=== PATIENT | male | born 1965 | race Caucasian/White ===

== ENCOUNTER → 2018-05-07 11:55 | Outpatient (CLI) | payer OTHER, SELFPAY ==
--- NOTE | 2018-05-07 12:03 | RAD_ITS ---
STUDY: X-RAY CHEST REASON FOR EXAM: Male, 53 years old. Cough TECHNIQUE: Frontal and lateral views of the chest COMPARISON: None. FINDINGS: The lungs are clear. There are no pleural effusions. There is no pneumothorax. The heart is normal in size. The visualized osseous structures are within normal limits. RAD/Chest PA and Lateral IMPRESSION: No acute thoracic pathology. Electronically Signed: Tyler Roebrt, at 23:55 EDT Tel , Service support ,
[2018-05-14 12:18] LABS: B. pertussis IgG 1.79 index (0.00-0.94)
== END ==
LOC: MFPLAB 11:56 → MTRAD 12:02
PROVIDERS: Family Provider Family Medicine; PCP Family Medicine; Visit Provider Family Medicine
DX: R05 Cough (principal)
CPT/HCPCS: 36415; 71046

== ENCOUNTER → 2018-11-18 14:08 | Outpatient (CLI) | payer OTHER, SELFPAY ==
[2018-10-24 08:27] VITALS: BMI 33.7
[2018-11-18 15:57] LABS: Vitamin B12 425 pg/mL (211-911); Vitamin D,25 Hydroxy 13.9 ng/mL (29.95-100.01)
[2018-11-18 16:02] LABS: Anion Gap 8 (5-15); BUN 12 mg/dL (7-18); BUN/Creat Ratio 12.4 RATIO (10-20); Calcium,Total 8.5 mg/dL (8.5-10.1); Chloride 105 mmol/L (98-107); Cholesterol 229 mg/dL (200); Creatinine, Serum 0.97 mg/dL (0.70-1.30); EST Glomerular Filtration Rate 86 mL/min (>60); Est Glom Filt Rate - Afr Amer 104 mL/min (>60); Glucose 89 mg/dL (74-106); High Density Lipoprotein 31 mg/dL; PSA,Total - Annual Screen 1.29 ng/mL (0.00-4.00); Potassium 3.9 mmol/L (3.5-5.1); Sodium Level 141 mmol/L (136-145); Triglycerides 416 mg/dL; Uric Acid 8.6 mg/dL (3.5-7.2)
== END ==
PROVIDERS: Family Provider Family Medicine; PCP Family Medicine; Visit Provider Family Medicine
DX: E78.5 Hyperlipidemia, unspecified (principal); M10.9 Gout, unspecified; E53.8 Deficiency of other specified B group vitamins; E55.9 Vitamin D deficiency, unspecified; Z12.5 Encounter for screening for malignant neoplasm of prostate; Z13.1 Encounter for screening for diabetes mellitus
CPT/HCPCS: 36415; 80048; 80061; 82306; 82607; 84153; 84550; G0103

== ENCOUNTER → 2018-12-14 09:20 | Outpatient (CLI) | payer OTHER, SELFPAY ==
[2018-10-24 08:27] VITALS: BMI 33.7
[2018-12-14 12:55] LABS: Uric Acid 6.7 mg/dL (3.5-7.2)
== END ==
PROVIDERS: Family Provider Family Medicine; PCP Family Medicine; Visit Provider Family Medicine
DX: E79.0 Hyperuricemia without signs of inflammatory arthritis and tophaceous disease (principal)
CPT/HCPCS: 36415; 84550

== ENCOUNTER → 2019-01-11 07:33 | Outpatient (CLI) | payer OTHER, SELFPAY ==
[2018-10-24 08:27] VITALS: BMI 33.7
--- NOTE | 2019-01-11 07:38 | CT_ITS ---
STUDY: CT CHEST WITHOUT CONTRAST REASON FOR EXAM: Male, 53 years old. Chronic productive cough. RADIATION DOSAGE (If Supplied By Facility): CTDIvol = ( 19.31 ) mGy, DLP = ( 623.68 ) mGycm TECHNIQUE: Transaxial imaging was performed without the administration of intravenous contrast material. Thin slice 1.25 mm axial 2-D MPR, 1.2 mm coronal and sagittal 2-D MPR in lung windows. Prone positioning. Individualized dose optimization techniques were used for this CT. COMPARISON: Chest x-ray 05/07/2018 FINDINGS: Supraclavicular: The right thyroid may be surgically absent. Isthmus nodule measuring 2.2 x 1.1 cm. Left thyroid inferior pole nodule measuring approximately 1.5 x 1.2 cm. Follow-up ultrasound characterization of the thyroid is recommended. Clinically correlate thyroid history. Body wall soft tissues: No acute process. Upper abdomen: No acute process. Osseous structures: No acute process. Mild thoracic spondylosis. Prominent low cervical degenerative disc disease at C6-C7 incompletely characterized. Mediastinum: Normal esophagus. No mass or lymphadenopathy. Heart: Borderline cardiomegaly, mild prominence of the left ventricle compared to the other chambers. No pericardial effusion or coronary calcifications. The right and left coronary arteries each emerge from the appropriate coronary sinus with right coronary dominance to the PDA with conventional branching anatomy. Aorta: Mild aneurysmal ectasia of the ascending aorta and proximal arch up to 4 cm. No visible atherosclerosis. Pulmonary arteries: Nondilated. Lungs: There is minimal dependent atelectasis. The lungs are otherwise clear. Central airways normal. Very minimal bronchial wall thickening in the lower lobes, nearly normal. Possibly reflecting mild chronic bronchiolitis. No apparent endobronchial lesions. No apparent aspirated or inspissated material within the bronchi. CT/Chest without Contrast IMPRESSION: Minimal bronchial wall thickening, suspicious for the presence of mild chronic bronchiolitis. No other acute pulmonary process is evident and there are no other significant chronic changes of lungs. No suspicious lesions. Borderline/mild cardiomegaly with prominence of left ventricle compared to the other chambers. Mild aneurysmal ectasia of the ascending aorta and proximal arch up to 4 cm. Electronically Signed: Bertin Shanks MD at 12:00 EDT Tel , Service support ,
== END ==
PROVIDERS: Family Provider Family Medicine; PCP Family Medicine; Referring Provider Internal Medicine Pulmonary Disease; Visit Provider Internal Medicine Pulmonary Disease
DX: R05 Cough (principal)
CPT/HCPCS: 71250

== ENCOUNTER → 2019-02-04 | Outpatient (CLI) | payer OTHER, SELFPAY ==
[2018-10-24 08:27] VITALS: BMI 33.7
[2019-02-04 16:15] LABS: Absolute Lymphocyte Count 1.52 X10^3/ul (0.83-4.51); Absolute Neutrophil Count 2.7 X10^3/uL (2.0-7.7); Basophil# 0.01 X10^3/uL; Basophil% 0.2 % (0-1); Eosinophils% 2.1 % (0-5); Hematocrit 45.2 % (40-54); Hemoglobin 14.9 g/dl (13.0-16.5); Lymphocyte # 1.52 X10^3/ul (4.0); Lymphocyte % 31.6 % (19-41); Mean Corpuscular Hgb 29.5 pg (27.0-32.0); Mean Corpuscular Volume 89.5 fL (80-94); Mean Platelet Vol. 11.5 fl (6.2-12.0); Monocyte# 0.47 X10^3/uL; Monocyte% 9.8 % (0-10); Neutrophil % 56.1 % (47-70); Platelet Count 188 K/mm3 (150-450); RBC Distribution Width CV 12.7 % (11.6-14.6); RBC Distribution Width SD 41.1 fl (35.1-43.9); Red Blood Count 5.05 M/mm3 (4.6-6.2); White Blood Count 4.8 K/mm3 (4.4-11.0)
[2019-02-04 16:19] LABS: POSITIVE COUNT NO; POSITIVE DIFFERENTIAL NO; POSITIVE MORPHOLOGY NO
[2019-02-04 16:33] LABS: Erythrocyte Sedimentation Rate 5 mm/hr (0-20)
[2019-02-07 14:11] LABS: Angiotensin Convert Enzyme 34 U/L (14-82)
== END | disposition home or self-care (01) ==
LOC: MTLAB 14:41
PROVIDERS: Family Provider Family Medicine; PCP Family Medicine; Referring Provider Internal Medicine Pulmonary Disease; Visit Provider Internal Medicine Pulmonary Disease
DX: T78.40XA Allergy, unspecified, initial encounter (principal); R05 Cough
CPT/HCPCS: 36415; 82164; 85025; 85652

== ENCOUNTER → 2019-02-11 | Outpatient (CLI) | payer OTHER, SELFPAY ==
[2018-10-24 08:27] VITALS: BMI 33.7
--- NOTE | 2019-02-11 15:00 | US_ITS ---
STUDY: THYROID ULTRASOUND REASON FOR EXAM: Male, 54 years old. Multinodular goiter. TECHNIQUE: Ultrasound evaluation of the thyroid was performed with real-time and static dinh-scale imaging. COMPARISON: CT of the chest, January 11, 2019. FINDINGS: RIGHT LOBE: The right lobe of the thyroid gland measures 4.9 x 2.1 x 1.9 cm. There is a homogeneous echotexture. In the upper pole of the right thyroid there is a 3 x 3 x 2 mm low-attenuation nodule with central hypodensity suggesting cyst or small nodule. In the upper to mid thyroid there is a hypoechoic nodule measuring 4 x 3 x 3 cm. In the lower pole there is isoechoic nodule measuring 1 x 0.7 x 0.9 cm. LEFT LOBE: The left lobe of the thyroid gland measures 4.0 x 2.0 x 1.9 cm. There is a homogeneous echotexture. There are no demonstrated solid, cystic or complex lesions. ISTHMUS: The isthmus measures 0.5 cm. The regional lymph nodes are normal. US/Thyroid IMPRESSION: Nodular densities in the right thyroid. Follow-up in 1 year is recommended. Electronically Signed: Benjamin Kong DO at 14:07 EDT Tel [phone], Service support ,
== END | disposition home or self-care (01) ==
PROVIDERS: Family Provider Family Medicine; PCP Family Medicine; Referring Provider Family Medicine; Visit Provider Family Medicine
DX: E07.89 Other specified disorders of thyroid (principal)
CPT/HCPCS: 76536

== ENCOUNTER → 2019-10-11 16:11 | Outpatient (CLI) | payer OTHER, SELFPAY ==
[2018-10-24 08:27] VITALS: BMI 33.7
[2019-10-11 17:36] LABS: Absolute Lymphocyte Count 1.67 X10^3/uL (0.83-4.51); Basophil# 0.03 X10^3/uL; Basophil% 0.6 % (0-1); Eosinophils% 1.9 % (0-5); Hematocrit 46.4 % (40-54); Hemoglobin 15.4 g/dL (13.0-16.5); Lymphocyte # 1.67 X10^3/ul (4.0); Mean Corp Hgb Conc 33.2 g/dL (32-36); Mean Corpuscular Hgb 30.3 pg (27.0-32.0); Mean Corpuscular Volume 91.3 fL (80-94); Mean Platelet Vol. 11.6 fl (6.2-12.0); Monocyte# 0.58 X10^3/uL; Monocyte% 10.8 % (0-10); NRBC Flagged by Analyzer 0 % (0-5); Neutrophil # 2.99 X10^3/uL (2.7-7.7); Neutrophil % 55.3 % (47-70); Platelet Count 187 K/mm3 (150-450); RBC Distribution Width CV 12.1 % (11.6-14.6); RBC Distribution Width SD 40.5 fl (35.1-43.9); Red Blood Count 5.08 M/mm3 (4.6-6.2); White Blood Count 5.4 K/mm3 (4.4-11.0)
[2019-10-11 18:03] LABS: ALB/GLOB Ratio 1.2 RATIO (0.9-2.4); AST(SGOT) 21 U/L (15-37); Alanine Aminotransfer ALT/SGPT 46 U/L (16-61); Albumin, Serum 3.9 g/dL (3.2-5.0); Alkaline Phosphatase 107 U/L (45-117); Anion Gap 4 (5-15); BUN 13 mg/dL (7-18); BUN/Creat Ratio 13.1 RATIO (10-20); Calcium,Total 8.9 mg/dL (8.5-10.1); Chloride 109 mmol/L (98-107); Creatinine, Serum 0.99 mg/dL (0.70-1.30); EST Glomerular Filtration Rate 83 mL/min (>60); Est Glom Filt Rate - Afr Amer 101 mL/min (>60); Globulin 3.3 g/dL (2.2-4.2); Glucose 82 mg/dL (74-106); Iron 66 ug/dL (65-175); Potassium 3.9 mmol/L (3.5-5.1); Protein, Total 7.2 g/dL (6.4-8.2); Sodium Level 140 mmol/L (136-145); Thyroid Stim Hormone (TSH) 1.68 uIU/mL (0.358-3.74); Vitamin B12 746 pg/mL (211-911); Vitamin D,25 Hydroxy 14.6 ng/mL (29.95-100.01)
[2019-10-11 18:05] LABS: Erythrocyte Sedimentation Rate 7 mm/hr (0-20)
[2019-10-15 12:07] LABS: Testosterone, Free 8.01 ng/dL (5.00-21.00)
[2019-10-15 13:44] LABS: Testosterone, % Free 2.56 % (1.50-4.20); Testosterone, Total 313 ng/dL (264-916)
== END ==
PROVIDERS: Family Provider Family Medicine; PCP Family Medicine; Referring Provider Family Medicine; Visit Provider Family Medicine
DX: E07.89 Other specified disorders of thyroid (principal); R79.89 Other specified abnormal findings of blood chemistry; E53.8 Deficiency of other specified B group vitamins; R53.83 Other fatigue; N52.9 Male erectile dysfunction, unspecified; Z12.5 Encounter for screening for malignant neoplasm of prostate
CPT/HCPCS: 36415; 80053; 82306; 82607; 83540; 84402; 84403; 84443; 85025; 85652

== ENCOUNTER → 2020-02-14 | Outpatient (CLI) | payer OTHER, SELFPAY ==
[2018-10-24 08:27] VITALS: BMI 33.7
[2020-02-14 17:35] LABS: Absolute Lymphocyte Count 1.52 X10^3/uL (0.83-4.51); Absolute Neutrophil Count 3.7 X10^3/uL (2.0-7.7); Basophil# 0.03 X10^3/uL; Basophil% 0.5 % (0-1); Eosinophil# 0.08 X10^3/uL; Eosinophils% 1.3 % (0-5); Hematocrit 46.6 % (40-54); Hemoglobin 15.2 g/dL (13.0-16.5); Lymphocyte # 1.52 X10^3/ul (4.0); Mean Corp Hgb Conc 32.6 g/dL (32-36); Mean Corpuscular Hgb 29.2 pg (27.0-32.0); Mean Corpuscular Volume 89.6 fL (80-94); Mean Platelet Vol. 11.8 fl (6.2-12.0); Monocyte% 11.5 % (0-10); NRBC Flagged by Analyzer 0 % (0-5); Neutrophil # 3.73 X10^3/uL (2.7-7.7); Neutrophil % 61.4 % (47-70); Platelet Count 189 K/mm3 (150-450); RBC Distribution Width CV 12.5 % (11.6-14.6); RBC Distribution Width SD 41.4 fl (35.1-43.9); White Blood Count 6.1 K/mm3 (4.4-11.0)
[2020-02-14 17:49] LABS: Erythrocyte Sedimentation Rate 9 mm/hr (0-20)
[2020-02-14 18:03] LABS: Vitamin B12 492 pg/mL (211-911); Vitamin D,25 Hydroxy 33.3 ng/mL
[2020-02-14 18:15] LABS: ALB/GLOB Ratio 1.2 RATIO (0.9-2.4); AST(SGOT) 33 U/L (15-37); Alanine Aminotransfer ALT/SGPT 63 U/L (16-61); Albumin, Serum 3.9 g/dL (3.2-5.0); Alkaline Phosphatase 99 U/L (45-117); Anion Gap 7 (5-15); BUN 13 mg/dL (7-18); BUN/Creat Ratio 12.1 RATIO (10-20); CRP 3.63 mg/L (0.0-3.0); Calcium,Total 8.8 mg/dL (8.5-10.1); Chloride 105 mmol/L (98-107); Creatinine, Serum 1.07 mg/dL (0.70-1.30); EST Glomerular Filtration Rate 76 mL/min (>60); Est Glom Filt Rate - Afr Amer 92 mL/min (>60); Globulin 3.3 g/dL (2.2-4.2); Glucose 111 mg/dL (74-106); Potassium 3.9 mmol/L (3.5-5.1); Protein, Total 7.2 g/dL (6.4-8.2); Sodium Level 139 mmol/L (136-145)
== END | disposition home or self-care (01) ==
LOC: MTLAB 15:57
PROVIDERS: PCP Family Medicine; Referring Provider Family Medicine; Visit Provider Family Medicine
DX: E53.8 Deficiency of other specified B group vitamins (principal); R10.9 Unspecified abdominal pain; R79.89 Other specified abnormal findings of blood chemistry
CPT/HCPCS: 36415; 80053; 82306; 82607; 85025; 85652; 86140

== ENCOUNTER → 2020-07-11 | Outpatient (CLI) | payer OTHER, SELFPAY ==
[2018-10-24 08:27] VITALS: BMI 33.7
[2020-07-11 16:25] LABS: Uric Acid 5.1 mg/dL (3.5-7.2)
[2020-07-11 18:25] LABS: Hemoglobin A1c 5.4 % (3.8-5.6)
== END | disposition home or self-care (01) ==
LOC: MTLAB 13:21
PROVIDERS: PCP Family Medicine
DX: M10.9 Gout, unspecified (principal); B49 Unspecified mycosis
CPT/HCPCS: 36415; 83036; 84550

== ENCOUNTER → 2020-08-10 | Outpatient (CLI) | payer OTHER, SELFPAY ==
[2018-10-24 08:27] VITALS: BMI 33.7
[2020-08-10 15:01] LABS: Absolute Lymphocyte Count 0.82 X10^3/uL (0.83-4.51); Absolute Neutrophil Count 5.3 X10^3/uL (2.0-7.7); Basophil# 0.02 X10^3/uL; Basophil% 0.3 % (0-1); Hematocrit 46.6 % (40-54); Hemoglobin 15.3 g/dL (13.0-16.5); Lymphocyte # 0.82 X10^3/ul (4.0); Lymphocyte % 12.7 % (19-41); Mean Corp Hgb Conc 32.8 g/dL (32-36); Mean Corpuscular Hgb 30.3 pg (27.0-32.0); Mean Corpuscular Volume 92.3 fL (80-94); Monocyte# 0.26 X10^3/uL; NRBC Flagged by Analyzer 0 % (0-5); Neutrophil # 5.29 X10^3/uL (2.7-7.7); Neutrophil % 81.8 % (47-70); POSITIVE MORPHOLOGY YES; Platelet Count 234 K/mm3 (150-450); RBC Distribution Width CV 13.2 % (11.6-14.6); RBC Distribution Width SD 44.7 fl (35.1-43.9); Red Blood Count 5.05 M/mm3 (4.6-6.2); White Blood Count 6.5 K/mm3 (4.4-11.0)
[2020-08-10 15:02] LABS: Differential Indicated SCAN CRITERIA MET
[2020-08-10 15:29] LABS: Vitamin B12 400 pg/mL (211-911)
[2020-08-10 16:41] LABS: Anisocytosis RARE; Macrocytosis RARE; Platelet Estimate ADEQUATE (ADEQ); Red Cell Morphology N CHROM NORMAL (NORM C&C)
== END | disposition home or self-care (01) ==
PROVIDERS: PCP Family Medicine
DX: D61.818 Other pancytopenia (principal)
CPT/HCPCS: 36415; 82607; 82746; 85025

== ENCOUNTER → 2020-09-21 09:10 | Outpatient (CLI) | payer OTHER, SELFPAY ==
[2018-10-24 08:27] VITALS: BMI 33.7
[2020-09-21 11:17] LABS: Anion Gap 5 (5-15); BUN 14 mg/dL (7-18); BUN/Creat Ratio 14.7 RATIO (10-20); Calcium,Total 8.7 mg/dL (8.5-10.1); Chloride 107 mmol/L (98-107); Cholesterol 206 mg/dL (200); Creatinine, Serum 0.95 mg/dL (0.70-1.30); EST Glomerular Filtration Rate 87 mL/min (>60); Est Glom Filt Rate - Afr Amer 106 mL/min (>60); Glucose 109 mg/dL (74-106); High Density Lipoprotein 32 mg/dL; PSA,Total - Annual Screen 1.37 ng/mL (0.00-4.00); Potassium 3.6 mmol/L (3.5-5.1); Sodium Level 140 mmol/L (136-145); Triglycerides 289 mg/dL; Very Low Density Lipoprotein 58 mg/dL (5-40)
[2020-09-21 14:38] LABS: Vitamin D,25 Hydroxy 20.5 ng/mL
== END ==
PROVIDERS: PCP Family Medicine; Referring Provider Family Medicine; Visit Provider Family Medicine
DX: E55.9 Vitamin D deficiency, unspecified (principal); Z13.1 Encounter for screening for diabetes mellitus; Z13.220 Encounter for screening for lipoid disorders; Z12.5 Encounter for screening for malignant neoplasm of prostate
CPT/HCPCS: 36415; 80048; 80061; 82306; 84153; G0103

== ENCOUNTER 2021-11-21 11:16 | Outpatient (CLI) | payer OTHER, SELFPAY ==
[2021-11-21 13:03] LABS: Vitamin B12 422 pg/mL (211-911); Vitamin D,25 Hydroxy 27.9 ng/mL
[2021-11-21 13:48] LABS: Anion Gap 5 (5-15); BUN 11 mg/dL (7-18); BUN/Creat Ratio 12.4 RATIO (10-20); Calcium,Total 8.6 mg/dL (8.5-10.1); Chloride 107 mmol/L (98-107); Cholesterol 210 mg/dL (200); Creatinine, Serum 0.89 mg/dL (0.70-1.30); EST Glomerular Filtration Rate 94 mL/min (>60); Est Glom Filt Rate - Afr Amer 114 mL/min (>60); Glucose 94 mg/dL (74-106); High Density Lipoprotein 36 mg/dL; PSA,Total - Annual Screen 2.01 ng/mL (0.00-4.00); Sodium Level 140 mmol/L (136-145); Triglycerides 240 mg/dL; Uric Acid 5.6 mg/dL (3.5-7.2); Very Low Density Lipoprotein 48 mg/dL (5-40)
== END 2021-11-21 23:59 | disposition short-term general hospital (02) ==
LOC: MTLAB 11:17
PROVIDERS: PCP Family Medicine; Referring Provider Family Medicine; Visit Provider Family Medicine
DX: Z13.1 Encounter for screening for diabetes mellitus (principal); Z12.5 Encounter for screening for malignant neoplasm of prostate; E78.5 Hyperlipidemia, unspecified; M10.9 Gout, unspecified; E53.8 Deficiency of other specified B group vitamins; E55.9 Vitamin D deficiency, unspecified
CPT/HCPCS: 36415; 80048; 80061; 82306; 82607; 84153; 84550; G0103

== ENCOUNTER → 2022-08-26 | Outpatient (CLI) | payer OTHER, SELFPAY ==
--- NOTE | 2022-08-26 13:35 | RAD_ITS ---
INDICATION: Neck pain. EXAMINATION/TECHNIQUE: X-RAY - XR Spine Cervical 4 or 5 Views COMPARISON: None. FINDINGS: VERTEBRAE: Preserved vertebral body height. No fracture. No spondylolisthesis. Straightening of the cervical lordosis. No significant facet arthropathy. DISCS: Multilevel disc space narrowing and endplate spondylosis. Bilateral neural foraminal narrowing. NECK SOFT TISSUES: No prevertebral soft tissue widening. LUNG APICES: Clear. RAD/Cerv Spine 4 or 5 Views IMPRESSION: Degenerative changes cervical spine without acute fracture or subluxation.. Electronically Signed: Benjamin Kong DO at 17:53 EDT ,
[2022-08-26 15:30] LABS: Absolute Lymphocyte Count 1.31 X10^3/uL (0.83-4.51); Absolute Neutrophil Count 2.9 X10^3/uL (2.0-7.7); Basophil# 0.03 X10^3/uL; Basophil% 0.6 % (0-1); Eosinophil# 0.09 X10^3/uL; Eosinophils% 1.8 % (0-5); Hematocrit 44.4 % (40-54); Hemoglobin 15.1 g/dL (13.0-16.5); Lymphocyte # 1.31 X10^3/ul (0.83-4.51); Lymphocyte % 26.8 % (19-41); Mean Corpuscular Hgb 31.9 pg (27.0-32.0); Mean Corpuscular Volume 93.7 fL (80-94); Mean Platelet Vol. 11.2 fl (6.2-12.0); Monocyte% 10.2 % (0-10); NRBC Flagged by Analyzer 0 % (0-5); Neutrophil # 2.94 X10^3/uL (2.7-7.7); Neutrophil % 60.4 % (47-70); Platelet Count 184 K/mm3 (150-450); RBC Distribution Width CV 12.8 % (11.6-14.6); RBC Distribution Width SD 43.8 fl (35.1-43.9); Red Blood Count 4.74 M/mm3 (4.6-6.2); White Blood Count 4.9 K/mm3 (4.4-11.0)
[2022-08-26 16:00] LABS: Erythrocyte Sedimentation Rate 8 mm/hr (0-20)
[2022-08-26 16:17] LABS: ALB/GLOB Ratio 1.1 RATIO (0.9-2.4); AST(SGOT) 27 U/L (15-37); Alanine Aminotransfer ALT/SGPT 47 U/L (16-61); Albumin, Serum 3.5 g/dL (3.2-5.0); Alkaline Phosphatase 88 U/L (45-117); Anion Gap 7 (5-15); BUN 8 mg/dL (7-18); BUN/Creat Ratio 8.4 RATIO (10-20); CRP < 2.90 mg/L (0.0-3.0); Calcium,Total 8.5 mg/dL (8.5-10.1); Chloride 107 mmol/L (98-107); Creatinine, Serum 0.95 mg/dL (0.70-1.30); EST Glomerular Filtration Rate 87 mL/min (>60); Est Glom Filt Rate - Afr Amer 105 mL/min (>60); Globulin 3.1 g/dL (2.2-4.2); Glucose 148 mg/dL (74-106); Potassium 3.6 mmol/L (3.5-5.1); Protein, Total 6.6 g/dL (6.4-8.2); Rheumatoid Factor < 10.0 IU/mL (<15); Sodium Level 140 mmol/L (136-145); Thyroid Stim Hormone (TSH) 1.08 uIU/mL (0.358-3.74); Uric Acid 4.9 mg/dL (3.5-7.2)
[2022-08-28 16:10] LABS: ANTINUCLEAR ANTIBODIES DIRECT Negative (Negative)
[2022-09-05 14:37] LABS: HLA B27 Negative (.)
== END | disposition home or self-care (01) ==
PROVIDERS: PCP Family Medicine; Referring Provider Family Medicine; Visit Provider Family Medicine
DX: M54.2 Cervicalgia (principal)
CPT/HCPCS: 36415; 72050; 80053; 81374; 84443; 84550; 85025; 85652; 86038; 86140; 86431

== ENCOUNTER → 2023-06-04 | Outpatient (CLI) | payer OTHER, SELFPAY ==
[2023-06-04 10:43] LABS: Anion Gap 6 (5-15); BUN 10 mg/dL (7-18); Calcium,Total 8.8 mg/dL (8.5-10.1); Chloride 105 mmol/L (98-107); Cholesterol 162 mg/dL (200); Creatinine, Serum 1.11 mg/dL (0.70-1.30); EST Glomerular Filtration Rate 72 mL/min (>60); Est Glom Filt Rate - Afr Amer 87 mL/min (>60); Glucose 115 mg/dL (74-106); High Density Lipoprotein 37 mg/dL; PSA,Total - Annual Screen 1.38 ng/mL (0.00-4.00); Potassium 3.8 mmol/L (3.5-5.1); Sodium Level 138 mmol/L (136-145); Triglycerides 173 mg/dL; Uric Acid 5.2 mg/dL (3.5-7.2); Very Low Density Lipoprotein 35 mg/dL (5-40)
== END | disposition home or self-care (01) ==
LOC: MTLAB 08:54
PROVIDERS: PCP Family Medicine; Visit Provider Family Medicine
DX: M10.9 Gout, unspecified (principal); Z13.1 Encounter for screening for diabetes mellitus; Z13.220 Encounter for screening for lipoid disorders; Z12.5 Encounter for screening for malignant neoplasm of prostate
CPT/HCPCS: 36415; 80048; 80061; 84153; 84550; G0103

== ENCOUNTER 2023-06-23 17:00 | Outpatient (RCR) | payer OTHER, SELFPAY ==
--- NOTE | 2023-04-14 09:23 | HP.OTEVAL_ITS ---
Patient's Visit Information KASSIE BURRIS is a 58 year old M, referred to Occupational Therapy by GBAY KLEIN, with a diagnosis of pain in right elbow, sprain in right elbow, right distal biceps repair. Date of Evaluation: 04/14/23 Occupational Therapist: Fiorella Polanco - Subjective Patient arrived for OT evaluation. Patient tore his distal biceps loading logs on a trailer. DOI was Mar 25 2023. Date of surgery 04/03/23. Patient is right hand dominant. Patient is 11 days post op. Patient has a follow up with surgeon ~05/15/23. Patient lives with his who can assist with ADLs/IADL's as needed. Patient has a R adjustable hinged elbow brace on all the time except for showering. Patient's brace stops him at -30 deg extension. Patient wants to return to work after April 28, on light duty. 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 Patient is in the office 50% of the time and out of the office 50% of the time. - ADLs Comments: indep prior to injury. pt needs assistance cutting food up or other two handed tasks - Pain R wrist pain 3 Pain Intensity Range: 8 - ROM Shoulder: R WNL Forearm: R able to achieve neutral supination and full pronation Wrist: R flexion 75, extension 45 ROM Comments: Patient's brace stops him at -30 deg extension and he is able to achieve ~95 deg flexion with brace on. most pain with supination and pronation and wrist movement at this time - Strength Certified Lactation Educator: L 74, 86, 87 Lateral Pinch: 20 Tripod Pinch: 18 Tip-to-Tip Pinch: 16 - Edema Other: no significant swelling noted - Sensation Sensation Comments: numbness in the right thumb - Quick DASH-Disab of Arm,Shoulder& Hand Quick DASH Score: 84.0900 - Goals Goal:: Patient will demonstrate improved solicitor patent strength in R hand within 5 degrees of L hand by discharge. Goal:: Patient will demonstrate WNL AROM in R UE by discharge. Goal:: Patient will report decreased pain to <3/10 on at least 4 occasions. Goal:: Patient will be indep with incision massage to assist with scar mgmt and healing. Goal:: Patient will report indep with all two handed tasks at home by d/c. - Rehabilitation General Assessment: Patient arrived 11 days post op R distal biceps repair (04/03/23) in a hinged elbow brace stopped at -30 deg extension. He is wearing the elbow brace all day except for bathing and is actively moving the elbow within the available flexion/extension range (-30 - 95 degrees). He is currently non weight bearing and not able to complete lifting with the R arm. Patient is having most pain/difficulty using R wrist and completing supination/pronation, possibly a result of the lateral antebrachial cutaneous nerve compression from surgery. Patient was provided with HEP including AROM to R shoulder, elbow, forearm, wrist, and hand with encouragement to complete 25 reps x 4 per day. Educated on edema mgmt as well. Scheduled patient 2x/week for 12 weeks to progress per protocol (volume 1 page 66 Diagnosis and Treatment Manual for Phyisicans and Therapists). Rehabilitation Potential: Good - Anticipated Interventions A/AAROM/PROM, Strengthening, Edema Control, Scar Care, Triggerpoint Release, Desensitization, Modalities, Home Program - Visit Plan Frequency: 2x /Week Duration: 3 Months General Plan: 2x/week for 12 weeks following distal biceps repair protocol. Plans to use moist heat, ultrasound, BTE, manual therapy and incison/scar mgmt, ROM, and strengthening when appropriate. TEXT: Thank you for the opportunity to evaluate your patient. For Medicare and Medicare HMO plans, please review the plan of care and approve it. It will need to be FAXED BACK to us at [phone] for Medicare purposes. Please let me know if there are questions or concerns regarding this plan of care. Physician Signature: Date:
--- NOTE | 2023-05-12 17:40 | OTREVAL_ITS ---
Re-Evaluation Intro: GABY KLEIN, It has been my pleasure to treat KASSIE BURRIS over the last 9 visits for pain in right elbow, sprain in right elbow, right distal biceps repair. Please see the progress note below for an update on the occupational therapy plan of care! Subjective Subjective: Patient is about 5.5 weeks post surgery. Follow-up on with doctor. 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 Goal:: Patient will demonstrate WNL AROM in R UE by discharge. Goal:: Patient will report decreased pain to <3/10 on at least 4 occasions. Goal:: Patient will be indep with incision massage to assist with scar mgmt and healing. Goal:: Patient will report indep with all two handed tasks at home by d/c. Anticipated Interventions Anticipated Interventions Anticipated Interventions: A/AAROM/PROM, Strengthening, Edema Control, Scar Care, Triggerpoint Release, Desensitization, Modalities and Home Program Re-Evaluation Ending Re-evaluation ending: Please do not hesitate to contact me at [phone] by phone or if you have questions or concerns regarding this new plan of care! Sincerely, Fiorella Polanco
--- NOTE | 2023-06-19 10:11 | HP.OTREVAL ---
Re-Evaluation Intro: GABY KLEIN, It has been my pleasure to treat KASSIE BURRIS over the last 18 visits for pain in right elbow, sprain in right elbow, right distal biceps repair. Please see the progress note below for an update on the occupational therapy plan of care! Subjective Subjective: Patient is 11 weeks 6 days post surgery distal biceps tendon repair. Pt stated that he has his follow up appt w/ surgeon next . 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, L 90 pinch R tripod: 23, L tripod 20 R lateral: 25, L 24 R pincer 18, L 18 R wrist flexion: 70 R wrist extension 60 R supination: 80 R pronation: 75 R elbow flexion: 120, extension - 5 pt has done well with ROM and strength of solidworks mechanical designer/pinch still has limitations with lifting due to sx Plan Plan Frequency: 2x /Week Duration: 3 Months Visits in this POC: 40 Plan: cont POC Goals Goals Patient Goals: Regain Strength, Decrease Pain, Return to Work, Use Hand/Wrist/Arm Normally Again, Decrease Tingling/Numbness, Increase ROM and Be More Independent in ADLS Goal:: Patient will demonstrate improved solidworks mechanical designer strength in R hand within 5 degrees of L hand by discharge. Goal:: Patient will demonstrate WNL AROM in R UE by discharge. Goal:: Patient will report decreased pain to <3/10 on at least 4 occasions. Goal:: Patient will be indep with incision massage to assist with scar mgmt and healing. Goal:: Patient will report indep with all two handed tasks at home by d/c. Anticipated Interventions Anticipated Interventions Anticipated Interventions: A/AAROM/PROM, Strengthening, Edema Control, Scar Care, Triggerpoint Release, Desensitization, Modalities and Home Program Re-Evaluation Ending Re-evaluation ending: Please do not hesitate to contact me at [phone] by phone or if you have questions or concerns regarding this new plan of care! Sincerely, Argelia Mccurdy, OTR/L, CHT
--- NOTE | 2023-10-01 12:43 | HP.OT.NRP ---
Patient Information Patient Information: KASSIE BURRIS was seen in my office for initial evaluation on 04/14/23. The following Plan of Care was established for this patient: POC Established Initial Frequency: 2x /Week Initial Duration: 3 Months Plan: cont POC Anticipated Interventions Anticipated Interventions: A/AAROM/PROM, Strengthening, Edema Control, Scar Care, Triggerpoint Release, Desensitization, Modalities and Home Program Last Seen Last Seen: This patient was last seen in our office 06/23/23. Pertinent comments regarding their Occupational therapy will appear below: pt progressed well toward his OT goals. 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 scheduled and due to time lapse in services pt d.c At this point I will be discontinuing this patient from occupational therapy. I would be happy to see this patient again in the future if found appropriate by the physician. Thank you! Argelia Mccurdy, OTR/L, CHT
== END 2023-06-23 19:00 | disposition home or self-care (01) ==
LOC: OT 17:00
PROVIDERS: PCP Family Medicine
DX: S53.491D Other sprain of right elbow, subsequent encounter (principal); M25.521 Pain in right elbow
CPT/HCPCS: 97110; 97140; 97166; 97530

== ENCOUNTER → 2024-06-23 | Outpatient (CLI) | payer OTHER, SELFPAY ==
[2024-06-23 10:14] LABS: Vitamin D,25 Hydroxy 25.1 ng/mL
[2024-06-23 10:26] LABS: Cholesterol 226 mg/dL (200); High Density Lipoprotein 53 mg/dL; Triglycerides 249 mg/dL; Uric Acid 5.4 mg/dL (3.5-7.2); Very Low Density Lipoprotein 50 mg/dL (5-40)
== END | disposition home or self-care (01) ==
LOC: MFPLAB 08:45
PROVIDERS: PCP Family Medicine; Visit Provider Family Medicine
DX: Z12.5 Encounter for screening for malignant neoplasm of prostate (principal); E55.9 Vitamin D deficiency, unspecified; Z13.220 Encounter for screening for lipoid disorders; M10.9 Gout, unspecified
CPT/HCPCS: 36415; 80061; 82306; 84153; 84550; G0103

== ENCOUNTER → 2024-12-20 | Outpatient (CLI) | payer OTHER, SELFPAY ==
[2024-12-20 11:09] LABS: Erythrocyte Sedimentation Rate 14 mm/hr (0-20)
[2024-12-20 11:11] LABS: Absolute Lymphocyte Count 1.14 X10^3/uL (0.83-4.51); Absolute Neutrophil Count 2.8 X10^3/uL (2.0-7.7); Basophil# 0.04 X10^3/uL; Basophil% 0.9 % (0-1); Eosinophil# 0.19 X10^3/uL; Eosinophils% 4.1 % (0-5); Hematocrit 47.5 % (40-54); Hemoglobin 15.8 g/dL (13.0-16.5); Lymphocyte # 1.14 X10^3/ul (0.83-4.51); Lymphocyte % 24.6 % (19-41); Mean Corp Hgb Conc 33.3 g/dL (32-36); Mean Corpuscular Hgb 31.2 pg (27.0-32.0); Mean Corpuscular Volume 93.7 fL (80-94); Mean Platelet Vol. 10.5 fl (6.2-12.0); Monocyte# 0.47 X10^3/uL; Monocyte% 10.1 % (0-10); NRBC Flagged by Analyzer 0 % (0-5); Neutrophil # 2.79 X10^3/uL (2.7-7.7); Neutrophil % 60.1 % (47-70); Platelet Count 205 K/mm3 (150-450); RBC Distribution Width CV 13.5 % (11.6-14.6); RBC Distribution Width SD 46.5 fl (35.1-43.9); Red Blood Count 5.07 M/mm3 (4.6-6.2); White Blood Count 4.6 K/mm3 (4.4-11.0)
[2024-12-25 02:06] LABS: Alternaria alternata <0.10 kU/L (Class 0); Aspergillus fumigatus <0.10 kU/L (Class 0); Bahia Grass <0.10 kU/L (Class 0); Beef <0.10 kU/L (Class 0); Bermuda Grass <0.10 kU/L (Class 0); Bluegrass, Kentucky <0.10 kU/L (Class 0); Cat Hair/Dander, Standard <0.10 kU/L (Class 0); Cedar, Mountain <0.10 kU/L (Class 0); Chocolate <0.10 kU/L (Class 0); Cladosporium herbarum <0.10 kU/L (Class 0); Cockroach, American <0.10 kU/L (Class 0); Codfish <0.10 kU/L (Class 0); Corn <0.10 kU/L (Class 0); D farinae Mite <0.10 kU/L (Class 0); D pteronyssinus <0.10 kU/L (Class 0); Dog Epithelia <0.10 kU/L (Class 0); Egg, Whole <0.10 kU/L (Class 0); Elm, American White <0.10 kU/L (Class 0); Hazelnut Tree <0.10 kU/L (Class 0); Hickory, White <0.10 kU/L (Class 0); Johnson Grass <0.10 kU/L (Class 0); Maple/Box Elder <0.10 kU/L (Class 0); Milk (Cow) <0.10 kU/L (Class 0); Mucor racemosus <0.10 kU/L (Class 0); Mugwort <0.10 kU/L (Class 0); Mulberry, White <0.10 kU/L (Class 0); Mussels <0.10 kU/L (Class 0); Nettle <0.10 kU/L (Class 0); Oak, White <0.10 kU/L (Class 0); Peanut <0.10 kU/L (Class 0); Penicillium chrysogen <0.10 kU/L (Class 0); Pigweed, Rough <0.10 kU/L (Class 0); Plantain, English <0.10 kU/L (Class 0); Pork <0.10 kU/L (Class 0); Ragweed, Short/Common <0.10 kU/L (Class 0); Salmon <0.10 kU/L (Class 0); Sheep Sorrel(Dock) <0.10 kU/L (Class 0); Shrimp <0.10 kU/L (Class 0); Soybean <0.10 kU/L (Class 0); Stemphylium herbarum <0.10 kU/L (Class 0); Sweet Gum <0.10 kU/L (Class 0); Sycamore, American <0.10 kU/L (Class 0); Tuna <0.10 kU/L (Class 0); Wheat <0.10 kU/L (Class 0)
== END | disposition home or self-care (01) ==
LOC: MFPLAB 08:14
PROVIDERS: PCP Family Medicine; Referring Provider Family Medicine; Visit Provider Family Medicine
DX: L20.9 Atopic dermatitis, unspecified (principal)
CPT/HCPCS: 36415; 84443; 85025; 85652; 86003; 86005

== ENCOUNTER → 2025-04-10 | Outpatient (CLI) | payer OTHER, SELFPAY ==
[2025-04-10 18:21] LABS: Calcium 9.2 mg/dL (7.6-11.0); Magnesium 2.3 mg/dL (1.5-2.2); Potassium 4.3 mmol/L (3.3-5.1)
[2025-04-10 18:25] LABS: Vitamin B12 416 pg/mL (180-914)
== END | disposition home or self-care (01) ==
LOC: MFPLAB 16:30
PROVIDERS: PCP Family Medicine; Referring Provider Family Medicine; Visit Provider Family Medicine
DX: R25.2 Cramp and spasm (principal)
CPT/HCPCS: 36415; 82310; 82607; 83735; 84132

== ENCOUNTER → 2025-06-02 | Outpatient (CLI) | payer OTHER, SELFPAY ==
--- NOTE | 2025-06-02 07:33 | ART_ITS ---
Reason For Study Reason For Study: Bilateral leg pain and cramps Procedure A bilateral lower extremity continuous wave Doppler with analog waveform analysis and ankle brachial indexes. Left Segmental Pressures Left brachial= 150mmHg. Left posterior tibial artery = 173mmHg. Left dorsalis pedis artery = 161mmHg. Left digit = 111 mmHg. The left dorsalis pedis waveforms are triphasic. The left posterior tibial artery waveforms are triphasic. Right Segmental Pressures Right brachial= 145mmHg. Right posterior tibial artery = 178mmHg. Right dorsalis pedis artery = 171mmHg. Right digit = 109 mmHg. The right dorsalis pedis waveforms are triphasic. The right posterior tibial artery waveforms are triphasic. Indices The right ankle brachial index by the dorsalis pedis is 1.14. The right ankle brachial index by the posterior tibial artery is 1.19. The right digital-brachial index is 0.73. The left ankle brachial index by the dorsalis pedis is 1.07. The left ankle brachial index by the posterior tibial artery is 1.15. The left digital-brachial index is 0.74. VL/Ankle Brachial Index Interpretation Summary Triphasic Doppler waveforms are noted at ankle level bilaterally. Pulse-volume recordings appear satisfactory at ankle and digital levels bilaterally. Resting ankle-brachial indices are normal bilat erally. Digital-brachial indices are normal bilaterally. There is no evidence of significant arterial occlusive disease in the lower ext remities bilaterally. Ordering Physician: Augustine Reyes Referring Physician: Cliff Mirza MD Performed By: Mary Zurita RVT
--- OUTSIDE RECORDS SUMMARY | 2025-06-02 07:40 | XMS RPT_ITS | CCD ---
Author Organization [facility] Care Team Providers Care Repacker Name Role Phone Hermes SHAW, Naren Luo Unavailable BENIGNO NORRIS MD Attending Unavailable BENIGNO NORRIS MD Primary Care Unavailable BENIGNO NORRIS MD Admitting Unavailable Marina Mandujano MD Unavailable [phone] Unavailable Primary Care Provider UnavailAyo Lawrence MD Primary Care Provider AYO MIRZA Primary Care UnavailNEEMA Oliva Referring Unavailable GRISEL FLORENCE Attending Unavailable AYO MIRZA Primary Care UnavailNEEMA Oliva Attending Unavailable GRISEL FLORENCE Referring Unavailable AYO MIRZA Referring UnavailAYO Lawrence Primary Care UnavailGRISEL Alexander Attending Unavailable Marina Mandujano MD Unavailable Dr. Ayo Mirza MD Primary Care Provider Dr. Ayo Mirza MD Attending Provider Dr. Ayo Mirza MD Referring Provider John Baird Attending Provider [phone] Ayo Mirza Primary Care Unavailable Ayo Mirza Attending Unavailable Ayo Mirza Referring Unavailable Ayo Mirza Primary Care Unavailable Ayo Mirza Attending Unavailable Ayo Mirza Primary Care Unavailable McMorrow CHRONOMETER ASSEMBLER AND ADJUSTER, Augustine Attending Unavailable McMorrow CHRONOMETER ASSEMBLER AND ADJUSTER, Augustine Referring Unavailable Ayo Mirza Referring Unavailable Ayo Mirza Primary Care Unavailable John Baird Attending Unavailable Ayo Mirza Referring Unavailable Ayo Mirza Primary Care Unavailable Ayo Mirza Attending Unavailable Allergies Allergy Classification Reported Allergen(s) Allergy Type Date of Onset Reaction(s) Facility (4 sources) Budesonide / formoterol; Translations: [BUDESONIDE-FORM OTEROL] Drug Allergy 06-23-2023 Rash [facility] [place] (4 sources) Escitalopram; Translations: [ESCITALOPRAM] Drug Allergy 06-23-2023 Other: See Comments [facility] [place] (4 sources) varenicline; Translations: [VARENICLINE] Drug Allergy 06-23-2023 Diarrhea [facility] Medications Current Medications Medication Drug Class(es) Dates Sig (Normalized) Sig (Original) allopurinol 100 mg oral tablet (14 sources) Xanthine Oxidase Inhibitor Start: 02-28-2024 take 2 tablets by mouth once daily Allopurinol 100 mg tablet Active 200 mg PO daily February 28, 2024 12:00am Start: 09-10-2021 End: 08-14-2023 take 1 tablet by mouth once daily allopurinol (ZYLOPRIM) 300 MG tablet Take 1 Tablet by mouth daily. 90 Tablet 3 09/10/2021 Active take 2 tablets by mo [facility] once daily allopurinol (ZYLOPRIM) 100 mg tablet Take 200 mg by mouth once daily. 0 Active Comment on above: Take 300 mg by mouth once daily. Take 1 tablet by miguel once daily. Take 200 mg by mouth once daily. azithromycin 250 mg oral tablet (1 source) Macrolide Antimicrobial Start: 03-16-20 25 take 2-5 tablets by mouth once daily Azithromycin 250 mg tablet Active 0 PO .COMPLEX 6 March 16, 2025 12:00am take 500 mg today (day 1), then 250 mg for 4 days (days 2-5) PO colchicine 0.6 mg oral tablet (10 sources) Start: 05-23-20 End: 08-14-20 23 take 1 tablet by mouth once daily Colcrys 0.6 MG tablet Take 1 Tablet by mouth daily. 30 Tablet 5 05/23/2021 Active Start: 11-21-2017 End: 02-28-2024 Colchicine 0.6 mg capsule Di scontinued 0 .ROUTE .COMPLEX 3 November 21, 2017 1:00am May 5th, 2024 9:10am 1.2mg PO x1, then 0.6mg PO 1 hour later Start: 11-21-2017 Colchicine Act stacey 0 .ROUTE .COMPLEX November 21, 2017 12:00am 1.2mg PO x1, then 0.6mg PO 1 hour later Comment on above: Take 1 tablet by miguel th once daily. dicyclomine hydrochloride 10 mg oral capsule (4 sources) Anticholinergic Start: 02-15-20 take 1 capsule by mouth three times daily dicyclomine (BENTYL) 10 MG capsule Take 10 mg by mouth 3 times daily. 02/15/2020 Active escitalopram 5 mg oral tablet (4 sources) Serotonin Reuptake Inhibitor Start: 02-21-20 take 1 tablet by mouth once daily escitalopram (LEXAPRO) 5 MG tablet Take 5 mg by mouth daily. 02/21/2020 Active polyethylene glycol 3350 904209 mg / potassium chloride 2970 mg / sodium bicarbonate 6740 mg / sodium chloride 5860 mg / sodium sulfate 15345 mg powder for oral solution (1 source) Osmotic Laxative Start: 06-23-20 End: 06-23-20 peg 3350-Electrolytes (GOLYTELY) 236-22.74-6.74 -5.86 gram suspension Take 4,000 mL by mouth one time only for 1 dose. 1 Each 0 06/23/2023 06/23/2023 Active Comment on above: Take 4,000 mL by miguel one time only for 1 dose. Completed/Discontinued Medications Medication Drug Class(es) Dates Sig (Normalized) Sig (Original) acyclovir 0.05 mg/mg topical ointment (2 sources) Herpesvirus Nucleoside Analog DNA Polymerase Inhibitor, Herpes Simplex Virus Nucleoside Analog DNA Polymerase Inhibitor, Herpes Zoster Virus Nucleoside Analog DNA Polymerase Inhibitor Start: 04-26-2024 End: 05-03-2024 Acyclovir 5 % ointment Discontinued 1 NMA TOPICAL 6 times per day 15 7 April 26, 2024 12:00am May 02, 2024 12:00am May 03, 2024 12:04am cephalexin 500 mg oral capsule (3 sources) Cephalosporin Antibacterial Start: 04-23-2022 End: 06-13-2022 take 1 capsule by mouth three times daily Cephalexin 500 mg capsule Discontinued 500 mg PO THREE TIMES A DAY April 23, 2022 12:00am June 13, 2022 1:30pm cyclobenzaprine hydrochloride 10 mg oral tablet (3 sources) Muscle Relaxant End: 08-14-2023 take 1 tablet by mouth every eight hours as needed cyclobenzaprine (FLEXERIL) 10 mg tablet Take 10 mg by mouth three times daily as needed. 0 08/14/2023 Discontinued Comment on above: Take 10 mg by mouth three times daily as needed. LORazepam 1 mg oral tablet (3 sources) Benzodiazepine take 1 tablet by mouth three times daily LORazepam (ATIVAN) 1 mg tablet Take 1 mg by mouth three times daily. 0 Active Comment on above: Take 1 mg by mouth t hree times daily. meloxicam 15 mg oral tablet (4 sources) Nonsteroidal Anti-inflammatory Drug Start: 04-26-2024 End: 03-16-2025 take 1 tablet by mouth once daily Meloxicam 15 mg tablet Discontinued 15 mg PO daily April 26, 2024 12:00am March 16, 2025 3:44pm Start: 04-26-2024 End: 04-26-2024 take 1 tablet by mouth once daily Meloxicam 7.5 mg tablet Discontinued 7.5 mg PO DAILY April 26, 2024 12:00am April 26, 2024 2:29pm methylPREDNISolone 4 mg oral tablet (3 sources) Corticosteroid Start: 05-17-2018 End: 05-22-2018 take 1 tablet by mouth once Methylprednisolone (Medrol (Jose Antonio)) 4 mg tablets,dose pack Discontinued 4 mg PO per package directions 21 5 May 17, 2018 12:00am May 21, 2018 12:00am May 22, 2018 12:07am predniSONE 10 mg oral tablet (16 sources) Start: 02-28-2024 End: 03-14-2024 Prednisone 10 mg tablet Discontinued 10 mg PO .COMPLEX as needed for itching 35 15 February 28, 2024 12:00am March 13, 2024 12:00am March 14, 2024 12:04am 10 mg orally ; 40mg x5 days, 20mg x5 days, 10mg x5 days PRN; Start: 07-30-2021 predniSONE (DE LTASONE) 20 MG tablet For gout attack: take 3 tabs once daily x 3 days, then 2 tabs/day x 3 days then 1 tab daily x 2 days. 17 Tablet 1 07/30/2021 Active Start: 05-02-2020 End: 08-14-2023 predniSONE (DELTASONE) 5 MG tablet take 4 tablets by mouth daily for 3 days then 2 for 3 days then 1 for 4 days 05/02/2020 Active Start: 10-24-2018 End: 06-13-2022 take 2 tablets by mouth once daily, then take 1 tablet by mouth once daily, then take 0.5 tablet by mouth once daily Prednisone 20 mg tablet Discontinued 20 mg PO DAILY October 24, 2018 1:00am June 13, 2022 1:30pm 2 pills daily x 3 days, then 1 pill daily x 4 days, then 1/2 pill daily x 4 days. Comment on above: take 4 tablets by mo uth daily for 3 days then 2 for 3 days then 1 for 4 days sildenafil 100 mg oral tablet (3 sources) Phosphodiesterase 5 Inhibitor Start: End: sildenafil (VIAGRA) 100 mg tablet Take 30 min to 1 hour before sexual activity. 10 tablet 11 07/26/2020 08/14/2023 Discontinued Comment on above: Take 30 min to 1 anne r before sexual activity. tadalafil 20 mg oral tablet (3 sources) Phosphodiesterase 5 Inhibitor End: 023 take 1 tablet by mouth once daily Tadalafil (CIALIS) 20 mg tab(s) Take 20 mg by mouth once daily. 0 08/14/2023 Discontinued Comment on above: Take 20 mg by mouth once daily. triamcinolone acetonide 1 mg/ml topical cream (3 sources) Corticosteroid End: 023 triamcinolone acetonide (KENALOG) 0.1 % cream Apply to affected area twice daily. 0 08/14/2023 Discontinued Comment on above: Apply to affected ar ea twice daily. valACYclovir 1000 mg oral tablet (5 sources) Herpesvirus Nucleoside Analog DNA Polymerase Inhibitor, Herpes Simplex Virus Nucleoside Analog DNA Polymerase Inhibitor, Herpes Zoster Virus Nucleoside Analog DNA Polymerase Inhibitor Start: 022 End: Valacyclovir (Valtrex) 1 gram tablet Discontinued 2000 mg PO Q12H as needed February 28, 2024 9:10am March 16, 2025 3:44pm Problems Active Problems Problem Classification Problem Date Documented Da te Episodic/Chronic Acute bronchitis (2 sources) Acute bronchitis; Translations: [Acute bronchitis, unspecified] 03-16-2025 Episodic Allergic reactions (1 source) Atopic dermatitis, unspecified; Translations: [Atopic dermatitis, unspecified] Onset: 01-04-2025 Chronic Disorders of lipid metabolism (7 sources) Hyperlipidemia; Translations: [Hyperlipidemia, unspecified] Onset: 09-26-2005 05-09-2020 Chronic Gout and other crystal arthropathies (7 sources) 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; Translations: [Chronic gout due to renal impairment, multiple sites, without tophus (tophi)] Onset: 05-09-2020 05-09-2020 Chronic Headache; including migraine (2 sources) Headache; Translations: [Headache] 03-16-2025 Episodic Headache; including migraine (1 source) Headache; including migraine; Translations: [Headache, unspecified] Onset: 03-16-2025 Open wounds of extremities (3 sources) Puncture wound of left lower leg; Translations: [Puncture wound without foreign body, left lower leg, initial encounter] 04-23-2022 Episodic Other and unspecified benign neoplasm (5 sources) History of polyp of colon; Translations: [Personal history of colonic polyps] Onset: 08-07-2023 06-23-2023 Episodic Other and unspecified benign neoplasm (1 source) Tubular adenoma ; Translations: [Benign neoplasm, unspecified site] 08-14-2023 Episodic Other and unspecified benign neoplasm (1 source) Personal history of colonic polyps; Translations: [History of colonic polyps] Onset: 08-07-2023 Episodic Other connective tissue disease (1 source) Trochanteric bursitis; Translations: [Trochanteric bursitis, left hip] Onset: 03-12-2018 03-12-2018 Episodic Other connective tissue disease (2 sources) Cramp and spasm; Translations: [Cramp and spasm] Onset: 04-13-2025 Episodic Other nervous system disorders (2 sources) Compression injury of nerve; 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, unspecified] 04-26-2024 Chronic Other nutritional; endocrine; and metabolic disorders (7 sources) Metabolic syndrome X; Translations: [Metabolic syndrome] Onset: 09-26-2005 05-09-2020 Chronic Other skin disorders (3 sources) Skin lesion; Translations: [Disorder of the skin and subcutaneous tissue, unspecified] 01-02-2022 Episodic Other skin disorders (2 sources) Eruption; Translations: [Rash and other nonspecific skin eruption] 02-28-2024 Episodic Skin and subcutaneous tissue infections (3 sources) Cellulitis of lower leg; Translations: [Cellulitis of left lower limb] 04-23-2022 Episodic Superficial injury; contusion (6 sources) Wood splinter under fingernail; Translations: [Superficial foreign body of unspecified finger, initial encounter] 06-13-2022 Episodic Viral infection (5 sources) Herpes simplex type 1 infection; Translations: [Herpesviral infection, unspecified] 01-02-2022 Episodic Past or Other Problems Problem Classification Problem Date Documented Da te Episodic/Chronic Other circulatory disease (7 sources) H/O: hypertension; Translations: [Personal history of other diseases of the circulatory system] Onset: 09-26-2005 05-09-2020 Episodic Other connective tissue disease (3 sources) Pain in finger; Translations: [Pain in unspecified finger(s)] Onset: 05-24-2012 05-24-2012 Episodic Other screening for suspected conditions (not mental disorders or infectious disease) (3 sources) Encounter for screening for malignant neoplasm of colon; Translations: [Patient encounter status] Onset: 08-07-2023 08-07-2023 Episodic Unclassified (1 source) Problem Results Test Name Value Interpretation Reference Range Facility L501.0895on 04-10-2025 Calcium [Mass/Vol] 9.2 mg/dL Normal 7.6-11.0 [facility] Comment on above: Order Comment: Order Date: 04/10/25 Order Info: [id number] - CA Order Info: [id number] - MG Order Info: [id number] - K Performed By: #### L 501.0895 #### [facility] [address] [place] [address], [address] Magnesiumon 04-10-2025 Magnesium [Mass/Vol] 2.3 mg/dL High 1.5-2.2 [facility] Comment on above: Order Comment: Order Date: 06/23/24 Order Info: [id number] - VITD25 Performed By: #### L 506.1000, L501.1400, L500.4100, L501.9910 #### [facility] [address] [place], [place], [address] Magnesium measurement (mass/ volume)Ordered By: Augustine Reyes on 04-10-2025 Magnesium (Unsp spec) [Mass/Vol] 2.3 mg/dL High 1.5-2.2 [facility] Potassiumon 04-10-2025 Potassium [Moles/Vol] 4.3 mmol/L Normal 3.3-5.1 [facility] Comment on above: Order Comment: Order Date: 04/10/25 Order Info: [id number] - CA Order Info: [id number] - MG Order Info: [id number] - K Performed By: #### L 501.5600 #### [facility] [address] [place], [place], [address] Potassium measurement (mass/ volume)Ordered By: Augustine Reyes on 04-10-2025 Potassium (Unsp spec) [Mass/Vol] 4.3 mmol/L 3.3-5.1 [facility] Serum or plasma calcium jadiel urement (mass/volume)Ordered By: Augustine Reyes on 04-10-2025 Calcium [Mass/Vol] 9.2 mg/dL 7.6-11.0 [facility] Vitamin B12on 04-10-2025 Cobalamin (Vitamin B12) [Mass/Vol] 416 pg/mL Normal 180-914 [facility] Comment on above: Order Comment: Order Date: 04/10/25 Order Info: [id number] - CA Order Info: [id number] - MG Order Info: [id number] - K Performed By: #### L 503.0106 #### [facility] [address] [place], [place], [address] Vitamin B12 ser/plasOrdered By: Augustine Reyes on 04-10-2025 Cobalamin (Vitamin B12) [Mass/Vol] 416 pg/mL 180-914 [facility] Urgent Care Visit Reporton 0 03-16-2025 Urgent Care Visit Report [facility] [address] , [address] [place], [place] [address] [phone] OFFICE VISIT Date of Service: 03/16/25 MR#: [id number] Acct: [id number] Name: HUBERT BURRIS Rep #: [id number] : 1965 Provider: JAVON Jeffries Age/Sex: 60/M Location: [facility] Status: Signed Intake Vital Signs 04/26/24 14:26 03/16/25 15:40 Height 5 ft 10 in 5 ft 10 in Weight: 235 lb 250 lb 8 oz BMI 33.7 35.9 BP 142/96 H 124/88 H Blood Pressure Location Lt brachial Position Sitting Sitting Respiration 16 Pulse 71 73 Pulse Source Monitor Temp 98 F 97.9 F Temp Source Temporal Oral Pulse Oximetry (%) 97 98 Oxygen Delivery Method room air room air Intake Visit Reasons: CONGESTION IN CHEST / COUGH Accompanied by: Self Allergies No Known Allergies Allergy (Verified 03/16/25 15:44) Medications ???Medication ???Instructions ???Recorded ???Confirmed ???Type allopurinol 100 mg tablet 200 mg PO QDAY 02/28/24 03/16/25 H istory azithromycin 250 mg tablet See Rx Instructions PO .COMPLEX #6 03/16/25 03/16/25 Rx tabs Nurse's Note: Patient has chest congestion and cough and headache and sinus pressure going on. Patient cough just started today but the other stuff has been going on for 4 days. PFSH Medical History (Updated 03/16/25 @ 16:14 by JAVON Christianson) Herpetic yovanny Pinched nerve in neck Cellulitis of left lower leg Puncture wound of left lower leg Contusion of left lower leg Herpes simplex type 1 infection Skin lesion Gout Surgical History History of hernia repair History of elbow surgery H/O shoulder surgery Fusion of toes Family History Father Cancer Mother Dementia Social History Smokeless tobacco user: chewing tobacco alcohol intake: current alcohol intake frequency: holidays/special occasions only HPI HPI Details: HUBERT BURRIS, is a 60 M who presents to the office today for complaint of cough, congestion and sinus pressure/pain along with headache for the past week. Patient denies hemoptysis, shortness of breath or difficult breathing. No fever, chills, sweats. No nausea, vomiting or diarrhea. No loss of taste or smell. No other associated symptoms or alleviating/aggravati ng factors. ROS Const Constitutional: No other (As above) Exam Const General: cooperative and well developed HENMT Head: normal to inspection and atraumatic Ears: hearing grossly normal bilaterally Nose: nasal discharge clear Face and sinus: normal facial exam Mouth: oral mucosae normal Throat: abnormal tonsil bilaterally hypertrophy 1+ Resp Effort Inspection: normal respiratory effort and no audible wheezes Auscultation: Bilateral: Clear to Auscultation Cardio Palpation: normal PMI Rate: regular rate Rhythm: regular rhythm Neuro General: patient alert and CN's II-XI intact bilaterally Psych Appearance: grossly normal Mental Status: mental status grossly normal Office Meds ketorolac 30 mg/mL injection syringe Performing Provider: JAVON Christianson Performing Location[facility] Administered by: Antoinette Alvarado MA on 03/16/25 16:01 Dose Route Admin Location Dispensed Lot Number Expiration Date [facility] Man ufacturer 30 mg IM Right deltoid 1 mL [id number] 07/26/25 57255-455-12 [employer] Coding Level of Care Code Off vis,new,level 3 Diagnoses Acute bronchitis J20.9 Headache R51.9 Assessment and Plan Assessment and Plan (1) Acute bronchitis: Status: Acute (2) Headache: Status: Acute Orders: Orders Ketorolac Injection 03/16/25 R51.9 - Headache, unspecified Medications: New azithromycin take 500 mg today (day 1), then 250 mg for 4 days (days 2-5) PO 6 tabs 0RF Plan Azithromycin as prescribed today. Toradol injection given in the office today. Encouraged to get plenty of rest, drink lots of clear liquids, and use Tylenol or Ibuprofen (unless contraindicated) for fever and comfort. Patient also educated on other symptomatic management techniques. To be seen in 7-10 days if no improvement; sooner if worsening of symptoms. Patient advised of potential red flags and when appropriate to report to the ED. Patient verbalized understanding and agreement with all the above. 03/17/25 0803 Date John Montesinos Signature: Date (if applicable) CC: Normal [facility] Allergens, Zone 8on 12-26-19 25 A. ALTERNATA <0.10 Normal Class 0 [facility] Comment on above: Order Comment: Order Date: 06/23/24 Order Info: [id number] - VITD25 Performed By: #### L 506.1000, L501.1400, L500.4100, L501.9910 #### [facility] [address] [place], [address] ASPERGILLUS FUM <0.10 Normal Class 0 [facility] Comment on above: Order Comment: Order Date: 06/23/24 Order Info: [id number] - VITD25 Performed By: #### L 506.1000, L501.1400, L500.4100, L501.9910 #### [facility] [address] [place], [address] BAHIA GRASS <0.10 Normal Class 0 [facility] Comment on above: Order Comment: Order Date: 06/23/24 Order Info: [id number] - VITD25 Performed By: #### L 506.1000, L501.1400, L500.4100, L501.9910 #### [facility] [address] [place], [address] BERMUDA GRASS <0.10 Normal Class 0 [facility] Comment on above: Order Comment: Order Date: 06/23/24 Order Info: [id number] - VITD25 Performed By: #### L 506.1000, L501.1400, L500.4100, L501.9910 #### [facility] [address] [place], [address] [place], [place] <0.10 Normal Class 0 [facility] Comment on above: Order Comment: Order Date: 06/23/24 Order Info: [id number] - VITD25 Performed By: #### L 506.1000, L501.1400, L500.4100, L501.9910 #### [facility] [address] [place], [address] CAT HAIR/DANDER <0.10 Normal Class 0 [facility] Comment on above: Order Comment: Order Date: 06/23/24 Order Info: [id number] - VITD25 Performed By: #### L 506.1000, L501.1400, L500.4100, L501.9910 #### [facility] [address] [place], [address] CLADOSPOR HERB <0.10 Normal Class 0 [facility] Comment on above: Order Comment: Order Date: 06/23/24 Order Info: [id number] - VITD25 Performed By: #### L 506.1000, L501.1400, L500.4100, L501.9910 #### [facility] [address] [place], [address] COCKROACH,AMER <0.10 Normal Class 0 [facility] Comment on above: Order Comment: Order Date: 06/23/24 Order Info: [id number] - VITD25 Performed By: #### L 506.1000, L501.1400, L500.4100, L501.9910 #### [facility] [address] [place], [address] D FARINAE MITE <0.10 Normal Class 0 [facility] Comment on above: Order Comment: Order Date: 06/23/24 Order Info: [id number] - VITD25 Performed By: #### L 506.1000, L501.1400, L500.4100, L501.9910 #### [facility] [address] [place], [address] D PTERONYSSINUS <0.10 Normal Class 0 [facility] Comment on above: Order Comment: Order Date: 06/23/24 Order Info: [id number] - VITD25 Performed By: #### L 506.1000, L501.1400, L500.4100, L501.9910 #### [facility] [address] [place], [address] DOG EPITHELIA <0.10 Normal Class 0 [facility] Comment on above: Order Comment: Order Date: 06/23/24 Order Info: [id number] - VITD25 Performed By: #### L 506.1000, L501.1400, L500.4100, L501.9910 #### [facility] [address] [place], [address] ELM,AMER WHITE <0.10 Normal Class 0 [facility] Comment on above: Order Comment: Order Date: 06/23/24 Order Info: [id number] - VITD25 Performed By: #### L 506.1000, L501.1400, L500.4100, L501.9910 #### [facility] [address] [place], [address] HAZELNUT TREE <0.10 Normal Class 0 [facility] Comment on above: Order Comment: Order Date: 06/23/24 Order Info: [id number] - VITD25 Performed By: #### L 506.1000, L501.1400, L500.4100, L501.9910 #### [facility] [address] [place], [address] HICKORY, WHITE <0.10 Normal Class 0 [facility] Comment on above: Order Comment: Order Date: 06/23/24 Order Info: [id number] - VITD25 Performed By: #### L 506.1000, L501.1400, L500.4100, L501.9910 #### [facility] [address] [place], [address] MARY GRASS <0.10 Normal Class 0 [facility] Comment on above: Order Comment: Order Date: 06/23/24 Order Info: [id number] - VITD25 Performed By: #### L 506.1000, L501.1400, L500.4100, L501.9910 #### [facility] [address] [place], [address] MAPLE/BOX ELDER <0.10 Normal Class 0 [facility] Comment on above: Order Comment: Order Date: 06/23/24 Order Info: [id number] - VITD25 Performed By: #### L 506.1000, L501.1400, L500.4100, L501.9910 #### [facility] [address] [place], [address] MOUNTAIN CEDAR <0.10 Normal Class 0 [facility] Comment on above: Order Comment: Order Date: 06/23/24 Order Info: [id number] - VITD25 Performed By: #### L 506.1000, L501.1400, L500.4100, L501.9910 #### [facility] [address] [place], [address] MUCOR RACEMOSUS <0.10 Normal Class 0 [facility] Comment on above: Order Comment: Order Date: 06/23/24 Order Info: [id number] - VITD25 Performed By: #### L 506.1000, L501.1400, L500.4100, L501.9910 #### [facility] [address] [place], [address] MUGWORT <0.10 Normal Class 0 [facility] Comment on above: Order Comment: Order Date: 06/23/24 Order Info: [id number] - VITD25 Performed By: #### L 506.1000, L501.1400, L500.4100, L501.9910 #### [facility] [address] [place], [address] MULBERRY, WHITE <0.10 Normal Class 0 [facility] Comment on above: Order Comment: Order Date: 06/23/24 Order Info: [id number] - VITD25 Performed By: #### L 506.1000, L501.1400, L500.4100, L501.9910 #### [facility] [address] [place], [address] NETTLE <0.10 Normal Class 0 [facility] Comment on above: Order Comment: Order Date: 06/23/24 Order Info: [id number] - VITD25 Performed By: #### L 506.1000, L501.1400, L500.4100, L501.9910 #### [facility] [address] [place], [address] OAK, WHITE <0.10 Normal Class 0 [facility] Comment on above: Order Comment: Order Date: 06/23/24 Order Info: [id number] - VITD25 Performed By: #### L 506.1000, L501.1400, L500.4100, L501.9910 #### [facility] [address] [place], [address] PEN CHRYSOGEN <0.10 Normal Class 0 [facility] Comment on above: Order Comment: Order Date: 06/23/24 Order Info: [id number] - VITD25 Performed By: #### L 506.1000, L501.1400, L500.4100, L501.9910 #### [facility] [address] [place], [address] PIGWEED, ROUGH <0.10 Normal Class 0 [facility] Comment on above: Order Comment: Order Date: 06/23/24 Order Info: [id number] - VITD25 Performed By: #### L 506.1000, L501.1400, L500.4100, L501.9910 #### [facility] [address] [place], [address] PLANTAIN,ENGLSH <0.10 Normal Class 0 [facility] Comment on above: Order Comment: Order Date: 06/23/24 Order Info: [id number] - VITD25 Performed By: #### L 506.1000, L501.1400, L500.4100, L501.9910 #### [facility] [address] [place], [address] RAGWEED SH/COM <0.10 Normal Class 0 [facility] Comment on above: Order Comment: Order Date: 06/23/24 Order Info: [id number] - VITD25 Performed By: #### L 506.1000, L501.1400, L500.4100, L501.9910 #### [facility] [address] [place], [address] SHEEP SORREL <0.10 Normal Class 0 [facility] Comment on above: Order Comment: Order Date: 06/23/24 Order Info: [id number] - VITD25 Performed By: #### L 506.1000, L501.1400, L500.4100, L501.9910 #### [facility] [address] [place], [address] STEMPHYLIUM HER <0.10 Normal Class 0 [facility] Comment on above: Order Comment: Order Date: 06/23/24 Order Info: [id number] - VITD25 Performed By: #### L 506.1000, L501.1400, L500.4100, L501.9910 #### [facility] [address] [place], [address] SWEET GUM <0.10 Normal Class 0 [facility] Comment on above: Order Comment: Order Date: 06/23/24 Order Info: [id number] - VITD25 Performed By: #### L 506.1000, L501.1400, L500.4100, L501.9910 #### [facility] [address] [place], [address] SYCAMORE, AMER <0.10 Normal Class 0 [facility] Comment on above: Order Comment: Order Date: 06/23/24 Order Info: [id number] - VITD25 Performed By: #### L 506.1000, L501.1400, L500.4100, L501.9910 #### [facility] [address] [place], [address] L5500.0550on 12-25-2024 BEEF <0.10 Normal Class 0 [facility] Comment on above: Order Comment: Test( s) 589733-P434-PaY Cockroach, [place]er; 397643- W373-UqX Greenwood, White; 074938-R491-AoB Sweet Gum were developed and had performance characteristics determined by [facility]. These tests have not been cleared or approved by the U.S. Food and Drug Administration. The FDA has determined that such clearance or approval is not necessary. These tests are used for clinical purposes. These should not be regarded as investigational or for research. Performed By: #### L 5500.0550 #### [facility] [address] [place], [address] CHOCOLATE <0.10 Normal Class 0 [facility] Comment on above: Order Comment: Test( s) 910690-D160-QhT Cockroach, [place]er; 388312- P045-DoX [place], White; 555930-Q609-UiQ Sweet Gum were developed and had performance characteristics determined by [facility]. These tests have not been cleared or approved by the U.S. Food and Drug Administration. The FDA has determined that such clearance or approval is not necessary. These tests are used for clinical purposes. These should not be regarded as investigational or for research. Performed By: #### L 5500.0550 #### [facility] [address] [place], [address] CODFISH <0.10 Normal Class 0 [facility] Comment on above: Order Comment: Test( s) 859892-H642-UzN Cockroach, [place]; 790106- L449-KnO Greenwood, White; 855799-Y668-JsH Sweet Gum were developed and had performance characteristics determined by [facility]. These tests have not been cleared or approved by the U.S. Food and Drug Administration. The FDA has determined that such clearance or approval is not necessary. These tests are used for clinical purposes. These should not be regarded as investigational or for research. Performed By: #### L 5500.0550 #### [facility] [address] [place], [address] COMMENT Comment Normal . [facility] Comment on above: Order Comment: Test( s) 008867-E139-SnS Cockroach, [place]; 262232- G289-UlS Greenwood, White; 332133-X798-TqJ Sweet Gum were developed and had performance characteristics determined by [facility]. These tests have not been cleared or approved by the U.S. Food and Drug Administration. The FDA has determined that such clearance or approval is not necessary. These tests are used for clinical purposes. These should not be regarded as investigational or for research. Result Comment: Bianca sparks of Specific IgE Class Description of Class ----- < 0.10 0 Negative 0.10 - 0.31 0/I Equivocal/Low 0.32 - 0.55 I Low 0.56 - 1.40 II Moderate 1.41 - 3.90 III High 3.91 - 19.00 IV Very High 19.01 - 100.00 V Very High >100.00 Very High Performed By: #### L 5500.0550 #### [facility] [address] [place], [address] CORN <0.10 Normal Class 0 [facility] Comment on above: Order Comment: Test( s) 176461-V565-MbE Cockroach, [place]er; 382053- B408-PfZ Greenwood, White; 889482-F020-CaF Sweet Gum were developed and had performance characteristics determined by [facility]. These tests have not been cleared or approved by the U.S. Food and Drug Administration. The FDA has determined that such clearance or approval is not necessary. These tests are used for clinical purposes. These should not be regarded as investigational or for research. Performed By: #### L 5500.0550 #### [facility] [address] [place], [place], [id number] (405) EGG, WHOLE <0.10 Normal Class 0 [facility] Comment on above: Order Comment: Test( s) 440876-P780-YrO Cockroach, [place]; 049505- J920-EdW [place], White; 237271-F207-RnN Sweet Gum were developed and had performance characteristics determined by [facility]. These tests have not been cleared or approved by the U.S. Food and Drug Administration. The FDA has determined that such clearance or approval is not necessary. These tests are used for clinical purposes. These should not be regarded as investigational or for research. Result Comment: Perf ormed at: - [facility] [address] [id number] Sanforizer: Cat Jean MD, Phone: [phone] Performed By: #### L 5500.0550 #### [facility] [address] [place], [place], [id number] [phone] MILK (COW) <0.10 Normal Class 0 [facility] Comment on above: Order Comment: Test( s) 108380-C889-FeL Cockroach, [place]er; 194422- W026-FyB [place]wood, White; 407730-S831-WaE Sweet Gum were developed and had performance characteristics determined by [facility]. These tests have not been cleared or approved by the U.S. Food and Drug Administration. The FDA has determined that such clearance or approval is not necessary. These tests are used for clinical purposes. These should not be regarded as investigational or for research. Performed By: #### L 5500.0550 #### [facility] [address] [place], [address] (455) MUSSELS <0.10 Normal Class 0 [facility] Comment on above: Order Comment: Test( s) 712676-Q928-BpN Cockroach, [place]er; 036787- C821-ZoR Greenwood, White; 736865-J945-OkB Sweet Gum were developed and had performance characteristics determined by [facility]. These tests have not been cleared or approved by the U.S. Food and Drug Administration. The FDA has determined that such clearance or approval is not necessary. These tests are used for clinical purposes. These should not be regarded as investigational or for research. Performed By: #### L 5500.0550 #### [facility] [address] [place], [address] PEANUT <0.10 Normal Class 0 [facility] Comment on above: Order Comment: Test( s) 495280-T950-YxM Cockroach, [place]; 129187- G712-TqE Greenwood, White; 215387-U900-MsQ Sweet Gum were developed and had performance characteristics determined by [facility]. These tests have not been cleared or approved by the U.S. Food and Drug Administration. The FDA has determined that such clearance or approval is not necessary. These tests are used for clinical purposes. These should not be regarded as investigational or for research. Performed By: #### L 5500.0550 #### [facility] [address] [place], [address] PORK <0.10 Normal Class 0 [facility] Comment on above: Order Comment: Test( s) 268070-R287-NyX Cockroach, [place]; 296193- H377-ZlW Greenwood, White; 905760-A227-McW Sweet Gum were developed and had performance characteristics determined by [facility]. These tests have not been cleared or approved by the U.S. Food and Drug Administration. The FDA has determined that such clearance or approval is not necessary. These tests are used for clinical purposes. These should not be regarded as investigational or for research. Performed By: #### L 5500.0550 #### [facility] [address] [place], [address] SALMON <0.10 Normal Class 0 [facility] Comment on above: Order Comment: Test( s) 251819-G816-RrV Cockroach, [place]; 422512- G725-GoM Greenwood, White; 609975-V244-FaR Sweet Gum were developed and had performance characteristics determined by [facility]. These tests have not been cleared or approved by the U.S. Food and Drug Administration. The FDA has determined that such clearance or approval is not necessary. These tests are used for clinical purposes. These should not be regarded as investigational or for research. Performed By: #### L 5500.0550 #### [facility] [address] [place], [place], [id number] SHRIMP <0.10 Normal Class 0 [facility] Comment on above: Order Comment: Test( s) 365020-Y709-BhM Cockroach, [place]er; 193270- N802-PjL Greenwood, White; 293896-P773-WyQ Sweet Gum were developed and had performance characteristics determined by [facility]. These tests have not been cleared or approved by the U.S. Food and Drug Administration. The FDA has determined that such clearance or approval is not necessary. These tests are used for clinical purposes. These should not be regarded as investigational or for research. Performed By: #### L 5500.0550 #### [facility] [address] [place], [place], [id number] SOYBEAN <0.10 Normal Class 0 [facility] Comment on above: Order Comment: Test( s) 845364-B150-CfZ Cockroach, [place]; 750025- U393-YjJ Greenwood, White; 878766-D045-DnO Sweet Gum were developed and had performance characteristics determined by [facility]. These tests have not been cleared or approved by the U.S. Food and Drug Administration. The FDA has determined that such clearance or approval is not necessary. These tests are used for clinical purposes. These should not be regarded as investigational or for research. Performed By: #### L 5500.0550 #### [facility] [address] [place], [address] TUNA <0.10 Normal Class 0 [facility] Comment on above: Order Comment: Test( s) 279129-Z396-TnV Cockroach, [place]; 118442- Y949-IcP Greenwood, White; 885430-B273-EwZ Sweet Gum were developed and had performance characteristics determined by [facility]. These tests have not been cleared or approved by the U.S. Food and Drug Administration. The FDA has determined that such clearance or approval is not necessary. These tests are used for clinical purposes. These should not be regarded as investigational or for research. Performed By: #### L 5500.0550 #### [facility] [address] [place], [address] WHEAT <0.10 Normal Class 0 [facility] Comment on above: Order Comment: Test( s) 978707-L376-DdL Cockroach, [place]er; 234530- V585-ApP Greenwood, White; 058381-I522-KgQ Sweet Gum were developed and had performance characteristics determined by [facility]. These tests have not been cleared or approved by the U.S. Food and Drug Administration. The FDA has determined that such clearance or approval is not necessary. These tests are used for clinical purposes. These should not be regarded as investigational or for research. Performed By: #### L 5500.0550 #### [facility] [address] [place], [id number] Thyroid Stim Hormone (TSH)on 12-21-2024 TSH 1.060 uIU/mL Normal 0.300-4.200 [facility] Comment on above: Order Comment: Order Date: 06/23/24 Order Info: [id number] - VITD25 Performed By: #### L 506.1000, L501.1400, L500.4100, L501.9910 #### [facility] [address] [place], [place], [id number] A. alternata IgE Qn (S)Order ed By: Ayo Mirza on 12-20-2024 Alternaria alternata IgE Allergen <0.10 kU/L Class 0 [facility] Absolute lymphocyte countOrd ered By: Ayo Mirza on 12-20-2024 Lymphocytes Auto (Unsp spec) [#/Vol] 1.14 10*3/uL 0.83-4.51 [facility] Absolute neutrophil countOrd ered By: Ayo Mirza on 12-20-2024 Neutrophils (Bld) [#/Vol] 2.8 10*3/uL 2.0-7.7 [facility] Hong Konger Cockroach IgE Qn (S )Ordered By: Ayo Mirza on 12-20-2024 [place]er Cockroach Allergen <0.10 kU/L Class 0 [facility] Hong [place]er house dust mite IgE Qn (S)Ordered By: Ayo Mirza on 12-20-2024 Dermatophagoides farinae Allergen <0.10 kU/L Class 0 [facility] Hong [place]er sycamore IgE serumO rdered By: Ayo Mirza on 12-20-2024 Harrells Tree Allergen <0.10 kU/L Class 0 [facility] Aspergillus fumigatus IgE se rumOrdered By: Ayo Mirza on 12-20-2024 Aspergillus fumigatus Allergen <0.10 kU/L Class 0 [facility] Automated lymphocyte count a s percentage of total leukocytesOrdered By: Ayo Mirza on 12-20-2024 Lymphocytes/100 WBC Auto (Unsp spec) 24.6 % 19-41 [facility] Bahia grass IgE Qn (S)Ordere d By: Ayo Mirza on 12-20-2024 Bahia Grass Allergen <0.10 kU/L Class 0 [facility] Basophil percentageOrdered B y: Ayo Mirza on 12-20-2024 Basophils/100 WBC (Bld) 0.9 % 0-1 [facility] Beef IgE Qn (S)Ordered By: Chinedu Mirza on 12-20-2024 Beef Allergen (RAST) <0.10 kU/L Class 0 [facility] Bermuda grass IgE Qn (S)Orde red By: Ayo Mirza on 12-20-2024 Bermuda Grass Allergen <0.10 kU/L Class 0 [facility] C. herbarum IgE Qn (S)Ordere d By: Ayo Mirza on 12-20-2024 Cladosporium herbarum Allergen <0.10 kU/L Class 0 [facility] CBC W/Diff, Automatedon 11-27 Absolute Lymph 1.14 X10 3/uL Normal 0.83-4.51 [facility] Comment on above: Order Comment: Order Date: 06/23/24 Order Info: [id number] - VITD25 Performed By: #### L 506.1000, L501.1400, L500.4100, L501.9910 #### [facility] [address] [place], [address] Absolute Neut 2.8 X10 3/uL Normal 2.0-7.7 [facility] Comment on above: Order Comment: Order Date: 06/23/24 Order Info: [id number] - VITD25 Performed By: #### L 506.1000, L501.1400, L500.4100, L501.9910 #### [facility] [address] [place], [address] Basophils/100 WBC (Bld) 0.9 % Normal 0-1 [facility] Comment on above: Order Comment: Order Date: 06/23/24 Order Info: [id number] - VITD25 Performed By: #### L 506.1000, L501.1400, L500.4100, L501.9910 #### [facility] [address] [place], [address] Eosinophils/100 WBC (Bld) 4.1 % Normal 0-5 [facility] Comment on above: Order Comment: Order Date: 06/23/24 Order Info: [id number] - VITD25 Performed By: #### L 506.1000, L501.1400, L500.4100, L501.9910 #### [facility] [address] [place], [address] Erythrocyte distribution width (RBC) [Ratio] 13.5 % Normal 11.6-14.6 [facility] Comment on above: Order Comment: Order Date: 06/23/24 Order Info: [id number] - VITD25 Performed By: #### L 506.1000, L501.1400, L500.4100, L501.9910 #### [facility] [address] [place], [address] Hematocrit (Bld) [Volume fraction] 47.5 % Normal 40-54 [facility] Comment on above: Order Comment: Order Date: 06/23/24 Order Info: [id number] - VITD25 Performed By: #### L 506.1000, L501.1400, L500.4100, L501.9910 #### [facility] [address] [place], [address] Hemoglobin (Bld) [Mass/Vol] 15.8 g/dL Normal 13.0-16.5 [facility] Comment on above: Order Comment: Order Date: 06/23/24 Order Info: [id number] - VITD25 Performed By: #### L 506.1000, L501.1400, L500.4100, L501.9910 #### [facility] [address] [place], [address] IG% 0.200 Normal 0.0-0.9 [facility] Comment on above: Order Comment: Order Date: 06/23/24 Order Info: [id number] - VITD25 Result Comment: IG% - Immature Granulocytes (promyelocytes, myelocytes and metamyelocytes) > 1% indicates that a LEFT SHIFT is Present. Performed By: #### L 506.1000, L501.1400, L500.4100, L501.9910 #### [facility] [address] [place], [address] Lymphocytes/100 WBC (Bld) 24.6 % Normal 19-41 [facility] Comment on above: Order Comment: Order Date: 06/23/24 Order Info: [id number] - VITD25 Performed By: #### L 506.1000, L501.1400, L500.4100, L501.9910 #### [facility] [address] [place], [address] MCH (RBC) [Entitic mass] 31.2 pg Normal 27.0-32.0 [facility] Comment on above: Order Comment: Order Date: 06/23/24 Order Info: [id number] - VITD25 Performed By: #### L 506.1000, L501.1400, L500.4100, L501.9910 #### [facility] [address] [place], [address] MCHC (RBC) [Mass/Vol] 33.3 g/dL Normal 32-36 [facility] Comment on above: Order Comment: Order Date: 06/23/24 Order Info: [id number] - VITD25 Performed By: #### L 506.1000, L501.1400, L500.4100, L501.9910 #### [facility] [address] [place], [address] MCV (RBC) [Entitic vol] 93.7 fL Normal 80-94 [facility] Comment on above: Order Comment: Order Date: 06/23/24 Order Info: [id number] - VITD25 Performed By: #### L 506.1000, L501.1400, L500.4100, L501.9910 #### [facility] [address] [place], [address] Monocytes/100 WBC (Bld) 10.1 % High 0-10 [facility] Comment on above: Order Comment: Order Date: 06/23/24 Order Info: [id number] - VITD25 Performed By: #### L 506.1000, L501.1400, L500.4100, L501.9910 #### [facility] [address] [place], [address] Neutrophils/100 WBC (Bld) 60.1 % Normal 47-70 [facility] Comment on above: Order Comment: Order Date: 06/23/24 Order Info: [id number] - VITD25 Performed By: #### L 506.1000, L501.1400, L500.4100, L501.9910 #### [facility] [address] [place], [address] Nucleated RBC (Bld) [#/Vol] 0 10*3/uL Normal 0-5 [facility] Comment on above: Order Comment: Order Date: 06/23/24 Order Info: [id number] - VITD25 Performed By: #### L 506.1000, L501.1400, L500.4100, L501.9910 #### [facility] [address] [place], [address] Platelet mean volume (Bld) [Entitic vol] 10.5 fL Normal 6.2-12.0 [facility] Comment on above: Order Comment: Order Date: 06/23/24 Order Info: [id number] - VITD25 Performed By: #### L 506.1000, L501.1400, L500.4100, L501.9910 #### [facility] [address] [place], [address] Platelets (Bld) [#/Vol] 205 10*3/uL Normal 150-450 [facility] Comment on above: Order Comment: Order Date: 06/23/24 Order Info: [id number] - VITD25 Performed By: #### L 506.1000, L501.1400, L500.4100, L501.9910 #### [facility] [address] [place], [address] RBC (Bld) [#/Vol] 5.07 10*6/uL Normal 4.6-6.2 [facility] Comment on above: Order Comment: Order Date: 06/23/24 Order Info: [id number] - VITD25 Performed By: #### L 506.1000, L501.1400, L500.4100, L501.9910 #### [facility] [address] [place], [address] RDW SD 46.5 fl High 35.1-43.9 [facility] Comment on above: Order Comment: Order Date: 06/23/24 Order Info: [id number] - VITD25 Performed By: #### L 506.1000, L501.1400, L500.4100, L501.9910 #### [facility] [address] [place], [address] WBC (Bld) [#/Vol] 4.6 10*3/uL Normal 4.4-11.0 [facility] Comment on above: Order Comment: Order Date: 06/23/24 Order Info: [id number] - VITD25 Performed By: #### L 506.1000, L501.1400, L500.4100, L501.9910 #### [facility] [address] [place], [address] Cat dander IgE Qn (S)Ordered By: Ayo Mirza on 12-20-2024 Cat Dander IgE Allergen <0.10 kU/L Class 0 [facility] Chocolate IgE Qn (S)Ordered By: Ayo Mirza on 12-20-2024 Chocolate Allergen (RAST) <0.10 kU/L Class 0 [facility] Codfish IgE Qn (S)Ordered By : Ayo Mirza on 12-20-2024 Codfish Allergen (RAST) <0.10 kU/L Class 0 [facility] [place] IgE Qn (S)Ordered By: C alisia Mirza on 12-20-2024 [place] Allergen (RAST) <0.10 kU/L Class 0 [facility] Cow milk IgE Qn (S)Ordered B y: Ayo Mirza on 12-20-2024 Cow's Milk Allergen <0.10 kU/L Class 0 [facility] Dog epithelium IgE Qn (S)Ord ered By: Ayo Mirza on 02-25-2025 Dog Epithelia Allergen <0.10 kU/L Class 0 [facility] Eosinophil percentageOrdered By: Ayo Mirza on 12-20-2024 Eosinophils/100 WBC (Bld) 4.1 % 0-5 [facility] Erythrocyte Sed Rateon 12-20 SED RATE 14 mm/hr Normal 0-20 [facility] Comment on above: Order Comment: Order Date: 12/20/24 Order Info: [id number] - CBCD Order Info: [id number] - SED Performed By: #### L 5500.0600, L101.9900, L501.9520, L100.0100 #### [facility] [address] [place], [place], [id number] Erythrocyte distribution wid th ratioOrdered By: Ayo Mirza on 12-20-2024 Erythrocyte distribution width (RBC) [Ratio] 13.5 % 11.6-14.6 [facility] Erythrocyte distribution wid th standard deviationOrdered By: Ayo Mirza on 12-20-2024 Erythrocyte distribution width (RBC) [Entitic vol] 46.5 fL High 35.1-43.9 [facility] Erythrocyte distribution width (RBC) [Ratio] 46.5 fl High 35.1-43.9 [facility] Erythrocyte sedimentation ra teOrdered By: Ayo Mirza on 12-20-2024 ESR (Bld) [Velocity] 14 mm/h 0-20 [facility] house dust mite IgE Qn (S)Ordered By: Ayo Mirza on 12-20-2024 Dermatophagoides pteronyss Allergen <0.10 kU/L Class 0 [facility] Hazelnut Pollen IgE Qn (S)Or dered By: Ayo Mirza on 12-20-2024 Hazelnut Tree Allergen <0.10 kU/L Class 0 [facility] Hematocrit Auto (Bld) [Volum e fraction]Ordered By: Ayo Mirza on 12-20-2024 Hematocrit (Bld) [Volume fraction] 47.5 % 40-54 [facility] Hemoglobin measurementOrdere d By: Ayo Mirza on 12-20-2024 Hemoglobin (Bld) [Mass/Vol] 15.8 g/dL 13.0-16.5 [facility] Immature granulocytes/100 WB C Auto (Bld)Ordered By: Ayo iMrza on 12-20-2024 Immature granulocytes/100 WBC (Bld) 0.200 % 0.0-0.9 [facility] Comment on above: IG% - Immature Granu locytes (promyelocytes, myelocytes and metamyelocytes) > 1% indicates that a LEFT SHIFT is Present. Mary grass IgE Qn (S)Orde red By: Ayo Mirza on 12-20-2024 Mary Grass Allergen (RAST) <0.10 kU/L Class 0 [facility] blue grass IgE Qn ( S)Ordered By: Ayo Mirza on 12-20-2024 [facility] ([facility]) Grass IgE Ab <0.10 kU/L Class 0 [facility] Laboratory - Miscellaneous t estsOrdered By: Ayo Mirza on 12-20-2024 Service comment (Unsp spec) [Interp] Comment . [facility] Comment on above: Levels of Specific I gE Class Description of Class ----- < 0.10 0 Negative 0.10 - 0.31 0/I Equivocal/Low 0.32 - 0.55 I Low 0.56 - 1.40 II Moderate 1.41 - 3.90 III High 3.91 - 19.00 IV Very High 19.01 - 100.00 V Very High >100.00 Very High Lymphocytes Auto (Unsp spec) [#/Vol]Ordered By: Ayo Mirza on 12-20-2024 Lymphocytes (Bld) [#/Vol] 1.14 10*3/uL 0.83-4.51 [facility] Lymphocytes/100 WBC Auto (Un sp spec)Ordered By: Ayo Mirza on 12-20-2024 Lymphocytes/100 WBC (Bld) 24.6 % 19-41 [facility] MCV (mean corpuscular volume ) determinationOrdered By: Ayo Mirza on 12-20-2024 MCV (RBC) [Entitic vol] 93.7 fL 80-94 [facility] Mean corpuscular hemoglobin (MCH) determinationOrdered By: Ayo Mirza on 12-20-2024 MCH (RBC) [Entitic mass] 31.2 pg 27.0-32.0 [facility] Mean corpuscular hemoglobin concentration (MCHC) determinationOrdered By: Ayo Mirza on 12-20-2024 MCHC (RBC) [Mass/Vol] 33.3 g/dL 32-36 [facility] Mean platelet volume determi nationOrdered By: Ayo Mirza on 12-20-2024 Platelet mean volume (Bld) [Entitic vol] 10.5 fL 6.2-12.0 [facility] Monocyte percentageOrdered B y: Ayo Mirza on 12-20-2024 Monocytes/100 WBC (Bld) 10.1 % High 0-10 [facility] Mountain Juniper IgE Qn (S)O rdered By: Ayo Mirza on 12-20-2024 Mountain [place] Tree Allergen <0.10 kU/L Class 0 [facility] Mucor racemosus IgE Qn (S)Or dered By: Ayo Mirza on 12-20-2024 Mucor racemosus Allergen <0.10 kU/L Class 0 [facility] Mugwort IgE Qn (S)Ordered By : Ayo Mirza on 12-20-2024 Mugwort Allergen <0.10 kU/L Class 0 [facility] Nettle IgE Qn (S)Ordered By: Ayo Mirza on 12-20-2024 Nettle Allergen <0.10 kU/L Class 0 [facility] Neutrophil percentageOrdered By: Ayo Mirza on 12-20-2024 Neutrophils/100 WBC (Bld) 60.1 % 47-70 [facility] Nucleated red blood cell per centageOrdered By: Ayo Mirza on 12-20-2024 Nucleated RBC/100 WBC (Bld) [Ratio] 0 % 0-5 [facility] P. notatum IgE Qn (S)Ordered By: Ayo Mirza on 12-20-2024 Penicillium chrysogen/notatum IgE <0.10 kU/L Class 0 [facility] Peanut IgE Qn (S)Ordered By: Ayo Mirza on 12-20-2024 Peanut Allergen (RAST) <0.10 kU/L Class 0 [facility] Platelet countOrdered By: Dean Mirza on 12-20-2024 Platelets (Bld) [#/Vol] 205 10*3/uL 150-450 [facility] Pork IgE Qn (S)Ordered By: Chinedu Mirza on 12-20-2024 Pork Allergen (RAST) <0.10 kU/L Class 0 [facility] RBC Auto (Bld) [#/Vol]Ordere d By: Ayo Mirza on 12-20-2024 RBC (Bld) [#/Vol] 5.07 10*6/uL 4.6-6.2 [facility] Rough Pigweed IgE Qn (S)Orde red By: Ayo Mirza on 12-20-2024 Rough Pigweed Allergen <0.10 kU/L Class 0 [facility] [place] IgE Qn (S)Ordered By: Ayo Mirza on 12-20-2024 [place] Allergen IgE Antibody <0.10 kU/L Class 0 [facility] Serum Acer negundo specific IgE antibody assayOrdered By: Ayo Mirza on 12-20-2024 Maple (May) Allergen IgE Ab <0.10 kU/L Class 0 [facility] Serum Bermuda grass IgE anti body assay (units/volume)Ordered By: Ayo Mirza on 12-20-2024 Bermuda grass IgE Qn (S) <0.10 kU/L Class 0 [facility] Serum Cladosporium herbarum IgE antibody assay (units/volume)Ordered By: Ayo Mirza on 12-20-2024 C. herbarum IgE Qn (S) <0.10 kU/L Class 0 [facility] Serum Turkish plantain speci fic IgE antibody assayOrdered By: Ayo Mirza on 12-20-2024 Turkish Plantain Allergen (RAST) <0.10 kU/L Class 0 [facility] Serum house dust mi te IgE antibody assay (units/volume)Ordered By: Ayo Mirza on 12-20-2024 house dust mite IgE Qn (S) <0.10 kU/L Class 0 [facility] Serum Mary grass IgE anti body assay (units/volume)Ordered By: Ayo Mirza on 12-20-2024 Mary grass IgE Qn (S) <0.10 kU/L Class 0 [facility] Serum [place] blue grass Ig E antibody assay (units/volume)Ordered By: Ayo Mirza on 12-20-2024 [place] blue grass IgE Qn (S) <0.10 kU/L Class 0 [facility] Serum Morus alba IgE antibod y assay (units/volume)Ordered By: Ayo Mirza on 12-20-2024 White mulberry IgE Qn (S) <0.10 kU/L Class 0 [facility] Serum Urtica dioica IgE anti body assay (units/volume)Ordered By: Ayo Mirza on 12-20-2024 Nettle IgE Qn (S) <0.10 kU/L Class 0 [facility] Serum bahia grass IgE antibo dy assay (units/volume)Ordered By: Ayo Mirza on 12-20-2024 Bahia grass IgE Qn (S) <0.10 kU/L Class 0 [facility] Serum beef IgE antibody assa y (units/volume)Ordered By: Ayo Mirza on 12-20-2024 Beef IgE Qn (S) <0.10 kU/L Class 0 [facility] Serum cat dander IgE antibod y assay (units/volume)Ordered By: Ayo Mirza on 12-20-2024 Cat dander IgE Qn (S) <0.10 kU/L Class 0 [facility] Serum codfish IgE antibody a ssay (units/volume)Ordered By: Ayo Mirza on 12-20-2024 Codfish IgE Qn (S) <0.10 kU/L Class 0 [facility] Serum common/short ragweed s pecific IgE antibody assayOrdered By: Ayo Mirza on 12-20-2024 Common Ragweed (Short) Allergen <0.10 kU/L Class 0 [facility] Serum corn IgE antibody assa y (units/volume)Ordered By: Ayo Mirza on 12-20-2024 [place] IgE Qn (S) <0.10 kU/L Class 0 [facility] Serum cow milk IgE antibody assay (units/volume)Ordered By: Ayo Mirza on 12-20-2024 Cow milk IgE Qn (S) <0.10 kU/L Class [address] [facility] er [facility] Serum dog epithelium IgE ant ibody assay (units/volume)Ordered By: Ayo Mirza on 12-20-2024 Dog epithelium IgE Qn (S) <0.10 kU/L Class 0 [facility] Serum hazelnut pollen IgE an tibody assay (units/volume)Ordered By: Ayo Mirza on 12-20-2024 Hazelnut Pollen IgE Qn (S) <0.10 kU/L Class 0 [facility] Serum mountain cedar specifi c IgE antibody assayOrdered By: Ayo Mirza on 12-20-2024 Mountain Juniper IgE Qn (S) <0.10 kU/L Class 0 [facility] Serum mugwort IgE antibody a ssay (units/volume)Ordered By: Ayo Mirza on 12-20-2024 Mugwort IgE Qn (S) <0.10 kU/L Class 0 [facility] Serum mussel specific IgE an tibody assayOrdered By: Ayo Mirza on 12-20-2024 Mussel Allergen IgE Antibody <0.10 kU/L Class 0 [facility] Serum peanut IgE antibody as say (units/volume)Ordered By: Ayo Mirza on 12-20-2024 Peanut IgE Qn (S) <0.10 kU/L Class 0 [facility] Serum pork IgE antibody assa y (units/volume)Ordered By: Ayo Mirza on 12-20-2024 Pork IgE Qn (S) <0.10 kU/L Class 0 [facility] Serum salmon IgE antibody as say (units/volume)Ordered By: Ayo Mirza on 12-20-2024 [place] IgE Qn (S) <0.10 kU/L Class 0 [facility] Serum sheep sorrel IgE antib kenia assay (units/volume)Ordered By: Ayo Mirza on 12-20-2024 Sheep [place] IgE Qn (S) <0.10 kU/L Class 0 [facility] Serum shrimp specific IgE an tibody assayOrdered By: Ayo Mirza on 12-20-2024 Shrimp Allergen <0.10 kU/L Class 0 [facility] Serum soybean IgE antibody a ssay (units/volume)Ordered By: Ayo Mirza on 12-20-2024 Soybean IgE Qn (S) <0.10 kU/L Class 0 [facility] Serum sweet gum IgE radioall ergosorbent test (RAST) class determinationOrdered By: Ayo Mirza on 12-20-2024 Sweet Gum Tree Allergen <0.10 kU/L Class 0 [facility] Serum tuna IgE antibody assa y (units/volume)Ordered By: Ayo Mirza on 12-20-2024 Tuna IgE Qn (S) <0.10 kU/L Class 0 [facility] Serum wheat IgE antibody ass ay (units/volume)Ordered By: Ayo Mirza on 12-20-2024 Wheat IgE Qn (S) <0.10 kU/L Class 0 [facility] Serum white elm IgE antibody assay (units/volume)Ordered By: Ayo Mirza on 12-20-2024 White Elm IgE Qn (S) <0.10 kU/L Class 0 [facility] Serum white oak IgE antibody assay (units/volume)Ordered By: Ayo Mirza on 12-20-2024 [place] IgE Qn (S) <0.10 kU/L Class 0 [facility] Serum whole egg IgE antibody assay (units/volume)Ordered By: Ayo Mirza on 12-20-2024 Whole Egg IgE Qn (S) <0.10 kU/L Class 0 [facility] Comment on above: Performed at: [address] [id number] Director: Cat Jean MD, Phone: [phone] Service comment (Unsp spec) [Interp]Ordered By: Ayo Mirza on 12-20-2024 RAST Comment Comment . [facility] Comment on above: Levels of Specific I gE Class Description of Class ----- < 0.10 0 Negative 0.10 - 0.31 0/I Equivocal/Low 0.32 - 0.55 I Low 0.56 - 1.40 II Moderate 1.41 - 3.90 III High 3.91 - 19.00 IV Very High 19.01 - 100.00 V Very High >100.00 Very High Sheep [place] IgE Qn (S)Order ed By: Ayo Mirza on 12-20-2024 Sheep [place] Allergen <0.10 kU/L Class 0 [facility] Soybean IgE Qn (S)Ordered By : Ayo Mirza on 12-20-2024 Soybean Allergen (RAST) <0.10 kU/L Class 0 [facility] Stemphylium botryosum IgE Qn (S)Ordered By: Ayo Mirza on 12-20-2024 Stemphylium herbarum Allergen IgE <0.10 kU/L Class 0 [facility] Stemphylium herbarum IgE ser umOrdered By: Ayo Mirza on 12-20-2024 Stemphylium botryosum IgE Qn (S) <0.10 kU/L Class 0 [facility] TSH DL <= 0.005 mIU/L QnOrde red By: Ayo Mirza on 12-20-2024 Thyroid Stimulating Hormone (TSH) 1.060 uIU/mL 0.300-4.200 [facility] TSH Qn 1.060 uIU/mL 0.300-4.200 [facility] Tuna IgE Qn (S)Ordered By: Chinedu Mirza on 12-20-2024 Tuna Allergen (RAST) <0.10 kU/L Class 0 [facility] Wheat IgE Qn (S)Ordered By: Ayo Mirza on 12-20-2024 Wheat Allergen (RAST) <0.10 kU/L Class 0 [facility] White Elm IgE Qn (S)Ordered By: Ayo Mirza on 12-20-2024 White Elm Allergen <0.10 kU/L Class 0 [facility] White [place] IgE Qn (S)Orde red By: Ayo Mirza on 12-20-2024 [place] Tree Allergen <0.10 kU/L Class 0 [facility] [place] IgE Qn (S)Ordered By: Ayo Mirza on 12-20-2024 [place] Tree Allergen <0.10 kU/L Class 0 [facility] White blood cell (WBC) count Ordered By: Ayo Mirza on 12-20-2024 WBC (Bld) [#/Vol] 4.6 10*3/uL 4.4-11.0 [facility] White hickory IgE serumOrder ed By: Ayo Mirza on 12-20-2024 White [place] IgE Qn (S) <0.10 kU/L Class 0 [facility] White mulberry IgE Qn (S)Ord ered By: Ayo Mirza on 12-20-2024 [place] Tree Allergen <0.10 kU/L Class 0 [facility] Whole Egg IgE Qn (S)Ordered By: Ayo Mirza on 12-20-2024 Egg Whole Allergen <0.10 kU/L Class 0 [facility] Comment on above: Performed at: [address] [id number] Director: Cat Jean MD, Phone: [phone] Lipid Profileon 06-23-2024 Cholesterol [Mass/Vol] 226 mg/dL High 200 [facility] Comment on above: Order Comment: Order Date: 06/23/24 Order Info: [id number] - LIPID Order Info: [id number] - URIC Order Info: [id number] - PSA Result Comment: <200 mg/dL Desirable 200-240 mg/dL Borderline >240 mg/dL High Risk Performed By: #### L 506.1000, L501.1400, L500.4100, L501.9910 #### [facility] [address] [place], [place], [id number] Cholesterol in HDL [Mass/Vol] 53 mg/dL Normal [facility] Comment on above: Order Comment: Order Date: 06/23/24 Order Info: - LIPID Order Info: [id number] - URIC Order Info: [id number] - PSA Result Comment: The drugs N-Acetylcysteine and Metamizole may falsely depress this assay. Reference Range HDL <40 mg/dL Low HDL Cholesterol HDL >or= 60 mg/dL High HDL Cholesterol Performed By: #### L 506.1000, L501.1400, L500.4100, L501.9910 #### [facility] [address] [place], [address] Cholesterol in LDL [Mass/Vol] 123 mg/dL Normal 0-130 [facility] Comment on above: Order Comment: Order Date: 06/23/24 Order Info: - LIPID Order Info: [id number] - URIC Order Info: [id number] - PSA Performed By: #### L 506.1000, L501.1400, L500.4100, L501.9910 #### [facility] [address] [facility] [place], [address] Cholesterol in VLDL [Mass/Vol] 50 mg/dL High 5-40 [facility] Comment on above: Order Comment: Order Date: 06/23/24 Order Info: - LIPID Order Info: [id number] - URIC Order Info: [id number] - PSA Performed By: #### L 506.1000, L501.1400, L500.4100, L501.9910 #### [facility] [address] [place], [address] Triglyceride [Mass/Vol] 249 mg/dL High [facility] Comment on above: Order Comment: Order Date: 06/23/24 Order Info: - LIPID Order Info: [id number] - URIC Order Info: [id number] - PSA Result Comment: The drugs N-Acetylcysteine and Metamizole may falsely depress this assay. Serum Triglycerides Reference Interval Normal <150 mg/dL Borderline high 150 - 199 mg/dL High 200 - 499 mg/dL Very High > or = 500 mg/dL Performed By: #### L 506.1000, L501.1400, L500.4100, L501.9910 #### [facility] [address] [place], [address] PSA,Total - Annual Screenon 06-23-2024 PSA,TOT SCREEN 1.50 ng/mL Normal 0.00-4.00 [facility] Comment on above: Order Comment: Order Date: 06/23/24 Order Info: [id number] - LIPID Order Info: [id number] - URIC Order Info: [id number] - PSA Result Comment: This test was performed using the TPSA assay method for the [employer] chemistry system. Values obtained with different assay methods cannot be used interchangably. When changing PSA assays in the course of monitoring a patient, additional sequential testing should be carried out to confirm baseline values. Performed By: #### L 506.1000, L501.1400, L500.4100, L501.9910 #### [facility] [address] [place], [address] Uric Acidon 06-23-2024 URIC 5.4 mg/dL Normal 3.5-7.2 [facility] Comment on above: Order Comment: Order Date: 06/23/24 Order Info: [id number] - LIPID Order Info: [id number] - URIC Order Info: [id number] - PSA Result Comment: The drugs N-Acetylcysteine and Metamizole may falsely depress this assay. Performed By: #### L 506.1000, L501.1400, L500.4100, L501.9910 #### [facility] [address] [place], [address] Vitamin D,25 Hydroxyon 06-23 Vitamin D 25-OH 25.1 ng/mL Normal [facility] Comment on above: Order Comment: Order Date: 06/23/24 Order Info: [id number] - VITD25 Result Comment: Rosi min D 25(OH) Status Range Deficiency <20 ng/mL (50nmol/L) Insufficiency 20 - 30 ng/mL (50 - 75 nmol/L) Sufficiency 30 - 100 ng/mL (75 - 250 nmol/L) Toxicity >100 ng/mL (>250 nmol/L) Performed By: #### L 506.1000, L501.1400, L500.4100, L501.9910 #### [facility] [place], [address] CNOVon 08-14-2023 CNOV Office Visit (GENSWS ) HUBERT BURRIS ([id number]) 1965 M Date Time Provider Department 08/14/23 9:00 AM GRISEL FLORENCE During your visit today, we recorded the following information about you: Temperature Pulse Blood pressure Weight 97.5 degrees 80/minute 140/82 113.8 kg Grisel Florence PA-C 08/19/2023 11:52 AM Signed FOLLOW UP VISIT - ENDOSCOPY NAME: Hubert Olmdeo Fatuma CLINIC NO.: [id number] DATE OF SERVICE: 08/14/2023 : 1965 REFERRING PHYSICIAN: Ayo Mirza MD Hubert is a patient I am following for history of colon polyps and need for surveillance colonoscopy. Dr. Gallo performed lower endoscopy on 08/07/23. The patient was found to have hemorrhoids, as well as a small sigmoid colon which was removed. Pathology demonstrated: FINAL DIAGNOSIS Sigmoid, polypectomy: -Tubular adenoma The patient notes no complaints since the procedure. VITALS: Blood pressure 140/82, pulse 80, temperature 36.4 ?C (97.5 ?F), weight 113.8 kg (250 lb 12.8 oz), SpO2 97 %. General: patient is alert, cooperative, pleasant and in no acute distress On examination, the abdomen is benign. Assessment IMPRESSION: s/p colonoscopy with polypectomy PLAN: The operative findings and pathology report were reviewed with the patient, and the patient has had the opportunity to ask questions and have questions answered. If the patient notes any problems or changes in bowel function, the patient should contact me immediately. Otherwise I recommend follow up endoscopy in 5 years Patient verbalized understanding of all above and agreed with the plan Diagnoses: (Z86.010) History of colonic polyps (primary encounter diagnosis) (D36.9) Tubular adenoma I spent a total of 23 minutes on the date of the service which included preparing to see the patient, [id number] patient care, completing clinical documentation, obtaining and/or reviewing separately obtained history, counseling and educating the patient/family/caregi martín, independently interpreting results (not separately reported), and communicating results to the patient/family/caregi martín. BRITNEY Yepez Amanda, PA-C 08/14/2023 9:24 AM Signed The following instructions are important for you related to your office visit today with the [facility] General Surgeons. INSTRUCTIONS FOLLOWING A POLYP FOUND AT COLONOSCOPY You were found to have an adenomatous colon polyp. I recommend you undergo repeat endoscopy in 5 years. If you note bleeding, change in bowel habits, or other suspicious colon related symptoms before that time, those symptoms should be evaluated as necessary. If you have any difficulties or concerns, you should contact our office immediately. If you note any additional difficulties, questions, or concerns, you should contact our office immediately @ [phone] and ask to be transferred to the General Surgery department. Referring Provider: NEEMA GALLO [[id number]] Allergies As of Date: 08/14/2023 Noted Allergy Reaction CHANTIX (VARENICLINE) 06/23/2023 6 - Diarrhea Comments: Headache, fatigue LEXAPRO (ESCITALOPRAM) 06/23/2023 14 - Other: See Comments Comments: Dizziness and hot flashes SYMBICORT (BUDESONIDE-FORMOTERO L) 06/23/2023 2 - Rash Date Reviewed: 08/14/2023 Reviewed by: Grisel Florence PA-C - Fully Assessed Reason for Visit: Follow Up [171] Cmt: Review colonoscopy results. Primary Visit Diagnosis:History of colonic polyps [Z86.010] Other Visit Diagnosis:Tubular adenoma [D36.9] Prescriptions as of 08/19/2023 - allopurinol (ZYLOPRIM) 100 mg tablet Take 200 mg by mouth once daily. - LORazepam (ATIVAN) 1 mg tablet Take 1 mg by mouth three times daily. Meds Comments as of 05/31/2018: No Rx routine otc or supplemment Problem List As Of Date 08/14/2023 Noted Resolved History of hypertension [Z86.79] 09/26/2005 Hyperlipidemia [E78.5] 09/26/2005 Dysmetabolic syndrome X [E88.810] 09/26/2005 Finger pain [M79.646] 05/24/2012 History of colonic polyps [Z86.010] 08/07/2023 Other instructions from your clinician: The following instructions are important for you related to your office visit today with the [facility] Surgeons. INSTRUCTIONS FOLLOWING A POLYP FOUND AT COLONOSCOPY You were found to have an adenomatous colon polyp. I recommend you undergo repeat endoscopy in 5 years. If you note bleeding, change in bowel habits, or other suspicious colon related symptoms before that time, those symptoms should be evaluated as necessary. If you have any difficulties or concerns, you should contact our office immediately. If you note any additional difficulties, questions, or concerns, you should contact our office immediately @ [phone] and ask to be transferred to the General Surgery department. Medications Discontinued During This Encou (more content not included)... Normal [facility] SURGICAL PATHOLOGYon 023 Case Report Surgical Pathology Report Case: [id number] Authorizing Provider: Neema Gallo MD Collected: 08/07/2023 10:38 AM Ordering Location: Ambulatory Surgery Received: 08/07/2023 02:25 PM Pathologist: Allie Zepeda MD Specimen: SIGMOID COLON POLYP [facility] FINAL DIAGNOSIS Sigmoid, polypectomy : -Tubular adenoma [facility] Gross Description A. SIGMOID COLON POLYP Received in formalin is one piece of dsouza, soft tissue measuring 0.3 x 0.2 x 0.2 cm. Totally submitted in one cassette. Gross examination performed at [facility], [address] [place] [id number] August 08, 2023 12:05 AM [facility] Performing Lab Diagnostic interpretation performed at [facility], [address] [place] [id number] CLIA# [id number] Online Communications Specialist: Iván Quinones M.D. [facility] COLONOSCOPY SCREENINGon 07-26 [facility] Colonoscopyon 08-07-2023 Colonoscopy [facility] Gastrointestinal Endoscopy Patient Name: Hubert Burris Procedure Date: 08/07/2023 10:16 AM Date of : 1965 Admit Type: Outpatient Age: 58 Gender: Male Note Status: Finalized Procedure: Colonoscopy Indications: High risk colon cancer surveillance: Personal history of colonic polyps Providers: Neema Gallo MD Patient Profile: Refer to note in patient chart for documentation of history and physical. First Colonoscopy: 2018. Last Colonoscopy: 2018. Referring Physician: Grisel Florence (pa) (Referring MD), Ayo Mirza MD (Referring MD) Medicines: Midazolam 5 mg IV, Fentanyl 100 micrograms IV, Diphenhydramine 50 mg IV Complications: No immediate complications. Requesting Provider: Procedure: Pre-Anesthesia Assessment: - Prior to the procedure, a History and Physical was performed, and patient medications and allergies were reviewed. The patient is competent. The risks and benefits of the procedure and the sedation options and risks were discussed with the patient. All questions were answered and informed consent was obtained. Patient identification and proposed procedure were verified by the physician in the pre-procedure area. Mental Status Examination: alert and oriented. Airway Examination: normal oropharyngeal airway and neck mobility. Respiratory Examination: clear to auscultation. CV Examination: normal. Prophylactic Antibiotics: The patient does not require prophylactic antibiotics. Prior Anticoagulants: The patient has taken no anticoagulant or antiplatelet agents. ASA Grade Assessment: II - A patient with mild systemic disease. After reviewing the risks and benefits, the patient was deemed in satisfactory condition to undergo the procedure. The anesthesia plan was to use moderate sedation / analgesia (conscious sedation). Immediately prior to administration of medications, the patient was re-assessed for adequacy to receive sedatives. The heart rate, respiratory rate, oxygen saturations, blood pressure, adequacy of pulmonary ventilation, and response to care were monitored throughout the procedure. The physical status of the patient was re-assessed after the procedure. After I obtained informed consent, the scope was passed under direct vision. Throughout the procedure, the patient's blood pressure, pulse, and oxygen saturations were monitored continuously. The Colonoscope was introduced through the anus and advanced to the cecum, identified by the appendiceal orifice, ileocecal valve and palpation. The colonoscopy was performed without difficulty. The patient tolerated the procedure well. The quality of the bowel preparation was adequate. The appendiceal orifice and the rectum were photographed. Moderate Sedation: The administration of moderate sedation was initiated at 10:22 AM. Moderate (conscious) sedation was personally administered by the endoscopist. The following parameters were monitored: oxygen saturation, heart rate, blood pressure, respiratory rate, EKG, adequacy of pulmonary ventilation, and response to care. Total physician intraservice time was 20 minutes. Findings: The perianal and digital rectal examinations were normal. Non-bleeding internal hemorrhoids were found. A 2 to 4 mm polyp was found in the sigmoid colon. The polyp was sessile. The polyp was removed with a cold snare. Resection and retrieval were complete. Verification of patient identification for the specimen was done by the nurse. Estimated blood loss was minimal. Impression: - Non-bleeding internal hemorrhoids. - One 2 to 4 mm polyp in the sigmoid colon, removed with a cold snare. Resected and retrieved. Recommendation: - Repeat colonoscopy date to be determined after pending pathology results are reviewed for surveillance. - Follow up with Grisel Florence PA-C via televisit for discussion of pathology results and determination of timing of future endoscopies - Patient has a contact number available for emergencies. The signs and symptoms of potential delayed complications were discussed with the patient. Return to normal activities tomorrow. Written discharge instructions were provided to the patient. - Continue present medications. - Resume previous diet. Procedure Code(s): --- Professional --- 29300, Colonoscopy, flexible; with removal of tumor(s), polyp(s), or other lesion(s) by snare technique 87707, 59, Moderate sedation services provided by the same physician or other qualified health patient care technician performing the diagnostic or therapeutic service that the sedation supports, requiring the presence of an independent trained observer to assist in the monitoring of the patient's level of consciousness and physiological status; initial 15 minutes of intraservice time, patient age 5 years or older Diagnosis Code(s): --- Professional --- D12.5, Benign neoplasm of si (more content not included)... Normal [facility] HISTORY PHYSICALon 3 HISTORY PHYSICAL HNO ID: [id number] Author: Neema Gallo MD Service: General Surgery Author Type: Physician Type: HANDP Filed: 08/07/2023 9:32 AM Note Text: HISTORY AND PHYSICAL Hubert Burris 1965 REFERRING PHYSICIAN: Ayo Mirza, * CHIEF COMPLAINT: Consult (Colonoscopy consult. ) HPI: The patient is a 58 year old male referred for endoscopy. Hubert notes no colon complaints. Patient denies any change in bowel habits, weight changes, blood in stools, black tarry stools or abdominal pain. Denies family history of colon issues. The patient notes no upper GI complaints. Hubert has undergone prior endoscopy. Last colonoscopy 06/17/[address] Gallo with removal of an adenomatous polyp, 5 year follow-up recommended. PAST MEDICAL HISTORY PAST MEDICAL HISTORY Diagnosis Date Dysmetabolic syndrome impaired fasting glucose History of hypertension Hyperlipidemia Tubular adenoma of colon 2017 PAST SURGICAL HISTORY PAST SURGICAL HISTORY Procedure Laterality Date COLONOSCOPY FLX DX W/COLLJ SPEC WHEN PFRMD 06/17/2018 Colonoscopy FOOT/TOES SURGERY PROC UNLISTED 08/2012 left great toe fusion PRO TENNIS ELBOW STRAP 2001 left side RPR UMBILICAL HRNA 5 YRS/> REDUCIBLE 06/19/11 Hernia repair, umbilical with mesh SHOULDER ARTHROSCOPY/SURGERY 2006 AND 2008 both shoulders CURRENT MEDICATIONS Current Outpatient Medications Medication Sig allopurinol (ZYLOPRIM) 300 mg tablet Take 1 tablet by mouth once daily. predniSONE (DELTASONE) 5 mg tablet take 4 tablets by mouth daily for 3 days then 2 for 3 days then 1 for 4 days (Patient not taking: Reported on 04/23/2022) colchicine (COLCRYS) 0.6 mg tablet Take 1 tablet by mouth once daily. (Patient not taking: Reported on 04/23/2022 ) allopurinol (ZYLOPRIM) 300 mg tablet Take 300 mg by mouth once daily. (Patient not taking: Reported on 10/04/2021 ) sildenafil (VIAGRA) 100 mg tablet Take 30 min to 1 hour before sexual activity. (Patient not taking: Reported on 10/04/2021 ) No current facility-administered medications for this visit. ALLERGIES: Chantix [Varenicline], Lexapro [Escitalopram], and Symbicort [Budesonide-Formotero l] PERSONAL HISTORY: SOCIAL HISTORY Social History Tobacco Use Smoking status: Never Smokeless tobacco: Former Types: Snuff Quit date: 06/07/2010 Vaping Use Vaping Use: Never used Substance Use Topics Alcohol use: Yes Alcohol/week: 15.0 standard drinks of alcohol Types: 6 Cans of Beer (12oz) per week Comment: history of heavier alcohol use Drug use: No FAMILY HISTORY: FAMILY HISTORY FAMILY HISTORY Problem Relation Age of Onset Ischemic Heart Disease Mother CABG ~69yo other (HODGKINS DISEASE) Father REVIEW OF SYMPTOMS: The review of systems data was entered by the nurse and reviewed by me Nursing Notes: Akua Reddy RN 06/23/2023 8:28 AM Signed REVIEW OF SYSTEMS: General: The patient denies fatigue, denies weight loss, denies weight gain, denies feeling hot, and denies feelings of cold. Eyes: The patient denies glaucoma, denies eye injury/surgery, does not wear glasses or contacts. Ear/Nose/Throat: The patient NOTES allergies, denies hayfever, denies ear infections, and denies bloody noses. Cardiovascular: The patient denies chest pain, denies heart disease, NOTES high blood pressure,denies cardiac stent, denies prior heart attack, denies irregular heart beat, NOTES high cholesterol, denies poor circulation, denies heart failure, other cardiac issues, denies claudication, denies cold feet, denies peripheral arterial stent. Respiratory: The patient denies tuberculosis, denies pneumonia, denies frequent cough, denies pulmonary embolism, denies shortness of breath, and denies coughing up blood. Gastrointestinal: The patient denies difficulty swallowing, denies acid reflux, denies ulcers, denies vomiting, denies jaundice/hepatitis, denies gallbladder problems, denies black or tarry stools, denies hemorrhoids, denies bleeding from rectum, denies diverticulitis, denies constipation, denies diarrhea, denies loss of stool control, and denies hernias. Kidney/Bladder: The patient denies kidney stones, denies urine infections, and denies bloody urine. Skin: The patient denies a history of skin cancer, denies bleeding/changing moles, and denies a history of skin rash. Neurologic: The patient denies a history of epilepsy/convulsions, denies headaches, denies head/spinal injuries, and denies stroke/TIA. Psychiatric: The patient denies psychiatric medications, denies depression, and denies voices, denies substance abuse. Endocrine: The patient denies thyroid disorders, denies diabetes, and denies hormonal problems. Hematologic: The patient denies a history of bruising, denies bleeding, and denies anemia, denies blood clots. Infections: The patient denies a history of measles and mumps, denies rheumatic fever, and denies sexually transmitted dis (more content not included)... Normal [facility] NURSING PROGon 08-07-2023 NURSING PROG HNO ID: [id number] Author: Jaja Payne RN Service: ? Author Type: Registered Nurse Type: Nursing Progress Note Filed: 08/07/2023 11:52 AM Note Text: Arrived in phase II via cart. Left lateral position. Sedated, but responds to verbal stimuli. Color normal; skin warm and dry. Respirations wnl and unlabored. Abdomen soft and with + bowel sounds in quads X 4. Patient resting comfortably. Jaja Payne RN Normal [facility] SURGICAL PATHOLOGYon 023 CASE REPORT Normal [facility] Comment on above: Order Comment: Speci men Type: TISSUE SPECIMEN Ordering Facility: [facility] Address: [address] [place] [address] Result Comment: Surg ica Pathology Report Case: [id number] Authorizing Provider: Neema Gallo MD Collected: 08/07/2023 10:38 AM Ordering Location: Ambulatory Surgery Received: 08/07/2023 02:25 PM Pathologist: Allie Zepeda MD Specimen: SIGMOID COLON POLYP Performed By: #### S #### [facility] CLIA [id number] [address] [place] [address] [place] FINAL DIAGNOSIS Normal [facility] Comment on above: Order Comment: Speci men Type: TISSUE SPECIMEN Ordering Facility: [facility] Address: [address] [place] [address] Result Comment: Sigm oid, polypectomy: -Tubular adenoma Performed By: #### S #### [facility] CLIA [id number] [address] [place] [address] [place] FINAL PERFORMING LAB Normal [facility] Comment on above: Order Comment: Speci men Type: TISSUE SPECIMEN Ordering Facility: [facility] Address: [address] [place] [address] Result Comment: Diag nostic interpretation performed at [place] [address] CLIA# [id number] Online Communications Specialist: Iván Quinones M.D. Performed By: #### S #### [facility] CLIA [id number] [address] [place] [address] [place] GROSS DESCRIPTION Normal [facility] Comment on above: Order Comment: Speci men Type: TISSUE SPECIMEN Ordering Facility: [facility] Address: [address] [place] [address] Result Comment: A. S IGMOID COLON POLYP Received in formalin is one piece of dsouza, soft tissue measuring 0.3 x 0.2 x 0.2 cm. Totally submitted in one cassette. Gross examination performed at [facility] [place], [address] [place] [address] August 08, 2023 12:05 AM Performed By: #### S #### [facility] CLIA [id number] [address] [place] [address] [place] CNOVon 06-23-2023 CNOV Office Visit (GENSWS ) HUBERT BURRIS ([id number]) 1965 M Date Time Provider Department 06/23/23 8:00 AM GRISEL FLORENCE During your visit today, we recorded the following information about you: Temperature Pulse Blood pressure Weight 98.6 degrees 96/minute 122/80 112.7 kg Height 1.778 m Grisel Florence PA-C 06/23/2023 9:05 AM Signed HISTORY AND PHYSICAL Hubert Burris 1965 REFERRING PHYSICIAN: Ayo Mirza, * CHIEF COMPLAINT: Consult (Colonoscopy consult. ) HPI: The patient is a 58 year old male referred for endoscopy. Hubert notes no colon complaints. Patient denies any change in bowel habits, weight changes, blood in stools, black tarry stools or abdominal pain. Denies family history of colon issues. The patient notes no upper GI complaints. Hubert has undergone prior endoscopy. Last colonoscopy 06/17/[address] Gallo with removal of an adenomatous polyp, 5 year follow-up recommended. PAST MEDICAL HISTORY Diagnosis Date Dysmetabolic syndrome impaired fasting glucose History of hypertension Hyperlipidemia Tubular adenoma of colon 2017 PAST SURGICAL HISTORY Procedure Laterality Date COLONOSCOPY FLX DX W/COLLJ SPEC WHEN PFRMD 06/17/2018 Colonoscopy FOOT/TOES SURGERY PROC UNLISTED 08/2012 left great toe fusion PRO TENNIS ELBOW STRAP 2001 left side RPR UMBILICAL HRNA 5 YRS/> REDUCIBLE 06/19/11 Hernia repair, umbilical with mesh SHOULDER ARTHROSCOPY/SURGERY 2006 AND 2008 both shoulders Current Outpatient Medications Medication Sig allopurinol (ZYLOPRIM) 300 mg tablet Take 1 tablet by mouth once daily. predniSONE (DELTASONE) 5 mg tablet take 4 tablets by mouth daily for 3 days then 2 for 3 days then 1 for 4 days (Patient not taking: Reported on 04/23/2022) colchicine (COLCRYS) 0.6 mg tablet Take 1 tablet by mouth once daily. (Patient not taking: Reported on 04/23/2022 ) allopurinol (ZYLOPRIM) 300 mg tablet Take 300 mg by mouth once daily. (Patient not taking: Reported on 10/04/2021 ) sildenafil (VIAGRA) 100 mg tablet Take 30 min to 1 hour before sexual activity. (Patient not taking: Reported on 10/04/2021 ) No current facility-administered medications for this visit. ALLERGIES: Chantix [Varenicline], Lexapro [Escitalopram], and Symbicort [Budesonide-Formotero l] PERSONAL HISTORY: Social History Tobacco Use Smoking status: Never Smokeless tobacco: Former Types: Snuff Quit date: 06/07/2010 Vaping Use Vaping Use: Never used Substance Use Topics Alcohol use: Yes Alcohol/week: 15.0 standard drinks of alcohol Types: 6 Cans of Beer (12oz) per week Comment: history of heavier alcohol use Drug use: No FAMILY HISTORY: FAMILY HISTORY Problem Relation Age of Onset Ischemic Heart Disease Mother CABG ~69yo other (HODGKINS DISEASE) Father REVIEW OF SYMPTOMS: The review of systems data was entered by the nurse and reviewed by me Nursing Notes: Akua Reddy RN 06/23/2023 8:28 AM Signed REVIEW OF SYSTEMS: General: The patient denies fatigue, denies weight loss, denies weight gain, denies feeling hot, and denies feelings of cold. Eyes: The patient denies glaucoma, denies eye injury/surgery, does not wear glasses or contacts. Ear/Nose/Throat: The patient NOTES allergies, denies hayfever, denies ear infections, and denies bloody noses. Cardiovascular: The patient denies chest pain, denies heart disease, NOTES high blood pressure,denies cardiac stent, denies prior heart attack, denies irregular heart beat, NOTES high cholesterol, denies poor circulation, denies heart failure, other cardiac issues, denies claudication, denies cold feet, denies peripheral arterial stent. Respiratory: The patient denies tuberculosis, denies pneumonia, denies frequent cough, denies pulmonary embolism, denies shortness of breath, and denies coughing up blood. Gastrointestinal: The patient denies difficulty swallowing, denies acid reflux, denies ulcers, denies vomiting, denies jaundice/hepatitis, denies gallbladder problems, denies black or tarry stools, denies hemorrhoids, denies bleeding from rectum, denies diverticulitis, denies constipation, denies diarrhea, denies loss of stool control, and denies hernias. Kidney/Bladder: The patient denies kidney stones, denies urine infections, and denies bloody urine. Skin: The patient denies a history of skin cancer, denies bleeding/changing moles, and denies a history of skin rash. Neurologic: The patient denies a history of epilepsy/convulsions, denies headaches, denies head/spinal injuries, and denies stroke/TIA. Psychiatric: The patient denies psychiatric medications, denies depression, and denies voices, denies substance abuse. Endocrine: The patient denies thyroid disorders, denies diabetes, and denies hormonal problems. Hematologic: The patient denies a history of bruising, denies (more content not included)... Normal [facility] 36on 01-06-2023 36 Patient has no work up, or prior imaging. Please schedule SM. Normal [facility] 36 Name of Caller: Hubert Contact Reason for Appointment: We received a web request for Hubert, he was requesting an apt with Dr. Davidson for severe hip pain. I attempted top call him and left him a voicemail with a number to the office and responded to his email. Office Name: Ortho Web Request Info: FirstName : Carlos LastName : Fatuma Pronouns : PronounsOther : Email : [email or web address] Phone : [phone] Birthdate : 1965 12:00:00 AM BestTimeToCallBack : any AppointmentDate : LYNN PhysicianRequested : OSVALDO DAVIDSON MD Symptoms : Severe hip pain OptIn : False Normal [facility] Telephone Encounteron 2021 [employer] Authentication Interface Message Text Pt will complete medical release form. Primary care provider needs all records from Dr Mandujano. Normal [facility] [employer] Authentication Interface Message Text Left msg. Please complete medical release form for . Form will need to be scanned in media and then faxed over to medical records. Normal [facility] [employer] Authentication Interface Message Text Situation: Nicole called into clinic from [facility]. Background: Nicole states she received a re ferral from provider, but she also needs the last visit summary of the patient please fax to [phone]. Assessment: n/a Recommendation: Please fax to [phone] to Nicole. Normal [facility] [employer] [facility] Telephone Encounteron 2021 [employer] Authentication Interface Message Text Most recent visit in Rheumatology was on 05/09/2020 with Marina Mandujano MD Normal The [email or web address] Interface Message Text From: Hubert Burris To: Marina Mandujano MD Sent: 08/20/2022 6:29 AM EDT Subject: Allopurinol I am on my last refill for Allopurinol. Should I be scheduling an appointment for follow up or will new script be able to be sent? Seems to be working very well after a rough start. Thank You Normal [facility] [employer] [facility] Telephone Encounteron 2020 [employer]hentication Interface Message Text Needs appt. Short refill given. No refills without appt. Please arrange even a phone visit. Hasn't been seen in over a year Normal [facility] [employer] [facility] [employer] Interface Message Text Most recent visit in Rheumatology was on 05/09/2020 with Marina Mandujano MD Next appointment in Rheumatology is on 12/11/2021 at 8:40 AM with Marina Mandujano MD CBC (last 3 years, up to 5 values) WBC RBC Hgb Hct MCV RDW Plt 05/09/20 1132 6.8 5.12 15.8 46.1 90 13.1 228 Basic Metabolic Panel Na K Cl CO2 Gap Glu BUN Cr Ca 05/09/20 1132 137 4.4 103 21 17 88 10 0.81 9.3 LFT's (last 3 years, up to 5 values) T Prot Albumin D Bili T Bili Alk Phos ALT AST 05/09/20 1132 6.6 4.0 0.10 1.1 90 37 24 Normal [facility] [employer] [facility] Telephone Encounteron 2020 [employer] Authentication Interface Message Text Most recent visit in Rheumatology was on 05/09/2020 with Marina Mandujano MD Next appointment in Rheumatology is on 12/11/2021 at 8:40 AM with Marina Mandujano MD CBC (last 3 years, up to 5 values) WBC RBC Hgb Hct MCV RDW Plt 05/09/20 1132 6.8 5.12 15.8 46.1 90 13.1 228 Basic Metabolic Panel Na K Cl CO2 Gap Glu BUN Cr Ca 05/09/20 1132 137 4.4 103 21 17 88 10 0.81 9.3 LFT's (last 3 years, up to 5 values) T Prot Albumin D Bili T Bili Alk Phos ALT AST 05/09/20 1132 6.6 4.0 0.10 1.1 90 37 24 Normal [facility] [employer] [facility] GLUCOSEon 07-30-2021 Glucose [Mass/Vol] 102 mg/dL Normal 74 - 106 [facility] Comment on above: Performed By: #### 2 [id number] #### [facility],[address] [place] [address] LIPID PROFILEon 07-30-2021 Cholesterol [Mass/Vol] 224 mg/dL Normal 0 - 240 [facility] Comment on above: Performed By: #### 2 83042 #### [facility],[address] [place] [address]048 Cholesterol in HDL [Mass/Vol] 39 mg/dL Low 40 - 60 [facility] Comment on above: Performed By: #### 2 [id number] #### [facility],[address] [place] [address]260 Cholesterol in LDL [Mass/Vol] 142 mg/dL High 0 - 129 [facility] Comment on above: Performed By: #### 2 29460 #### [facility],[address] [place] [address]7735 Cholesterol.total/Mercedes sterol in HDL [Mass ratio] 5.7 {ratio} High 0.0 - 5.0 [facility] Comment on above: Performed By: #### 2 86957 #### [facility],[address] [place] [address] 12142 Lipid 1996 panel Normal [facility] Comment on above: Result Comment: LIPI D PROFILE Performed By: #### 2 97531 #### [facility],[address] [place] [address] Triglyceride [Mass/Vol] 213 mg/dL High 0 - 150 [facility] Comment on above: Performed By: #### 2 83057 #### [facility],[address] [place] [address] CNOVon 07-26-2020 CNOV Office Visit (AKURFL ) HUBERT BURRIS ([id number]) 1965 M Date Time Provider Department 07/26/20 11:30 AM STEVE MCCRARY During your visit today, we recorded the following information about you: Weight Height 104.3 kg 1.778 m Steve Mccrary MD 07/26/2020 11:48 AM Signed [facility] UROLOGY NEW PATIENT CLINIC NOTE PATIENT INFO: Hubert Burris (55 year old) Referred by: Ayo Mirza MD ([facility]) [address] [place] [address] 07/26/2020 UROLOGY DIAGNOSES: 1. 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 Erections: Decreased Masturbatory Erections: Decreased Penile Curvature: No Curvature/Deviation: No Prior Treatment for Sexual Dysfunction: -watchful waiting, not satisfied with treatment Symptom Scores: RUTH Score: 6 (Scores range from 1 to 25) A score of 20 or higher suggest a normal degree of erectile functioning. Low scores (10 or less) suggest moderate to severe ED. PMH: PAST MEDICAL HISTORY Diagnosis Date - Dysmetabolic syndrome impaired fasting glucose - History of hypertension - Hyperlipidemia PSH: PAST SURGICAL HISTORY Procedure Laterality Date - COLONOSCOP W/ OR W/O [facility] SPEC 06/17/2018 Colonoscopy - FOOT/TOES SURGERY PROC UNLISTED 08/2012 left great toe fusion - PRO TENNIS ELBOW STRAP 2001 left side - REPAIR UMBILICAL JONATHAN,5+Y/O,REDUC 06/19/11 Hernia repair, umbilical with mesh - SHOULDER ARTHROSCOPY/SURGERY 2006 AND 2008 both shoulders SH: Social History Tobacco Use - Smoking status: Never Smoker - Smokeless tobacco: Former User Types: Snuff Substance Use Topics - Alcohol use: Yes Alcohol/week: 15.0 standard drinks Types: 6 Cans of Beer (12oz) per week Comment: history of heavier alcohol use - Drug use: No FH: FAMILY HISTORY Problem Relation Age of Onset - Ischemic Heart Disease Mother CABG ~69yo - other (HODGKINS DISEASE) Father REVIEW OF SYSTEMS: Review of Systems: Constitutional: No weakness, fever/chills, unexplained weight change Psychiatric: Stable mood Skin: No rashes or lesions HEENT: No blurred vision or double vision. No severe or worsening headaches. Sense of smell intact Neck: No masses or pain Chest: No shortness of breath or cough. No history of recurrent pneumonia, bronchitis, or sinustitis. CVS: No chest pains or palpatations. No history of cardiovascular disease. GI: No nausea, vomiting or abdominal pain Neurologic: No weakness or sensory changes : see above Musculoskeletal: Stable All other systems reviewed and noncontributory Allergy: Patient has no known allergies. MEDICATIONS: Current Outpatient Medications Medication Sig Dispense Refill - allopurinol (ZYLOPRIM) 300 mg tablet Take 300 mg by mouth once daily. - sildenafil (VIAGRA) 100 mg tablet Take 30 min to 1 hour before sexual activity. 10 tablet 11 Current Facility-Administered Medications Medication Dose Route Frequency Provider Last Rate Last Dose - methylPREDNISolone acetate 80 mg injection (DEPO-Medrol) 80 mg Injection - FOR ORTHO USE ONLY Joe Anderson 80 mg at 12/07/19 110 - bupivacaine (PF) 0.25 % (2.5 mg/mL) 4 mL injection (SENSORCAINE MPF) 4 mL Injection - FOR ORTHO USE ONLY Joe Anderson 4 mL at 12/07/19 110 - lidocaine (PF) 10 mg/mL (1 %) 4 mL injection (XYLOCAINE) 4 mL Injection - FOR ORTHO USE ONLY Joe Anderson 4 mL at 12/07/19 1101 PHYSICAL EXAM: Ht 177.8 cm (5' 10) Wt 104.3 kg (230 lb) BMI 33.00 kg/m? Body mass index is 33 kg/m?. General Appearance/ Constitutional: Well developed, well nourished, and in no apparent distress HEENT: Normal Neck: Lymph Nodes: Normal Cardiac: Normal Breast: Not examined Pulmonary: Ascultation: Not examined Effort: Normal GI: Soft, Non-tender, Non-distended and Costovertebral angle tenderness absent Peripheral Vascular: Not examined Extremities: Cyanosis absent, Clubbing absent and Edema absent Skin: Normal Neurologic: Normal, Grossly non-focal, Alert and oriented and Affect appropriate (MALE): Penis: Normal without external lesions and Circumcised Testicles: Normal, left grade 3 vx Scrotum: Normal PSA Screening (ng/mL) Date Value 07/31/2016 0.99 DIAGNOSES: 1. 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 Trial of Viagra 100mg If no improvement can consider, sex therapy, checking T labs, etc RTO PRN Steve Mccrary MD Referring Provider: AYO MIRZA [[id number]] Allergies As of Date: 07/26/2020 (No Known Allergies) Date Reviewed: 07/26/2020 Reviewed by: Chel Downing Pillar Worker - Fully Assessed Reason for Visit: Erectile Dysfunction [339] Primary Visit Diagnosis:Impotence of organic origin [N52.9] Order(s):sildenafil (VIAGRA) 100 mg tabletTake 30 min to 1 hour before sexual activity.Disp: 10 tabletRfl: 11 Prescriptions as of 07/26/2020 Sig: ALLOPURINOL 300 MG TABLET Take 300 mg by mouth once anna* SILDENAFIL 100 MG TABLET Take 30 min to 1 hour before * Problem List As Of Date 07/26/2020 Noted Resolved History of hypertension [Z86.79] 09/26/2005 Hyperlipidemia [E78.5] 09/26/2005 Dysmetabolic syndrome X [E88.81] 09/26/2005 More... Finger pain [M79.646] 05/24/2012 Prescriptions ordered this encounter Disp Refills Start End SILDENAFIL 100 MG TABLET 10 t* 11 07/26/2020 Sig: Take 30 min to 1 hour before sexual activity. Questionnaire: [facility] SEXUAL HEALTH INVENTORY FOR MEN How do you rate your confidence that you could get and keep an erection? -> 1 - Very Low When you had erections with sexual stimuation, how often were your erections hard enough for penetration (entering your partner)? -> 1 - Almost Never or Never During sexual intercouse, how often were you able to maintain your erection after you had penetrated (entered) your partner? -> 1 - Almost Never Or Never During sexual intercourse, how difficult was it to maintain your erection to completion of intercourse? -> 1 - Extremely DIfficult When you attempted sexual intercourse, how often was it satisfactory for you? -> 2 - A F- e- w T- i- m- e- s (- M- u- c- h L- e- s- s T- h- a- n H- a- l- f T- h- e T- i- m- e) Total Score -> 6 Encounter Status:Closed by STEVE MCCRARY MD on 07/26/20 [facility] PROGRESSon 07-26-2020 PROGRESS HNO ID: [id number] Author: Steve Mccrary Service: ? Author Type: Physician Type: Progress Notes Filed: 07/26/2020 11:48 AM Note Text: [facility] UROLOGY NEW PATIENT CLINIC NOTE PATIENT INFO: Hubert Burris (55 year old) Referred by: Ayo Mirza MD ([facility]) [address] [place] [id number] 07/26/2020 UROLOGY DIAGNOSES: 1. 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 Erections: Decreased Masturbatory Erections: Decreased Penile Curvature: No Curvature/Deviation: No Prior Treatment for Sexual Dysfunction: -watchful waiting, not satisfied with treatment Symptom Scores: RUTH Score: 6 (Scores range from 1 to 25) A score of 20 or higher suggest a normal degree of erectile functioning. Low scores (10 or less) suggest moderate to severe ED. PMH: PAST MEDICAL HISTORY Diagnosis Date - Dysmetabolic syndrome impaired fasting glucose - History of hypertension - Hyperlipidemia PSH: PAST SURGICAL HISTORY Procedure Laterality Date - COLONOSCOP W/ OR W/O [facility] SPEC 06/17/2018 Colonoscopy - FOOT/TOES SURGERY PROC UNLISTED 08/2012 left great toe fusion - PRO TENNIS ELBOW STRAP 2001 left side - REPAIR UMBILICAL JONATHAN,5+Y/O,REDUC 06/19/11 Hernia repair, umbilical with mesh - SHOULDER ARTHROSCOPY/SURGERY 2006 AND 2008 both shoulders SH: Social History Tobacco Use - Smoking status: Never Smoker - Smokeless tobacco: Former User Types: Snuff Substance Use Topics - Alcohol use: Yes Alcohol/week: 15.0 standard drinks Types: 6 Cans of Beer (12oz) per week Comment: history of heavier alcohol use - Drug use: No FH: FAMILY HISTORY Problem Relation Age of Onset - Ischemic Heart Disease Mother CABG ~69yo - other (HODGKINS DISEASE) Father REVIEW OF SYSTEMS: Review of Systems: Constitutional: No weakness, fever/chills, unexplained weight change Psychiatric: Stable mood Skin: No rashes or lesions HEENT: No blurred vision or double vision. No severe or worsening headaches. Sense of smell intact Neck: No masses or pain Chest: No shortness of breath or cough. No history of recurrent pneumonia, bronchitis, or sinustitis. CVS: No chest pains or palpatations. No history of cardiovascular disease. GI: No nausea, vomiting or abdominal pain Neurologic: No weakness or sensory changes : see above Musculoskeletal: Stable All other systems reviewed and noncontributory Allergy: Patient has no known allergies. MEDICATIONS: Current Outpatient Medications Medication Sig Dispense Refill - allopurinol (ZYLOPRIM) 300 mg tablet Take 300 mg by mouth once daily. - sildenafil (VIAGRA) 100 mg tablet Take 30 min to 1 hour before sexual activity. 10 tablet 11 Current Facility-Administered Medications Medication Dose Route Frequency Provider Last Rate Last Dose - methylPREDNISolone acetate 80 mg injection (DEPO-Medrol) 80 mg Injection - FOR ORTHO USE ONLY Joe Anderson 80 mg at 12/07/19 1101 - bupivacaine (PF) 0.25 % (2.5 mg/mL) 4 mL injection (SENSORCAINE MPF) 4 mL Injection - FOR ORTHO USE ONLY Joe Anderson 4 mL at 12/07/19 1101 - lidocaine (PF) 10 mg/mL (1 %) 4 mL injection (XYLOCAINE) 4 mL Injection - FOR ORTHO USE ONLY Joe Anderson 4 mL at 12/07/19 1101 PHYSICAL EXAM: Ht 177.8 cm (5' 10) Wt 104.3 kg (230 lb) BMI 33.00 kg/m? Body mass index is 33 kg/m?. General Appearance/ Constitutional: Well developed, well nourished, and in no apparent distress HEENT: Normal Neck: Lymph Nodes: Normal Cardiac: Normal Breast: Not examined Pulmonary: Ascultation: Not examined Effort: Normal GI: Soft, Non-tender, Non-distended and Costovertebral angle tenderness absent Peripheral Vascular: Not examined Extremities: Cyanosis absent, Clubbing absent and Edema absent Skin: Normal Neurologic: Normal, Grossly non-focal, Alert and oriented and Affect appropriate (MALE): Penis: Normal without external lesions and Circumcised Testicles: Normal, left grade 3 vx Scrotum: Normal PSA Screening (ng/mL) Date Value 07/31/2016 0.99 DIAGNOSES: 1. 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 Left a message to return my call. Valeria Newton January 26, 2020 2:09 PM Allergies As of Date: 01/26/2020 (No Known Allergies) Date Reviewed: 12/07/2019 Reviewed by: Joe Anderson - Fully Assessed Reason for Visit: Appointment [186] Problem List As Of Date 01/26/2020 Noted Resolved History of hypertension [Z86.79] 09/26/2005 Hyperlipidemia [E78.5] 09/26/2005 Dysmetabolic syndrome X [E88.81] 09/26/2005 More... Finger pain [M79.646] 05/24/2012 Encounter Status:Closed by VALERIA NEWTON on 01/26/20 Normal [facility] CNOVon 12-07-2019 CNOV Office Visit (AGPOB1 ) FATUMAHUBERT ALCANTAR ([id number]) 1965 M Date Time Provider Department 12/07/19 9:30 AM JOE ANDERSON During your visit today, we recorded the following information about you: Respiration Weight Height 16/minute 109.3 kg 1.778 m Giuliana Smith 12/07/2019 11:01 AM Signed REVIEW OF SYSTEMS: GENERAL: Well developed, well nourished. No acute distress PAIN: Pain 5/10 CARDIOVASCULAR: Negative for chest pain, leg swelling and palpations. MSK: joint pain Left knee SKIN: Negative for lesions, rash, itching, metal sensitivity NEURO: Negative for seizure, trauma, numbness/tingling of extremities. ENDOCRINE: Negative for Diabetes Type 1 and Type 2 HEMATOLOGY: Negative for excessive bleeding, clots, bleeding disorders. Joe Anderson MD 12/07/2019 11:01 AM Signed ORTHOPAEDIC OFFICE NOTE CHIEF COMPLAINT: Follow-up left knee pain HISTORY OF PRESENT ILLNESS: Hubert Burris is a 54 year old male who presents for follow-up evaluation of left knee pain. Patient reports overall no change in symptoms. He is still having medial sided knee pain that is constant in nature. Currently he rates pain 4/10 in intensity but it can get up to 10/10 with activity. He is still having catching and popping sensations. He takes occasional nowf-bsz-gxfyvlj anti-phlegm through medications are not helpful. 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 Work has also been difficult. He is here to discuss results of his MRI. He denies fevers chills nausea vomiting weight loss fatigue or malaise. Reviewed nursing note and current pain scale. PAST MEDICAL HISTORY Diagnosis Date - Dysmetabolic syndrome impaired fasting glucose - History of hypertension - Hyperlipidemia PAST SURGICAL HISTORY Procedure Laterality Date - COLONOSCOP W/ OR W/O [facility] SPEC 06/17/2018 Colonoscopy - FOOT/TOES SURGERY PROC UNLISTED 08/2012 left great toe fusion - PRO TENNIS ELBOW STRAP 2001 left side - REPAIR UMBILICAL JONATHAN,5+Y/O,REDUC 06/19/11 Hernia repair, umbilical with mesh - SHOULDER ARTHROSCOPY/SURGERY 2006 AND 2008 both shoulders FAMILY HISTORY Problem Relation Age of Onset - Ischemic Heart Disease Mother CABG ~69yo - other (HODGKINS DISEASE) Father Social History Tobacco Use - Smoking status: Never Smoker - Smokeless tobacco: Former User Types: Snuff Substance Use Topics - Alcohol use: Yes Alcohol/week: 15.0 standard drinks Types: 6 Cans of Beer (12oz) per week Comment: history of heavier alcohol use - Drug use: No MEDICATIONS: No current outpatient medications on file. No current facility-administered medications for this visit. ALLERGIES: ALLERGIES No Known Allergies PHYSICAL EXAMINATION: Resp 16 Ht 5' 10 (1.78m) Wt 241 lb (109.3kg) BMI 34.58 kg/(m2). General Appearance: Well appearing, alert, in no acute distress, well-hydrated, well nourished. Skin: Skin color, texture, turgor normal, no suspicious rashes or lesions. Respiratory: Breathing is symmetric and unlabored Gait: The patient's gait was observed. It was found to be steady and a normal rate/rhythm. There is some antalgia on the left side. He does not require assistive device for ambulation. Extremities: Left lower extremity was examined. Skin is found to be intact that erythema, ecchymosis or surgical scar. There is no specific and swelling or edema/effusion. He has moderate tenderness to palpation along the medial joint line. Range of motion of the knee 0-105? limited by pain and stiffness. The knee is Stable in all planes. Altaf's testing is positive for pain. Range of motion of the hip is full and painless pressure leg test negative. Peripheral Pulses: Normal. Neurologic: Bilateral lower extremities were examined. There is 5/5 strength with hip flexion, knee extension, dorsiflexion, EHL, plantar flexion. Sensation intact in all nerve dermatomes IMAGES: * * *Final Report* * * DATE OF EXAM: Nov ?7:25AM ? AWM ? 0212 ?- ?MRI KNEE WO IVCON LT ?/ PROCEDURE REASON: Left knee pain, unspecified chronicity ?? ? * * * * Physician Interpretation * * * * ?EXAM TITLE: MRI KNEE WO IVCON LT DATE:12/02/2019 COMPARISON: Radiographs 11/21/2019 CLINICAL INDICATION/HISTORY: Left knee pain and locking TECHNIQUE: MRI of the knee performed as per routine protocol. FINDINGS: There is no meniscal tear. The collateral and cruciate ligaments are normal as is the patellar tendon. ?There may be mild distal quadriceps tendinosis. There is mild chondral thinning and irregularity at the medial femoral condyle. ?There is moderate chondromalacia at the medial portion of the patellofemoral compartment. ?Mild chondromalacia throughout the remainder of the knee. There is a small joint effusion. ?There is a 6 cm Lopez's cyst.. Plan ASSESSMENT AND PLAN: 1. Left knee pain, unspecified chronicity - ICD9: 719.46, ICD10: M25.562 (primary diagnosis) 2. Primary osteoarthritis of left knee - ICD9: 715.16, ICD10: M17.12 Functional Plan: Patient is a 54-year-old male presents following evaluation of left-sided knee pain. Overall there is been no significant change in his symptoms. He still having significant discomfort along the medial aspect of the knee that worsens with activity. MRI did not demonstrate any significant acute pathology. Specifically, there was no meniscus tear. He did have some mild degenerative changes of the medial compartment. I think this is likely the source of his pain. I discussed this with him at length. We went over the spectrum nonoperative management for degenerative joint disease. This point time we'll commence conservative treatment. He can continue to take sebw-nwq-alcvqyd pain medication for any pain control issues. I will refer him to physical therapy for evaluation, management modalities as indicated. I did offer him an injection today which she would like to proceed with. I will see him back in approximately 8 weeks for repeat evaluation unless issues should arise sooner. All his questions were answered satisfactorily. He stressed understanding of and agreement with the treatment plan. Large Joint Arthro/Inj: L knee joint The risks, benefits and alternatives of the procedure were reviewed with the patient/surrogate, who agreed to proceed. Written Consent Obtained: N/A Sign In Communication: Completed Time Out: Time Out completed The Time-Out verifies the correct patient, procedure, side/site, position (if applicable) and completion and review of fire risk assessment/protocols (if appropriate): Affirmation of Time Out: Yes Signout Discussion: Yes 12/07/2019 11:01 AM The procedure site was prepped in the usual sterile fashion. Allergies were reviewed Site: L knee joint Medications: 80 mg methylPREDNISolone acetate 80 mg/mL Anesthetics: 4 mL lidocaine (PF) 10 mg/mL (1 %); 4 mL bupivacaine (PF) 0.25 % (2.5 mg/mL) Outcome: Tolerated well, no immediate complications Post-injection instructions were reviewed with the patient and the patient voiced understanding of these instructions. Return in about 8 weeks (around 02/01/2020). Joe Anderson MD Referring Provider: JOE ANDERSON [[id number]] Allergies As of Date: 12/07/2019 (No Known Allergies) Date Reviewed: 12/07/2019 Reviewed by: Joe Anderson - Fully Assessed Reason for Visit: Established Patient [175] Primary Visit Diagnosis:Left knee pain, unspecified chronicity [M25.562] Other Visit Diagnosis:Primary osteoarthritis of left knee [M17.12] Order(s):CONSULT TO PHYSICAL THERAPY (AG) [1642056] Order #: [id number]: 1 Large Joint Arthro/Inj: L knee joint [XRI016] Order #: [id number] methylPREDNISolone acetate 80 mg injection (DEPO-Medrol)Disp: Rfl: bupivacaine (PF) 0.25 % (2.5 mg/mL) 4 mL injection (SENSORCAINE MPF)Disp: Rfl: lidocaine (PF) 10 mg/mL (1 %) 4 mL injection (XYLOCAINE)Disp: Rfl: Problem List As Of Date 12/07/2019 Noted Resolved History of hypertension [Z86.79] 09/26/2005 Hyperlipidemia [E78.5] 09/26/2005 Dysmetabolic syndrome X [E88.81] 09/26/2005 More... Finger pain [M79.646] 05/24/2012 Prescriptions ordered this encounter Disp Refills Start End METHYLPREDNISOLONE ACETATE 80 MG/ML * 12/07/2019 Route: Inj-ORTHO BUPIVACAINE (PF) 0.25 % (2.5 MG/ML) * 12/07/2019 Route: Inj-ORTHO LIDOCAINE (PF) 10 MG/ML (1 %) INJECT* 12/07/2019 Route: Inj-ORTHO Disposition: Return in about 8 weeks (around 02/01/2020). Follow-up and Disposition History Recorded Encounter Status:Closed by JOE ANDERSON MD on 12/07/19 [facility] PROGRESSon 12-07-2019 PROGRESS HNO ID: [id number] Author: Joe Anderson Service: ? Author Type: Physician Type: Progress Notes Filed: 12/07/2019 11:01 AM Note Text: ORTHOPAEDIC OFFICE NOTE CHIEF COMPLAINT: Follow-up left knee pain HISTORY OF PRESENT ILLNESS: Hubert Burris is a 54 year old male who presents for follow-up evaluation of left knee pain. Patient reports overall no change in symptoms. He is still having medial sided knee pain that is constant in nature. Currently he rates pain 4/10 in intensity but it can get up to 10/10 with activity. He is still having catching and popping sensations. He takes occasional netw-euz-eveyupv anti-phlegm through medications are not helpful. 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 Work has also been difficult. He is here to discuss results of his MRI. He denies fevers chills nausea vomiting weight loss fatigue or malaise. Reviewed nursing note and current pain scale. PAST MEDICAL HISTORY Diagnosis Date - Dysmetabolic syndrome impaired fasting glucose - History of hypertension - Hyperlipidemia PAST SURGICAL HISTORY Procedure Laterality Date - COLONOSCOP W/ OR W/O [facility] SPEC 06/17/2018 Colonoscopy - FOOT/TOES SURGERY PROC UNLISTED 08/2012 left great toe fusion - PRO TENNIS ELBOW STRAP 2002 left side - REPAIR UMBILICAL JONATHAN,5+Y/O,REDUC 06/19/11 Hernia repair, umbilical with mesh - SHOULDER ARTHROSCOPY/SURGERY 2006 AND 2008 both shoulders FAMILY HISTORY Problem Relation Age of Onset - Ischemic Heart Disease Mother CABG ~69yo - other (HODGKINS DISEASE) Father Social History Tobacco Use - Smoking status: Never Smoker - Smokeless tobacco: Former User Types: Snuff Substance Use Topics - Alcohol use: Yes Alcohol/week: 15.0 standard drinks Types: 6 Cans of Beer (12oz) per week Comment: history of heavier alcohol use - Drug use: No MEDICATIONS: No current outpatient medications on file. No current facility-administered medications for this visit. ALLERGIES: ALLERGIES No Known Allergies PHYSICAL EXAMINATION: Resp 16 Ht 5' 10 (1.78m) Wt 241 lb (109.3kg) BMI 34.58 kg/(m2). General Appearance: Well appearing, alert, in no acute distress, well-hydrated, well nourished. Skin: Skin color, texture, turgor normal, no suspicious rashes or lesions. Respiratory: Breathing is symmetric and unlabored Gait: The patient's gait was observed. It was found to be steady and a normal rate/rhythm. There is some antalgia on the left side. He does not require assistive device for ambulation. Extremities: Left lower extremity was examined. Skin is found to be intact that erythema, ecchymosis or surgical scar. There is no specific and swelling or edema/effusion. He has moderate tenderness to palpation along the medial joint line. Range of motion of the knee 0-105? limited by pain and stiffness. The knee is Stable in all planes. Altaf's testing is positive for pain. Range of motion of the hip is full and painless pressure leg test negative. Peripheral Pulses: Normal. Neurologic: Bilateral lower extremities were examined. There is 5/5 strength with hip flexion, knee extension, dorsiflexion, EHL, plantar flexion. Sensation intact in all nerve dermatomes IMAGES: * * *Final Report* * * DATE OF EXAM: Nov ?7:25AM ? AWM ? 0212 ?- ?MRI KNEE WO IVCON LT ?/ PROCEDURE REASON: Left knee pain, unspecified chronicity ?? ? * * * * Physician Interpretation * * * * ?EXAM TITLE: MRI KNEE WO IVCON LT DATE:12/02/2019 COMPARISON: Radiographs 11/21/2019 CLINICAL INDICATION/HISTORY: Left knee pain and locking TECHNIQUE: MRI of the knee performed as per routine protocol. FINDINGS: There is no meniscal tear. The collateral and cruciate ligaments are normal as is the patellar tendon. ?There may be mild distal quadriceps tendinosis. There is mild chondral thinning and irregularity at the medial femoral condyle. ?There is moderate chondromalacia at the medial portion of the patellofemoral compartment. ?Mild chondromalacia throughout the remainder of the knee. There is a small joint effusion. ?There is a 6 cm Lopez's cyst.. Plan ASSESSMENT AND PLAN: 1. Left knee pain, unspecified chronicity - ICD9: 719.46, ICD10: M25.562 (primary diagnosis) 2. Primary osteoarthritis of left knee - ICD9: 715.16, ICD10: M17.12 Functional Plan: Patient is a 54-year-old male presents following evaluation of left-sided knee pain. Overall there is been no significant change in his symptoms. He still having significant discomfort along the medial aspect of the knee that worsens with activity. MRI did not demonstrate any significant acute pathology. Specifically, there was no meniscus tear. He did have some mild degenerative changes of the medial compartment. I think this is likely the source of his pain. I discussed this with him at length. We went over the spectrum nonoperative management for degenerative joint disease. This point time we'll commence conservative treatment. He can continue to take ngcd-hjn-appqieo pain medication for any pain control issues. I will refer him to physical therapy for evaluation, management modalities as indicated. I did offer him an injection today which she would like to proceed with. I will see him back in approximately 8 weeks for repeat evaluation unless issues should arise sooner. All his questions were answered satisfactorily. He stressed understanding of and agreement with the treatment plan. Large Joint Arthro/Inj: L knee joint The risks, benefits and alternatives of the procedure were reviewed with the patient/surrogate, who agreed to proceed. Written Consent Obtained: N/A Sign In Communication: Completed Time Out: Time Out completed The Time-Out verifies the correct patient, procedure, side/site, position (if applicable) and completion and review of fire risk assessment/protocols (if appropriate): Affirmation of Time Out: Yes Signout Discussion: Yes 12/07/2019 11:01 AM The procedure site was prepped in the usual sterile fashion. Allergies were reviewed Site: L knee joint Medications: 80 mg methylPREDNISolone acetate 80 mg/mL Anesthetics: 4 mL lidocaine (PF) 10 mg/mL (1 %); 4 mL bupivacaine (PF) 0.25 % (2.5 mg/mL) Outcome: Tolerated well, no immediate complications Post-injection instructions were reviewed with the patient and the patient voiced understanding of these instructions. Return in about 8 weeks (around 02/01/2020). Joe Anderson MD Normal [facility] PROGRESS HNO ID: [id number] Author: Giuliana Smith Service: ? Author Type: ? Type: Progress Notes Filed: 12/07/2019 11:01 AM Note Text: REVIEW OF SYSTEMS: GENERAL: Well developed, well nourished. No acute distress PAIN: Pain 5/10 CARDIOVASCULAR: Negative for chest pain, leg swelling and palpations. MSK: joint pain Left knee SKIN: Negative for lesions, rash, itching, metal sensitivity NEURO: Negative for seizure, trauma, numbness/tingling of extremities. ENDOCRINE: Negative for Diabetes Type 1 and Type 2 HEMATOLOGY: Negative for excessive bleeding, clots, bleeding disorders. Normal [facility] MRI KNEE WO IVCON LTon 12-02 MRI KNEE WO IVCON LT * * *Final Report* * * DATE OF EXAM: Dec 02 2019 7:25AM AWM 0212 - MRI KNEE WO IVCON LT / PROCEDURE REASON: Left knee pain, unspecified chronicity * * * * Physician Interpretation * * * * EXAM TITLE: MRI KNEE WO IVCON LT DATE:12/02/2019 COMPARISON: Radiographs 11/21/2019 CLINICAL INDICATION/HISTORY: Left knee pain and locking TECHNIQUE: MRI of the knee performed as per routine protocol. FINDINGS: There is no meniscal tear. The collateral and cruciate ligaments are normal as is the patellar tendon. There may be mild distal quadriceps tendinosis. There is mild chondral thinning and irregularity at the medial femoral condyle. There is moderate chondromalacia at the medial portion of the patellofemoral compartment. Mild chondromalacia throughout the remainder of the knee. There is a small joint effusion. There is a 6 cm Lopez's cyst. IMPRESSION: 1. Chondromalacia. 2. Mild distal quadriceps tendinosis. 3. Joint effusion and Lopez's cyst. Amortization Schedule Clerk: PSCB Transcribe Date/Time: Dec 02 2019 1:59P Dictated by : TRU HARLEY MD This examination was interpreted and the report reviewed and electronically signed by: TRU HARLEY MD on Dec 02 2019 2:04PM EST Normal [facility] CNOVon 11-21-2019 CNOV Office Visit (AGPOB1 ) HUBERT BURRIS ([id number]) 1965 M Date Time Provider Department 11/21/19 8:00 AM JOE ANDERSON REJIB1 During your visit today, we recorded the following information about you: Respiration Weight Height 20/minute 109.3 kg 1.778 m Grisel PatriciaMARIO harris 11/21/2019 8:29 AM Signed REVIEW OF SYSTEMS: GENERAL: Well developed, well nourished. No acute distress PAIN: Pain Left knee CARDIOVASCULAR: Negative for chest pain, leg swelling and palpations. MSK: joint pain Left knee and swelling Left knee SKIN: Negative for lesions, rash, itching, metal sensitivity NEURO: Negative for seizure, trauma, numbness/tingling of extremities. ENDOCRINE: Negative for Diabetes Type 1 and Type 2 HEMATOLOGY: Negative for excessive bleeding, clots, bleeding disorders. Joe Anderson MD 11/21/2019 8:29 AM Signed ORTHOPAEDIC OFFICE NOTE CHIEF COMPLAINT: Left knee pain HISTORY OF PRESENT ILLNESS: Hubert Burris is a 54 year old male who presents for evaluation of left knee pain. Patient reports that he's had approximately 3 weeks of worsening pain in the left knee. He does not recall specific injury or inciting event although he reports it did start bothering him after that she basketball 1 night. He locates pain along the medial aspect in the and states it bothers relatively constantly throughout the day. He rates the 8?9/10 in intensity. The pain is exacerbated by walking or running. He does report mechanical symptoms at the knee with painful catching and popping. Pain was partially relieved by ice and rest. He has take [id number]-[id number] anti-inflammatories for pain control which are not very effective. He does not require assistive device for ambulation. He denies fevers chills nausea vomiting weight loss fatigue or malaise. His medical history is largely insignificant. 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 Work has been difficult since pain onset. Reviewed nursing note and current pain scale. PAST MEDICAL HISTORY Diagnosis Date - Dysmetabolic syndrome impaired fasting glucose - History of hypertension - Hyperlipidemia PAST SURGICAL HISTORY Procedure Laterality Date - COLONOSCOP W/ OR W/O [facility] SPEC 06/17/2018 Colonoscopy - FOOT/TOES SURGERY PROC UNLISTED 08/2012 left great toe fusion - PRO TENNIS ELBOW STRAP 2001 left side - REPAIR UMBILICAL JONATHAN,5+Y/O,REDUC 06/19/11 Hernia repair, umbilical with mesh - SHOULDER ARTHROSCOPY/SURGERY 2006 AND 2008 both shoulders FAMILY HISTORY Problem Relation Age of Onset - Ischemic Heart Disease Mother CABG ~69yo - other (HODGKINS DISEASE) Father Social History Tobacco Use - Smoking status: Never Smoker - Smokeless tobacco: Former User Types: Snuff Substance Use Topics - Alcohol use: Yes Alcohol/week: 15.0 standard drinks Types: 6 Cans of Beer (12oz) per week Comment: history of heavier alcohol use - Drug use: No MEDICATIONS: No current outpatient medications on file. No current facility-administered medications for this visit. ALLERGIES: ALLERGIES No Known Allergies PHYSICAL EXAMINATION: Resp 20 Ht 5' 10 (1.78m) Wt 241 lb (109.3kg) BMI 34.58 kg/(m2). General Appearance: Well appearing, alert, in no acute distress, well-hydrated, well nourished. Skin: Skin color, texture, turgor normal, no suspicious rashes or lesions. Respiratory: Breathing is symmetric and unlabored Gait: The patient's gait was observed. It was found to be steady and a normal rate/rhythm. There is some antalgia on the left side. He does not require assistive device for ambulation. Extremities: Left lower extremity was examined. Skin is found to be intact that erythema, ecchymosis or surgical scar. There is no specific and swelling or edema/effusion. He has moderate tenderness to palpation along the medial joint line. Range of motion of the knee 0-105? limited by pain and stiffness. The knee is Stable in all planes. Altaf's testing is positive for pain. Range of motion of the hip is full and painless pressure leg test negative. Peripheral Pulses: Normal. Neurologic: Bilateral lower extremities were examined. There is 5/5 strength with hip flexion, knee extension, dorsiflexion, EHL, plantar flexion. Sensation intact in all nerve dermatomes IMAGES: Recent Results (from the past 36 hour(s)) XR KNEE POST OP 3V AP/LAT/MERCHANT LT Narrative Physician office building radiographs, 11/21/2019. Standing AP, lateral and patellar sunrise views of the left knee were obtained and reviewed. The stem showed normal bony anatomic alignment. Joint space is relatively well-maintained throughout. There is no acute fracture, lytic or blastic lesions appreciable. The patella seated within the trochlear groove. Soft tissue otherwise unremarkable. Plan ASSESSMENT AND PLAN: 1. Left knee pain, unspecified chronicity - ICD9: 719.46, ICD10: M25.562 Functional Plan: Patient is a 54-year-old male presenting for evaluation of left knee pain of several weeks in duration. He is reporting mainly medial sided joint pain with mechanical symptoms. Radiographs today are normal. I am concerned that he may have a meniscus tear. Discussed this with him at length. This point time we will further evaluated with advanced imaging using an MRI. I will see him back after his MRI for further treatment recommendations. All his questions were answered satisfactorily. He expressed understanding of and agreement with the treatment plan. Return After MRI. Joe Anderson MD Referring Provider: SELF [[id number]] Allergies As of Date: 11/21/2019 (No Known Allergies) Date Reviewed: 11/21/2019 Reviewed by: Joe Anderson - Fully Assessed Reason for Visit: New [410106] Knee Pain [132] Primary Visit Diagnosis:Left knee pain, unspecified chronicity [M25.562] Order(s):XR KNEE POST OP 3V AP/LAT/MERCHANT LT [8080105] Order #: [id number] MRI KNEE WO IVCON LT [[id number]] Order #: [id number] FUTURE Problem List As Of Date 11/21/2019 Noted Resolved History of hypertension [Z86.79] 09/26/2005 Hyperlipidemia [E78.5] 09/26/2005 Dysmetabolic syndrome X [E88.81] 09/26/2005 More... Finger pain [M79.646] 05/24/2012 Disposition: Return After MRI. Follow-up and Disposition History Recorded Encounter Status:Closed by JOE ANDERSON MD on 11/21/19 [facility] PROGRESSon 11-21-2019 PROGRESS HNO ID: [id number] Author: Joe Anderson Service: ? Author Type: Physician Type: Progress Notes Filed: 11/21/2019 8:29 AM Note Text: ORTHOPAEDIC OFFICE NOTE CHIEF COMPLAINT: Left knee pain HISTORY OF PRESENT ILLNESS: Hubert Burris is a 54 year old male who presents for evaluation of left knee pain. Patient reports that he's had approximately 3 weeks of worsening pain in the left knee. He does not recall specific injury or inciting event although he reports it did start bothering him after that she basketball 1 night. He locates pain along the medial aspect in the and states it bothers relatively constantly throughout the day. He rates the 8?9/10 in intensity. The pain is exacerbated by walking or running. He does report mechanical symptoms at the knee with painful catching and popping. Pain was partially relieved by ice and rest. He has take [id number]-[id number] anti-inflammatories for pain control which are not very effective. He does not require assistive device for ambulation. He denies fevers chills nausea vomiting weight loss fatigue or malaise. His medical history is largely insignificant. 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 Work has been difficult since pain onset. Reviewed nursing note and current pain scale. PAST MEDICAL HISTORY Diagnosis Date - Dysmetabolic syndrome impaired fasting glucose - History of hypertension - Hyperlipidemia PAST SURGICAL HISTORY Procedure Laterality Date - COLONOSCOP W/ OR W/O [facility] SPEC 06/17/2018 Colonoscopy - FOOT/TOES SURGERY PROC UNLISTED 08/2012 left great toe fusion - PRO TENNIS ELBOW STRAP 2001 left side - REPAIR UMBILICAL JONATHAN,5+Y/O,REDUC 06/19/11 Hernia repair, umbilical with mesh - SHOULDER ARTHROSCOPY/SURGERY 2006 AND 2008 both shoulders FAMILY HISTORY Problem Relation Age of Onset - Ischemic Heart Disease Mother CABG ~69yo - other (HODGKINS DISEASE) Father Social History Tobacco Use - Smoking status: Never Smoker - Smokeless tobacco: Former User Types: Snuff Substance Use Topics - Alcohol use: Yes Alcohol/week: 15.0 standard drinks Types: 6 Cans of Beer (12oz) per week Comment: history of heavier alcohol use - Drug use: No MEDICATIONS: No current outpatient medications on file. No current facility-administered medications for this visit. ALLERGIES: ALLERGIES No Known Allergies PHYSICAL EXAMINATION: Resp 20 Ht 5' 10 (1.78m) Wt 241 lb (109.3kg) BMI 34.58 kg/(m2). General Appearance: Well appearing, alert, in no acute distress, well-hydrated, well nourished. Skin: Skin color, texture, turgor normal, no suspicious rashes or lesions. Respiratory: Breathing is symmetric and unlabored Gait: The patient's gait was observed. It was found to be steady and a normal rate/rhythm. There is some antalgia on the left side. He does not require assistive device for ambulation. Extremities: Left lower extremity was examined. Skin is found to be intact that erythema, ecchymosis or surgical scar. There is no specific and swelling or edema/effusion. He has moderate tenderness to palpation along the medial joint line. Range of motion of the knee 0-105? limited by pain and stiffness. The knee is Stable in all planes. Altaf's testing is positive for pain. Range of motion of the hip is full and painless pressure leg test negative. Peripheral Pulses: Normal. Neurologic: Bilateral lower extremities were examined. There is 5/5 strength with hip flexion, knee extension, dorsiflexion, EHL, plantar flexion. Sensation intact in all nerve dermatomes IMAGES: Recent Results (from the past 36 hour(s)) XR KNEE POST OP 3V AP/LAT/MERCHANT LT Narrative Physician office building radiographs, 11/21/2019. Standing AP, lateral and patellar sunrise views of the left knee were obtained and reviewed. The stem showed normal bony anatomic alignment. Joint space is relatively well-maintained throughout. There is no acute fracture, lytic or blastic lesions appreciable. The patella seated within the trochlear groove. Soft tissue otherwise unremarkable. Plan ASSESSMENT AND PLAN: 1. Left knee pain, unspecified chronicity - ICD9: 719.46, ICD10: M25.562 Functional Plan: Patient is a 54-year-old male presenting for evaluation of left knee pain of several weeks in duration. He is reporting mainly medial sided joint pain with mechanical symptoms. Radiographs today are normal. I am concerned that he may have a meniscus tear. Discussed this with him at length. This point time we will further evaluated with advanced imaging using an MRI. I will see him back after his MRI for further treatment recommendations. All his questions were answered satisfactorily. He expressed understanding of and agreement with the treatment plan. Return After MRI. Joe Anderson MD [facility] PROGRESS HNO ID: [id number] Author: Grisel Burns Service: ? Author Type: LICENSED NURSE Type: Progress Notes Filed: 11/21/2019 8:29 AM Note Text: REVIEW OF SYSTEMS: GENERAL: Well developed, well nourished. No acute distress PAIN: Pain Left knee CARDIOVASCULAR: Negative for chest pain, leg swelling and palpations. MSK: joint pain Left knee and swelling Left knee SKIN: Negative for lesions, rash, itching, metal sensitivity NEURO: Negative for seizure, trauma, numbness/tingling of extremities. ENDOCRINE: Negative for Diabetes Type 1 and Type 2 HEMATOLOGY: Negative for excessive bleeding, clots, bleeding disorders. [facility] Clinical Summary: HMSPatient IDon 03-12-2018 OOP Invalid Interpretation Code [facility] Work Phone: Office Visit: New - 1st visi t with practice, Rm: 3on 03-12-2018 NEGATED: Highlighted rowDocumentation of current medications (procedure) Done Invalid Interpretation Code [facility] Work Phone: NEGATED: Highlighted rowDocumentation of current medications (procedure) T Invalid Interpretation Code [facility] Work Phone: NEGATED: Highlighted rowTobacco smoking status NHIS Tobacco smoking status NHIS Invalid Interpretation Code [facility] Work Phone: Vital Signs Date Time Vital Sign Value Performing Clinician Facility 03-16-2025 15:40-0400 Body height 177.[address] Ayo Mirza MD Work Phone: [facility] 03-16-2025 15:40-0400 Body mass index (BMI) [Ratio] 35.9 kg/m2 Dr. Ayo Mirza MD Work Phone: [facility] 03-16-2025 15:40-0400 Body temperature 97.9 [degF] Dr. Ayo Mirza MD Work Phone: [facility] 03-16-2025 15:40-0400 Body weight 113.[address] Ayo Mirza MD Work Phone: [facility] 03-16-2025 15:40-0400 Diastolic blood pressure 88 mm[Hg] Dr. Ayo Mirza MD Work Phone: [facility] 03-16-2025 15:40-0400 Heart rate 73 /min Dr. Ayo Mirza MD Work Phone: [facility] 03-16-2025 15:40-0400 SaO2% (BldA) [Mass fraction] 98 % Dr. Ayo Mirza MD Work Phone: [facility] 03-16-2025 15:40-0400 Systolic blood pressure 124 mm[Hg] Dr. Ayo Mirza MD Work Phone: [facility] 08-14-2023 08:41-0400 Body temperature 97.5 [degF] Grisel Belle PA-C Work Phone: [facility] 08-14-2023 08:41-0400 Body weight 113.76 kg Grisel Naman PA-C Work Phone: [facility] 08-14-2023 08:41-0400 Diastolic blood pressure 82 mm[Hg] Grisel Belle PA-C Work Phone: [facility] 08-14-2023 08:41-0400 Heart rate 80 /min Grisel Naman PA-C Work Phone: [facility] 08-14-2023 08:41-0400 SaO2% (BldA) [Mass fraction] 97 % Grisel Belle PA-C Work Phone: [facility] 08-14-2023 08:41-0400 Systolic blood pressure 140 mm[Hg] Grisel Naman PA-C Work Phone: [facility] 08-07-2023 11:18-0400 Diastolic blood pressure 74 mm[Hg] Neema Gallo MD Work Phone: [facility] 08-07-2023 11:18-0400 Heart rate 58 /min Neema Gallo MD Work Phone: [facility] 08-07-2023 11:18-0400 Respiratory rate 16 /min Neema Gallo MD Work Phone: [facility] 08-07-2023 11:18-0400 SaO2% (BldA) [Mass fraction] 95 % Neema Gallo MD Work Phone: [facility] 08-07-2023 11:18-0400 Systolic blood pressure 141 mm[Hg] Neema Gallo MD Work Phone: [facility] 08-07-2023 09:53-0400 Body temperature 97.9 [degF] Neema Gallo MD Work Phone: [facility] 06-23-2023 08:11-0400 Body height 177.8 cm Grisel Naman PA-C Work Phone: [facility] 06-23-2023 08:11-0400 Body temperature 98.6 [degF] Grisel Belle PA-C Work Phone: [facility] 06-23-2023 08:11-0400 Body weight 112.67 kg Grisel Naman PA-C Work Phone: [facility] 06-23-2023 08:11-0400 Diastolic blood pressure 80 mm[Hg] Grisel Belle PA-C Work Phone: [facility] 06-23-2023 08:11-0400 Heart rate 96 /min Grisel Belle PA-C Work Phone: [facility] 06-23-2023 08:11-0400 SaO2% (BldA) [Mass fraction] 99 % Grisel Florence PA-C Work Phone: [facility] 06-23-2023 08:11-0400 Systolic blood pressure 122 mm[Hg] Grisel ALEJANDRO-Chinedu Work Phone: [facility] NEGATED: Highlighted [id number] 11:25-0400 BMI (Body Mass Index) 33.12 kg/m2 Elizabeth Tittel [facility] [place] [facility] Work Phone: NEGATED: Highlighted [id number] 11:25-0400 BP Diastolic 93 mm[Hg] Elizabeth Tittel [facility] [place] Work Phone: NEGATED: Highlighted [id number] 11:25-0400 BP Diastolic 90 mm[Hg] Elizabeth Tittel [facility] [place] Work Phone: NEGATED: Highlighted [id number] 11:25-0400 BP Systolic 139 mm[Hg] Elizabeth Tittel [facility] [place] [facility] Work Phone: NEGATED: Highlighted [id number] 11:25-0400 BP Systolic 137 mm[Hg] [facility] [place] [facility] Work Phone: NEGATED: Highlighted [id number] 11:25-0400 Height 177.8 cm Elizabeth Tittel [facility] [place] [facility] Work Phone: NEGATED: Highlighted [id number] 11:25-0400 Height 178 cm Elizabeth Tittel [facility] [place] [facility] Work Phone: NEGATED: Highlighted [id number] 11:25-0400 Pulse (Heart Rate) 68 /min Fernanda Tittel [facility] Work Phone: NEGATED: Highlighted [id number] 11:25-0400 Weight 104.33 kg Elizabeth Tittel [facility] [place] [facility] Work Phone: NEGATED: Highlighted [id number] 11: Weight 105 kg Fernanda [facility] Work Phone: Encounters Encounter Date Encounter Type Care Provider Facility Start: 06-02-2025 ambulatory Ayo Gomes lity:[facility] Start: 04-10-2025 End: 04-10-[address] Ayo Mirza MD Work Phone: [facility] Work Phone: Start: 04-10-2025 End: 04-10-[address] Ayo Mirza MD -Laboratory [facility] Start: 04-10-2025 End: 04-10-2025 ambulatory Ayo Mirza Facility:[facility] Start: 03-16-2025 End: 03-16-2025 Patient encounter procedure John ALEJANDRO [facility] Work Phone: Start: 03-16-2025 End: 03-16-2025 ambulatory Ayo Mirza Facility:[facility] Start: 12-20-2024 End: 12-20-[address] Ayo Mirza MD Work Phone: [facility] Work Phone: Start: 12-20-2024 End: 12-20-[address] Ayo Mirza MD -Laboratory, [facility] Start: 12-20-2024 End: 12-20-2024 ambulatory Ayo Mirza Facility:[facility] Start: 11-05-2024 End: 11-05-2024 Letter encounter Marina Mandujano MD Work Phone: [facility] Start: 07-31-2024 End: 07-31-2024 Letter encounter Marina Mandujano MD Work Phone: [facility] Start: 06-23-2024 End: 06-23-2024 ambulatory Ayo Mirza Facility:[facility] Start: 08-14-2023 End: 08-14-2023 ambulatory AYO MIRZA Facility:[facility] Start: 08-14-2023 End: 08-14-2023 Patient encounter procedure Grisel Florence PA-C Work Phone: General Surgery Comment on above: History of colonic p olyps (Primary Dx); Tubular adenoma Start: 08-07-2023 End: 08-07-2023 [facility] Start: 08-07-2023 End: 08-07-2023 Subsequent hospital visit by physician Neema Gallo MD Work Phone: Ambulatory Surgery Comment on above: History of colonic p olyps [Z86.010] Start: 06-23-2023 End: 06-23-2023 Discharged Recurring [facility] Work Phone: Start: 06-23-2023 End: 06-23-2023 ambulatory [place] Subhash MIRZA Facility:[facility] Start: 06-23-2023 End: 06-23-2023 Patient encounter procedure Grisel Florence PA-C Work Phone: General Surgery Comment on above: History of colonic p olyps (Primary Dx) Start: 01-06-2023 Telephone encounter Osvaldo renner MD Work Phone: [facility] Comment on above: [employer] Apt request sever e hip pain Start: 10-28-2022 Letter encounter Marina santos MD Work Phone: [facility] Start: 08-20-2022 ambulatory Marina Winn i, MD Work Phone: [facility] Rheumatology (Arthritis) Comment on above: Allopurinol Start: 08-20-2022 E-mail encounter fro m caregiver Marina Mandujano MD Work Phone: [facility] Rheumatology (Arthritis) Start: 07-30-2021 End: 07-30-2021 ambulatory BENIGNO Pond [facility] Start: 03-12-2018 End: 03-12-2018 Patient encounter procedure Naren Mirza MD Work Phone: [facility] Work Phone: Procedures Date Procedure Procedure Detail Performing Clinician Start: 12-20-2024 Allergen spec ige qu al multiallergen screen Dr. Ayo Mirza MD Work Phone: Start: 12-20-[address] Ayo Mirza MD Work Phone: Start: 12-20-[address] [place] [address] Ayo Mirza MD Work Phone: Start: 12-20-[address] Ayo Mirza MD Work Phone: Start: 12-20-[address] Sherman Mirza MD Work Phone: Start: 12-20-[address] Sherman Mirza MD Work Phone: Start: 12-20-[address] Ayo Mirza MD Work Phone: Start: 12-20-[address] Orlando Mirza MD Work Phone: Start: 12-20-2024 House dust mite (Df) RAST Dr. Ayo Mirza MD Work Phone: Start: 12-20-[address] Beto Mirza MD Work Phone: Start: 12-20-20[address] Pen[address] num [address] Dr. Ayo Mirza MD Work Phone: Start: 12-20-2024 Plantain (Turkish) RAST Dr. Ayo Mirza MD Work Phone: Start: 12-20-[address] Orlando Mirza MD Work Phone: Start: 12-20-[address] Dean Mirza MD Work Phone: Start: 12-20-[address] Dean Mirza MD Work Phone: Start: 08-07-2023 Level iv surg pathol ogy gross&microscopic exam Neema Gallo MD Work Phone: Start: 08-07-2023 Colonoscopy flx dx w /collj spec when pfrmd Grisel Florence PA-C Work Phone: Start: 08-07-2023 Colonoscopy Grisel Gra f PA-C Work Phone: Start: 06-23-2018 Colonoscopy Grisel Gra f PA-C Work Phone: Start: 03-12-2018 End: 03-12-2018 Blood pressure outside of normal parameters - follow-up documented Naren Mirza MD Work Phone: Start: 03-12-2018 End: 03-12-2018 BMI documented as above normal parameters - follow-up documented Naren Miraz MD Work Phone: Start: 03-12-2018 End: 03-12-2018 Current medications documented Naren Mirza MD Work Phone: Start: 03-12-2018 End: 03-12-2018 Pain assessment documented as positive - follow-up documented Naren Mirza MD Work Phone: Start: 03-12-2018 End: 03-12-2018 Tobacco non-user Naren Chandler i, MD Work Phone: Start: 03-12-2018 End: 03-12-2018 X-ray exam of pelvis Naren velazquez MD Work Phone: Start: 07-22-2016 Lipid 1996 panel - S cookie or Plasma Grisel Florence PA-C Work Phone: Plan of Treatment Date Care Activity Detail Author Start: 01-25-2040 RSV vaccine (adult) (1 - 1-dose 75+ series) RSV vaccine (adult) (1 - 1-dose 75+ series) [facility] Start: 04-23-2032 DTaP/Tdap/Td Vaccines (4 - Td or Tdap) DTaP/Tdap/Td Vaccines (4 - Td or Tdap) [facility] Start: 04-23-2032 Tetanus vaccination Tetanus (Td or Tdap) Booster [facility] Start: 04-23-2032 Urine microalbumin profile DTaP,Tdap,Td Vaccine (4 - Td or Tdap) [facility] Start: 08-07-2028 Colonoscopy Colonoscopy [facility] Start: 08-07-2028 Colorectal Cancer Screening Colorectal Cancer Screening [facility] Start: 2025 Hepatitis B (HBV) Vaccine (optional start 60+ years) Hepatitis B (HBV) Vaccine (optional start 60+ years) [facility] Start: 06-26-2024 COVID-19 Vaccine ( season) COVID-19 Vaccine ( season) [facility] Start: 06-26-2024 COVID-19 Vaccine ( season) COVID-19 Vaccine ( season) [facility] Start: 06-26-2024 Influenza vaccination Influenza Vaccine (#1) [facility] Start: 06-26-2023 Covid-19 Vaccine ( season) Covid-19 Vaccine ( season) [facility] Start: 06-26-2023 Influenza vaccination [facility] Start: 06-23-2023 Colonoscopy COLONOSCOPY [facility] Start: 06-23-2023 COLORECTAL CANCER SCREENING COLORECTAL CANCER SCREENING [facility] Start: 04-13-2023 Urine microalbumin profile DTAP,TDAP,TD (2 - Td or Tdap) [facility] Start: 10-26-2022 DEPRESSION ASSESSMENT DEPRESSION ASSESSMENT [facility] Start: 07-26-2022 Influenza vaccination Influenza Vaccine (#1) [facility] Start: 06-26-2022 Influenza vaccination Influenza Vaccine (#1) [facility] Start: 12-29-2021 Shingles (RZV) Vaccine (2 of 2) Shingles (RZV) Vaccine (2 of 2) [facility] Start: 12-29-2021 Zoster Vaccines (2 of 2) Zoster Vaccines (2 of 2) [facility] Start: 12-18-2021 COVID-19 Vaccine (3 - Booster for Tam series) COVID-19 Vaccine (3 - Booster for Tam series) [facility] Start: 12-18-2021 COVID-19 VACCINE (4 - Moderna series) COVID-19 VACCINE (4 - Moderna series) [facility] Start: 07-31-2021 PROSTATE CANCER SCREENING DISCUSSION PROSTATE CANCER SCREENING DISCUSSION [facility] Start: 07-22-2021 Lipid 1996 panel - Serum or Plasma Lipid Screening [facility] Start: 07-22-2021 LIPID SCREEN LIPID SCREEN [facility] Start: 03-28-2021 COVID-19 Vaccine (2 - Booster for Tam series) COVID-19 Vaccine (2 - Booster for Tam series) [facility] Start: 07-22-2019 DIABETES SCREEN DIABETES SCREEN [facility] Start: 07-22-2019 Diabetes Screening Diabetes Screening [facility] Start: 03-12-2018 End: 03-12-2018 Appointment Appointment [facility] Work Phone: Start: 08-21-2017 FECAL OCCULT BLOOD FECAL OCCULT BLOOD [facility] Start: 2015 Measurement of occult blood in single stool specimen [facility] Start: 2015 Pneumococcal vaccination Pneumococcal Vaccine(s) (50+ yrs) (1 of 1 - PCV) [facility] Start: 2015 Screening for malignant neoplasm of colon [facility] Screening [facility] Start: 2015 SHINGRIX VACCINE (1 of 2) SHINGRIX VACCINE (1 of 2) [facility] Start: 2010 COLOGUARD (FIT-DNA) COLOGUARD (FIT-DNA) [facility] Start: [address] COLONOGRAPHY [facility] Start: 2010 Screening for malignant neoplasm of colon [facility] Start: 2010 SIGMOIDOSCOPY SIGMOIDOSCOPY [facility] Start: 01-25-2000 Lipid panel Cholesterol [facility] Start: 01-25-1984 Hepatitis A (HAV) Vaccine (optional start 19+ years) Hepatitis A (HAV) Vaccine (optional start 19+ years) [facility] Start: 01-25-1984 Hepatitis B vaccination Hepatitis B (HBV) Vaccine (1 of 3 - 19+ 3-dose series) [facility] Start: 1983 Hepatitis C screening [facility] Start: 1983 HEPATITIS C SCREENING HEPATITIS C SCREENING [facility] Start: 1983 HIV SCREENING HIV SCREENING [facility] Start: 01-25-1980 HIV screening HIV Test [facility] Start: 1966 MMR Vaccines (1 of 1 - Standard series) MMR Vaccines (1 of 1 - Standard series) [facility] Start: 1965 HEPATITIS B (1 of 3 - 3-dose series) HEPATITIS B (1 of 3 - 3-dose series) [facility] Start: 1965 Hepatitis B Vaccine (1 of 3 - 3-dose series) Hepatitis B Vaccine (1 of 3 - 3-dose series) [facility] Start: 1965 Hepatitis B Vaccines (1 of 3 - 3-dose series) Hepatitis B Vaccines (1 of 3 - 3-dose series) [facility] Start: 1965 HIV screening HIV Screening [facility] Start: 1965 Lipid panel Lipid Panel [facility] Start: 1965 Screening for malignant neoplasm of colon [facility] Patient Education \cps-sql1\CPS_ PtEducatio n\htn.pdf, \cps-sql1\CPS_PtEducatio n\htn.pdf, \cps-sql1\CPS_PtEducatio n\htn.pdf [facility] Work Phone: [facility] Immunizations Immunization Date Immunization Notes Care Provider Fa [facility] 04-23-2022 tetanus toxoid, reduced diphtheria toxoid, and acellular pertussis vaccine, adsorbed Marina Mandujano MD Work Phone: [facility] 11-03-2021 zoster vaccine recombinant Marina Mandujano MD Work Phone: [facility] 07-30-2021 influenza, injectabl e, quadrivalent, preservative free Marina Mandujano MD Work Phone: [facility] 07-30-2021 influenza virus vaccine, unspecified formulation Marina Mandujano MD Work Phone: [facility] 01-31-2021 Tam SARS-COV-2 (COVID-19) vaccine, vector non-replicating, recombinant spike protein-[id number], preservative free, 0.5 mL (NIX=492) Marina Mandujano MD Work Phone: [facility] 05-26-2018 tetanus toxoid, reduced diphtheria toxoid, and acellular pertussis vaccine, adsorbed Marina Mandujano MD Work Phone: [facility] 10-26-2013 influenza, seasonal, injectable Marina Mandujano MD Work Phone: [facility] 04-13-2013 tetanus toxoid, reduced diphtheria toxoid, and acellular pertussis vaccine, adsorbed Marina Mandujano MD Work Phone: [facility] No information available. [place] [facility] Work Phone: Payers Date Payer Category Payer Self-pay [id number] 2018 Commercial [employer]emn[employer] - HMO/PPO/POS [id number] 2018 Unknown [id number] 2014 Unknown [id number] 1965 Unknown [id number] Self-pay SELF PAY INSURANCE [id number] Unknown [facility] [id number] Unknown [id number] 62 Unknown [id number] 62 Unknown [id number] 62 Unknown [id number] 62 Unknown [id number] 62 Social History Date Type Detail Facility Start: 05-09-2020 End: 08-07-2023 Tobacco smoking status INIS Never smoked tobacco [facility] Start: 05-09-2020 End: 08-07-2023 Tobacco use and exposure User of smokeless tobacco [facility] Start: 1965 Sex Assigned At Not on file [facility] Tobacco smoking status [facility] Tobacco smoking consumption unknown [facility] History of tobacco use Cigarette Smoker [facility] Start: 06-23-2023 Tobacco use and exposure Former smokeless tobacco user [facility] End: 06-07-2010 History of tobacco use Snuff User [facility] Start: 06-23-2023 End: 08-07-2023 Alcohol intake Current drinker of alcohol (finding) [facility] Start: 05-09-2020 End: 06-23-2023 Alcohol intake [facility] Start: 05-09-2020 End: 06-23-2023 Tobacco use panel [facility] National Score (1-100), lower number is lower risk Not on file [facility] Start: 04-13-2013 Alcohol Comment history of hea vier alcohol use [facility] Start: 1965 Sex Assigned At Male [facility] Start: 05-01-2020 End: 01-04-2025 Sex Male (finding) [facility] NEGATED: Highlighted rowStart: 03-12-2018 End: 03-12-2018 Alcohol intake Never smoker [facility] Work Phone: NEGATED: Highlighted rowStart: 03-12-2018 End: 03-12-2018 Alcohol use ETOH USE Yes [facility] Work Phone: NEGATED: Highlighted rowStart: 03-12-2018 End: 03-12-2018 Assertion Never smoker [facility] Work Phone: Medical Equipment Procedure Code Equipment Code Equipment Origin al Text Equipment Identifier Dates Mesh Srg Vntrlx 1.7x1.7in Umb - [id number] Start: 06-19-2011 Clinical Notes 08-20-2022 to 03-16-2025 Note Date & Type Note Facility 03-16-2025 Evaluation note Diagnosis Onset Date Resolution Acute bronchitis acute February 3:38pm Headache acute March 16, 2025 3:38pm [facility] Work Phone: [phone] NoteHNO ID: [id number] Author: Grisel Florence PA-C Service: ? Author Type: Physician [employer] Type: Progress Notes Filed: 08/19/2023 11:52 AM Note Text: FOLLOW UP VISIT - ENDOSCOPY NAME: Hubert Olmedo [facility] NO.: [id number] DATE OF SERVICE: 08/14/2023 : 1965 REFERRING PHYSICIAN: Ayo Mirza MD Hubert is a patient I am following for history of colon polyps and need for surveillance colonoscopy. Dr. Gallo performed lower endoscopy on 08/07/23. The patient was found to have hemorrhoids, as well as a small sigmoid colon which was removed. Pathology demonstrated: FINAL DIAGNOSIS Sigmoid, polypectomy: -Tubular adenoma The patient notes no complaints since the procedure. VITALS: Blood pressure 140/82, pulse 80, temperature 36.4 ?C (97.5 ?F), weight 113.8 kg (250 lb 12.8 oz), SpO2 97 %. General: patient is alert, cooperative, pleasant and in no acute distress On examination, the abdomen is benign. Assessment IMPRESSION: s/p colonoscopy with polypectomy PLAN: The operative findings and pathology report were reviewed with the patient, and the patient has had the opportunity to ask questions and have questions answered. If the patient notes any problems or changes in bowel function, the patient should contact me immediately. Otherwise I recommend follow up endoscopy in 5 years Patient verbalized understanding of all above and agreed with the plan Diagnoses: (Z86.010) History of colonic polyps (primary encounter diagnosis) (D36.9) Tubular adenoma I spent a total of 23 minutes on the date of the service which included preparing to see the patient, [id number] patient care, completing clinical documentation, obtaining and/or reviewing separately obtained history, counseling and educating the patient/family/caregiver, independently interpreting results (not separately reported), and communicating results to the patient/family/caregiver. [facility] Inst[facility]* Patient Instructions* Grisel Florence PA-C - 08/14/2023 9:24 AM EDT The following instructions are important for you related to your office visit today with the [facility]. INSTRUCTIONS FOLLOWING A POLYP FOUND AT COLONOSCOPY You were found to have an adenomatous colon polyp. I recommend you undergo repeat endoscopy in 5 years. If you note bleeding, change in bowel habits, or other suspicious colon related symptoms beforethat time, those symptoms should be evaluated as necessary. If you have any difficulties or concerns, you should contact our office immediately. If you note any additional difficulties, questions, or concerns, you should contact our office immediately @ [phone] and ask to be transferred to the General Surgery department. [facility] History of Present illness Narrative* Grisel Florence PA-C - 08/14/2023 9:13 AM EDT FOLLOW UP VISIT - ENDOSCOPY NAME: Hubert Olmedo [facility] NO.: [id number] DATE OF SERVICE: 08/14/2023 : 1965 REFERRING PHYSICIAN: Ayo Mirza MD Hubert is a patient I am following for history of colon polyps and need for surveillance colonoscopy. Dr. Gallo performed lower endoscopy on 08/07/23. The patient was found to have hemorrhoids, as well as a small sigmoid colon which was removed. Pathology demonstrated: FINAL DIAGNOSIS Sigmoid, polypectomy: -Tubular adenoma The patient notes no complaints since the procedure. VITALS: Blood pressure 140/82, pulse 80, temperature 36.4 C (97.5 F), weight 113.8 kg (250 lb 12.8 oz), SpO2 97 %. General: patient is alert, cooperative, pleasant and in no acute distress On examination, the abdomen is benign. Assessment IMPRESSION: s/p colonoscopy with polypectomy PLAN: The operative findings and pathology report were reviewed with the patient, and the patient has hadthe opportunity to ask questions and have questions answered. If the patient notes any problems or changes in bowel function, the patient should contact me immediately. Otherwise I recommend follow up endoscopy in 5 years Patient verbalized understanding of all above and agreed with the plan Diagnoses: (Z86.010) History of colonic polyps (primary encounter diagnosis) (D36.9) Tubular adenoma I spent a total of 23 minutes on the date of the service which included preparing to see the patient, [id number] patient care, completing clinical documentation, obtaining and/or reviewing separately obtained history, counseling and educating the patient/family/caregiver, independently interpretin g results (not separately reported), and communicating results to the patient/family/caregiver. Grisel Florence PA-C documented in [facility] [place] Nurse Note* Jaja Payne RN - 08/07/2023 10:48 AM EDT Arrived in phase II via cart. Left lateral position. Sedated, but responds to verbal stimuli. Colornormal; skin warm and dry. Respirations wnl and unlabored. Abdomen soft and with + bowel sounds in quads X 4. Patient resting comfortably. Jaja Payne RN documented in this [facility] [place] History and physical note * Neema Gallo MD - 08/07/2023 10:15 AM EDT UPDATED PROCEDURAL SEDATION HISTORY AND PHYSICAL EXAMINATION SERVICE DATE: 08/07/2023 SERVICE TIME: 9:42 PHYSICAL EXAM MUST BE COMPLETED ON ADMISSION PROCEDURE: colonoscopy, possible biopsies Procedure Indications: history of colon polyps The History and Physical (completed in the past 30 days) has been reviewed and the patient has beenexamined. The contents accurately reflect the patient's condition with the following additions or revisions since the H&P was completed. ASA Class: ASA Class:: Patient with mild systemic disease Examination indicates no changes. AIRWAY: Airway Visualization of Uvula: Yes Mouth opening greater than 2 fingerbreadths: Yes Neck Full Range of Motion: Yes LUNGS: Lungs clear to auscultation CARDIAC: Regular rhythm,Regular rate Provisional Diagnosis/Treatment Plan: colonoscopy, possible biopsies SEDATION GOAL: Moderate This H&P can be found in the Electronic Medical Record. SIGNATURE: Neema Gallo MD PATIENT NAME: Hubert Burris DATE: August 07, 2023 TIME: 9:43 AM Source Note - Neema Gallo MD - 08/07/2023 10:15 AM EDT HISTORY AND PHYSICAL Hubert Burris 1965 REFERRING PHYSICIAN: Ayo Mirza, * CHIEF COMPLAINT: Consult (Colonoscopy consult. ) HPI: The patient is a 58 year old male referred for endoscopy. Hubert notes no colon complaints. Patient denies any change in bowel habits, weight changes, blood in stools, black tarry stools or abdominal pain. Denies family history of colon issues. The patient notes no upper GI complaints. Hubert has undergone prior endoscopy. Last colonoscopy 06/17/[address] Gallo with removal of an adenomatous polyp, 5 year follow-up recommended. PAST MEDICAL HISTORY PAST MEDICAL HISTORY Diagnosis Date Dysmetabolic syndrome impaired fasting glucose History of hypertension Hyperlipidemia Tubular adenoma of colon 2017 PAST SURGICAL HISTORY PAST SURGICAL HISTORY Procedure Laterality Date COLONOSCOPY FLX DX W/COLLJ SPEC WHEN PFRMD 06/17/2018 Colonoscopy FOOT/TOES SURGERY PROC UNLISTED 08/2012 left great toe fusion PRO TENNIS ELBOW STRAP 2001 left side RPR UMBILICAL HRNA 5 YRS/> REDUCIBLE 06/19/11 Hernia repair, umbilical with mesh SHOULDER ARTHROSCOPY/SURGERY 2006 & 2008 both shoulders CURRENT MEDICATIONS Current Outpatient Medications Medication Sig allopurinol (ZYLOPRIM) 300 mg tablet Take 1 tablet by mouth once daily. predniSONE (DELTASONE) 5 mg tablet take 4 tablets by mouth daily for 3 days then 2 for 3 days then 1 for 4 days (Patient not taking: Reported on 04/23/2022) colchicine (COLCRYS) 0.6 mg tablet Take 1 tablet by mouth once daily. (Patient not taking: Reportedon 04/23/2022 ) allopurinol (ZYLOPRIM) 300 mg tablet Take 300 mg by mouth once daily. (Patient not taking: Reportedon 10/04/2021 ) sildenafil (VIAGRA) 100 mg tablet Take 30 min to 1 hour before sexual activity. (Patient not taking: Reported on 10/04/2021 ) No current facility-administered medications for this visit. ALLERGIES: Chantix [Varenicline], Lexapro [Escitalopram], and Symbicort [Budesonide-Formoterol] PERSONAL HISTORY: SOCIAL HISTORY Social History Tobacco Use Smoking status: Never Smokeless tobacco: Former Types: Snuff Quit date: 06/07/2010 Vaping Use Vaping Use: Never used Substance Use Topics Alcohol use: Yes Alcohol/week: 15.0 standard drinks of alcohol Types: 6 Cans of Beer (12oz) per week Comment: history of heavier alcohol use Drug use: No FAMILY HISTORY: FAMILY HISTORY FAMILY HISTORY Problem Relation Age of Onset Ischemic Heart Disease Mother CABG ~69yo other (HODGKINS DISEASE) Father REVIEW OF SYMPTOMS: The review of systems data was entered by the nurse and reviewed by ar Nursing Notes: Akua Reddy RN 06/23/2023 8:28 AM Signed REVIEW OF SYSTEMS: General: The patient denies fatigue, denies weight loss, denies weight gain, denies feeling hot, and denies feelings of cold. Eyes: The patient denies glaucoma, denies eye injury/surgery, does not wear glasses or contacts. Ear/Nose/Throat: The patient NOTES allergies, denies hayfever, denies ear infections, and denies bloody noses. Cardiovascular: The patient denies chest pain, denies heart disease, NOTES high blood pressure,denies cardiac stent, denies prior heart attack, denies irregular heart beat, NOTES high cholesterol, denies poor circulation, denies heart failure, other cardiac issues, denies claudication, denies cold feet, denies peripheral arterial stent. Respiratory: The patient denies tuberculosis, denies pneumonia, denies frequent cough, denies pulmonary embolism, denies shortness of breath, and denies coughing up blood. Gastrointestinal: The patient denies difficulty swallowing, denies acid reflux, denies ulcers, denies vomiting, denies jaundice/hepatitis, denies gallbladder problems, denies black or tarry stools, denies hemorrhoids, denies bleeding from rectum, denies diverticulitis, denies constipation, denies diarrhea, denies loss of stool control, and denies hernias. Kidney/Bladder: The patient denies kidney stones, denies urine infections, and denies bloody urine. Skin: The patient denies a history of skin cancer, denies bleeding/changing moles, and denies a history of skin rash. Neurologic: The patient denies a history of epilepsy/convulsions, denies headaches, denies head/spinal injuries, and denies stroke/TIA. Psychiatric: The patient denies psychiatric medications, denies depression, and denies voices, denies substance abuse. Endocrine: The patient denies thyroid disorders, denies diabetes, and denies hormonal problems. Hematologic: The patient denies a history of bruising, denies bleeding, and denies anemia, denies blood clots. Infections: The patient denies a history of measles and mumps, denies rheumatic fever, and denies sexually transmitted diseases. Musculoskeletal: The patient denies back pain/injury, denies back problems, denies sciatica, deniesknee/foot trouble, denies arthritis, or NOTES gout. When was patient's last Mammogram screening? N/A Last Colonoscopy: 2018 Akua Reddy RN I have confirmed and edited as necessary, the PFSH and ROS obtained by others. Grisel Florence PA-C PHYSICAL EXAMINATION: General: The patient is 58 year old male, well nourished, well hydrated in no acute distress. The patient is oriented to time, place, and person. VITALS: Blood pressure 122/80, pulse 96, temperature 37 C (98.6 F), height 177.8 cm (5' 10), weight 112.7 kg (248 lb 6.4 oz), SpO2 99 %. Body mass index is 35.64 kg/m . HEENT: Normal cephalic, ataumatic, pupils are equally round, sclera are anicteric, mucous membranesare moist, oropharynx is clear. Neck has no masses, asymmetry or lymphadenopathy. Respiratory: Clear to auscultation and percussion. Normal respiratory excursion and pattern. Cardiac: Examination is regular rate and rhythm. Normal S1/S2 Abdominal exam: Soft, nontender, with no palpable masses. No hepatosplenomegaly. No palpable hernias. Extremities: no clubbing, cyanosis or edema. No adenopathy. LABORATORY VALUES: As Noted RADIOLOGIC STUDIES: As Noted Assessment IMPRESSION: encounter for high-risk surveillance colonoscopy, personal history of polyps PLAN: I have reviewed my findings with the surgeon. Will plan for lower endoscopy. We discussed therisks and benefits of the planned endoscopy. I have informed the patient that complications can occur including failure to complete the endoscopy and perforation. The patient had the opportunity to ask questions concerning the planned endoscopy. My staff has also explained the procedure to the patient in understandable terms and has given the patient printed material concerning the procedure. Thepatient freely consents to surgery. I plan to use Golytely bowel preparation I have explained to the patient the difference between IV conscious sedation and MAC anesthesia - and I have offered either, according to the patient's wishes. I have explained that with IV conscioussedation there is no anesthesia provider available and therefore there is a limitation of the amount of IV medications that can be given and that the patient may wake up in the middle of the procedure and/or experience pain/discomfort during the procedure. Further discussion was done and the patient was given the opportunity to ask questions and all questions were answered. The patient chooses IVconscious sedation. Current med list shows lorazepam, per patient this is not something he takes reg ularly Diagnoses: (Z86.010) History of colonic polyps (primary encounter diagnosis) Consultation requested by Dr. Mirza for an opinion regarding screening colonoscopy. My final recommendations will be communicated back to the requesting physician by way of shared Medical record or letter to requesting physician via US mail. Grisel Florence PA-C * Neema Gallo MD - 08/07/2023 10:15 AM EDT HISTORY AND PHYSICAL Hubert Burris 1965 REFERRING PHYSICIAN: Ayo Mirza, * CHIEF COMPLAINT: Consult (Colonoscopy consult. ) HPI: The patient is a 58 year old male referred for endoscopy. Hubert notes no colon complaints. Patient denies any change in bowel habits, weight changes, blood in stools, black tarry stools or abdominal pain. Denies family history of colon issues. The patient notes no upper GI complaints. Hubert has undergone prior endoscopy. Last colonoscopy 06/17/[address] Gallo with removal of an adenomatous polyp, 5 year follow-up recommended. PAST MEDICAL HISTORY PAST MEDICAL HISTORY Diagnosis Date Dysmetabolic syndrome impaired fasting glucose History of hypertension Hyperlipidemia Tubular adenoma of colon 2017 PAST SURGICAL HISTORY PAST SURGICAL HISTORY Procedure Laterality Date COLONOSCOPY FLX DX W/COLLJ SPEC WHEN PFRMD 06/17/2018 Colonoscopy FOOT/TOES SURGERY PROC UNLISTED 08/2012 left great toe fusion PRO TENNIS ELBOW STRAP 2001 left side RPR UMBILICAL HRNA 5 YRS/> REDUCIBLE 06/19/11 Hernia repair, umbilical with mesh SHOULDER ARTHROSCOPY/SURGERY 2006 & 2008 both shoulders CURRENT MEDICATIONS Current Outpatient Medications Medication Sig allopurinol (ZYLOPRIM) 300 mg tablet Take 1 tablet by mouth once daily. predniSONE (DELTASONE) 5 mg tablet take 4 tablets by mouth daily for 3 days then 2 for 3 days then 1 for 4 days (Patient not taking: Reported on 04/23/2022) colchicine (COLCRYS) 0.6 mg tablet Take 1 tablet by mouth once daily. (Patient not taking: Reportedon 04/23/2022 ) allopurinol (ZYLOPRIM) 300 mg tablet Take 300 mg by mouth once daily. (Patient not taking: Reportedon 10/04/2021 ) sildenafil (VIAGRA) 100 mg tablet Take 30 min to 1 hour before sexual activity. (Patient not taking: Reported on 10/04/2021 ) No current facility-administered medications for this visit. ALLERGIES: Chantix [Varenicline], Lexapro [Escitalopram], and Symbicort [Budesonide-Formoterol] PERSONAL HISTORY: SOCIAL HISTORY Social History Tobacco Use Smoking status: Never Smokeless tobacco: Former Types: Snuff Quit date: 06/07/2010 Vaping Use Vaping Use: Never used Substance Use Topics Alcohol use: Yes Alcohol/week: 15.0 standard drinks of alcohol Types: 6 Cans of Beer (12oz) per week Comment: history of heavier alcohol use Drug use: No FAMILY HISTORY: FAMILY HISTORY FAMILY HISTORY Problem Relation Age of Onset Ischemic Heart Disease Mother CABG ~69yo other (HODGKINS DISEASE) Father REVIEW OF SYMPTOMS: The review of systems data was entered by the nurse and reviewed by me Nursing Notes: Akua Reddy RN 06/23/2023 8:28 AM Signed REVIEW OF SYSTEMS: General: The patient denies fatigue, denies weight loss, denies weight gain, denies feeling hot, and denies feelings of cold. Eyes: The patient denies glaucoma, denies eye injury/surgery, does not wear glasses or contacts. Ear/Nose/Throat: The patient NOTES allergies, denies hayfever, denies ear infections, and denies bloody noses. Cardiovascular: The patient denies chest pain, denies heart disease, NOTES high blood pressure,denies cardiac stent, denies prior heart attack, denies irregular heart beat, NOTES high cholesterol, denies poor circulation, denies heart failure, other cardiac issues, denies claudication, denies cold feet, denies peripheral arterial stent. Respiratory: The patient denies tuberculosis, denies pneumonia, denies frequent cough, denies pulmonary embolism, denies shortness of breath, and denies coughing up blood. Gastrointestinal: The patient denies difficulty swallowing, denies acid reflux, denies ulcers, denies vomiting, denies jaundice/hepatitis, denies gallbladder problems, denies black or tarry stools, denies hemorrhoids, denies bleeding from rectum, denies diverticulitis, denies constipation, denies diarrhea, denies loss of stool control, and denies hernias. Kidney/Bladder: The patient denies kidney stones, denies urine infections, and denies bloody urine. Skin: The patient denies a history of skin cancer, denies bleeding/changing moles, and denies a history of skin rash. Neurologic: The patient denies a history of epilepsy/convulsions, denies headaches, denies head/spinal injuries, and denies stroke/TIA. Psychiatric: The patient denies psychiatric medications, denies depression, and denies voices, denies substance abuse. Endocrine: The patient denies thyroid disorders, denies diabetes, and denies hormonal problems. Hematologic: The patient denies a history of bruising, denies bleeding, and denies anemia, denies blood clots. Infections: The patient denies a history of measles and mumps, denies rheumatic fever, and denies sexually transmitted diseases. Musculoskeletal: The patient denies back pain/injury, denies back problems, denies sciatica, deniesknee/foot trouble, denies arthritis, or NOTES gout. When was patient's last Mammogram screening? N/A Last Colonoscopy: 2018 Akua Reddy RN I have confirmed and edited as necessary, the PFSH and ROS obtained by others. Grisel Florence PA-C PHYSICAL EXAMINATION: General: The patient is 58 year old male, well nourished, well hydrated in no acute distress. The patient is oriented to time, place, and person. VITALS: Blood pressure 122/80, pulse 96, temperature 37 C (98.6 F), height 177.8 cm (5' 10), weight 112.7 kg (248 lb 6.4 oz), SpO2 99 %. Body mass index is 35.64 kg/m . HEENT: Normal cephalic, ataumatic, pupils are equally round, sclera are anicteric, mucous membranesare moist, oropharynx is clear. Neck has no masses, asymmetry or lymphadenopathy. Respiratory: Clear to auscultation and percussion. Normal respiratory excursion and pattern. Cardiac: Examination is regular rate and rhythm. Normal S1/S2 Abdominal exam: Soft, nontender, with no palpable masses. No hepatosplenomegaly. No palpable hernias. Extremities: no clubbing, cyanosis or edema. No adenopathy. LABORATORY VALUES: As Noted RADIOLOGIC STUDIES: As Noted Assessment IMPRESSION: encounter for high-risk surveillance colonoscopy, personal history of polyps PLAN: I have reviewed my findings with the surgeon. Will plan for lower endoscopy. We discussed therisks and benefits of the planned endoscopy. I have informed the patient that complications can occur including failure to complete the endoscopy and perforation. The patient had the opportunity to ask questions concerning the planned endoscopy. My staff has also explained the procedure to the patient in understandable terms and has given the patient printed material concerning the procedure. Thepatient freely consents to surgery. I plan to use Golytely bowel preparation I have explained to the patient the difference between IV conscious sedation and MAC anesthesia - and I have offered either, according to the patient's wishes. I have explained that with IV conscioussedation there is no anesthesia provider available and therefore there is a limitation of the amount of IV medications that can be given and that the patient may wake up in the middle of the procedure and/or experience pain/discomfort during the procedure. Further discussion was done and the patient was given the opportunity to ask questions and all questions were answered. The patient chooses IVconscious sedation. Current med list shows lorazepam, per patient this is not something he takes reg ularly Diagnoses: (Z86.010) History of colonic polyps (primary encounter diagnosis) Consultation requested by Dr. Mirza for an opinion regarding screening colonoscopy. My final recommendations will be communicated back to the requesting physician by way of shared Medical record or letter to requesting physician via US mail. Grisel Florence PA-C documented in this encounter[facility] [place] NoteHNO ID: [id number] Author: Grisel Florence PA-C Service: ? Author Type: Physician [employer]ader Type: Progress Notes Filed: 06/23/2023 9:05 AM Note Text: HISTORY AND PHYSICAL Hubert Burris 1965 REFERRING PHYSICIAN: Ayo Mirza, * CHIEF COMPLAINT: Consult (Colonoscopy consult. ) HPI: The patient is a 58 year old male referred for endoscopy. Hubert notes no colon complaints. Patient denies any change in bowel habits, weight changes, blood in stools, black tarry stools or abdominal pain. Denies family history of colon issues. The patient notes no upper GI complaints. Hubert has undergone prior endoscopy. Last colonoscopy 06/17/[address] Gallo with removal of an adenomatous polyp, 5 year follow-up recommended. PAST MEDICAL HISTORY Diagnosis Date Dysmetabolic syndrome impaired fasting glucose History of hypertension Hyperlipidemia Tubular adenoma of colon 2017 PAST SURGICAL HISTORY Procedure Laterality Date COLONOSCOPY FLX DX W/COLLJ SPEC WHEN PFRMD 06/17/2018 Colonoscopy FOOT/TOES SURGERY PROC UNLISTED 08/2012 left great toe fusion PRO TENNIS ELBOW STRAP 2002 left side RPR UMBILICAL HRNA 5 YRS/> REDUCIBLE 06/19/11 Hernia repair, umbilical with mesh SHOULDER ARTHROSCOPY/SURGERY 2006 AND 2008 both shoulders Current Outpatient Medications Medication Sig allopurinol (ZYLOPRIM) 300 mg tablet Take 1 tablet by mouth once daily. predniSONE (DELTASONE) 5 mg tablet take 4 tablets by mouth daily for 3 days then 2 for 3 days then 1 for 4 days (Patient not taking: Reported on 04/23/2022) colchicine (COLCRYS) 0.6 mg tablet Take 1 tablet by mouth once daily. (Patient not taking: Reported on 04/23/2022 ) allopurinol (ZYLOPRIM) 300 mg tablet Take 300 mg by mouth once daily. (Patient not taking: Reported on 10/04/2021 ) sildenafil (VIAGRA) 100 mg tablet Take 30 min to 1 hour before sexual activity. (Patient not taking: Reported on 10/04/2021 ) No current facility-administered medications for this visit. ALLERGIES: Chantix [Varenicline], Lexapro [Escitalopram], and Symbicort [Budesonide-Formoterol] PERSONAL HISTORY: Social History Tobacco Use Smoking status: Never Smokeless tobacco: Former Types: Snuff Quit date: 06/07/2010 Vaping Use Vaping Use: Never used Substance Use Topics Alcohol use: Yes Alcohol/week: 15.0 standard drinks of alcohol Types: 6 Cans of Beer (12oz) per week Comment: history of heavier alcohol use Drug use: No FAMILY HISTORY: FAMILY HISTORY Problem Relation Age of Onset Ischemic Heart Disease Mother CABG ~69yo other (HODGKINS DISEASE) Father REVIEW OF SYMPTOMS: The review of systems data was entered by the nurse and reviewed by ar Nursing Notes: Akua Reddy RN 06/23/2023 8:28 AM Signed REVIEW OF SYSTEMS: General: The patient denies fatigue, denies weight loss, denies weight gain, denies feeling hot, and denies feelings of cold. Eyes: The patient denies glaucoma, denies eye injury/surgery, does not wear glasses or contacts. Ear/Nose/Throat: The patient NOTES allergies, denies hayfever, denies ear infections, and denies bloody noses. Cardiovascular: The patient denies chest pain, denies heart disease, NOTES high blood pressure,denies cardiac stent, denies prior heart attack, denies irregular heart beat, NOTES high cholesterol, denies poor circulation, denies heart failure, other cardiac issues, denies claudication, denies cold feet, denies peripheral arterial stent. Respiratory: The patient denies tuberculosis, denies pneumonia, denies frequent cough, denies pulmonary embolism, denies shortness of breath, and denies coughing up blood. Gastrointestinal: The patient denies difficulty swallowing, denies acid reflux, denies ulcers, denies vomiting, denies jaundice/hepatitis, denies gallbladder problems, denies black or tarry stools, denies hemorrhoids, denies bleeding from rectum, denies diverticulitis, denies constipation, denies diarrhea, denies loss of stool control, and denies hernias. Kidney/Bladder: The patient denies kidney stones, denies urine infections, and denies bloody urine. Skin: The patient denies a history of skin cancer, denies bleeding/changing moles, and denies a history of skin rash. Neurologic: The patient denies a history of epilepsy/convulsions, denies headaches, denies head/spinal injuries, and denies stroke/TIA. Psychiatric: The patient denies psychiatric medications, denies depression, and denies voices, denies substance abuse. Endocrine: The patient denies thyroid disorders, denies diabetes, and denies hormonal problems. Hematologic: The patient denies a history of bruising, denies bleeding, and denies anemia, denies blood clots. Infections: The patient denies a history of measles and mumps, denies rheumatic fever, and denies sexually transmitted diseases. Musculoskeletal: The patient denies back pain/injury, denies back problems, denies sciatica (more content not included)...[facility]08-29-2023 Nurse Note* Akua Reddy RN - 06/23/2023 8:26 AM EDT REVIEW OF SYSTEMS: General: The patient denies fatigue, denies weight loss, denies weight gain, denies feeling hot, and denies feelings of cold. Eyes: The patient denies glaucoma, denies eye injury/surgery, does not wear glasses or contacts. Ear/Nose/Throat: The patient NOTES allergies, denies hayfever, denies ear infections, and denies bloody noses. Cardiovascular: The patient denies chest pain, denies heart disease, NOTES high blood pressure,denies cardiac stent, denies prior heart attack, denies irregular heart beat, NOTES high cholesterol, denies poor circulation, denies heart failure, other cardiac issues, denies claudication, denies cold feet, denies peripheral arterial stent. Respiratory: The patient denies tuberculosis, denies pneumonia, denies frequent cough, denies pulmonary embolism, denies shortness of breath, and denies coughing up blood. Gastrointestinal: The patient denies difficulty swallowing, denies acid reflux, denies ulcers, denies vomiting, denies jaundice/hepatitis, denies gallbladder problems, denies black or tarry stools, denies hemorrhoids, denies bleeding from rectum, denies diverticulitis, denies constipation, denies diarrhea, denies loss of stool control, and denies hernias. Kidney/Bladder: The patient denies kidney stones, denies urine infections, and denies bloody urine. Skin: The patient denies a history of skin cancer, denies bleeding/changing moles, and denies a history of skin rash. Neurologic: The patient denies a history of epilepsy/convulsions, denies headaches, denies head/spinal injuries, and denies stroke/TIA. Psychiatric: The patient denies psychiatric medications, denies depression, and denies voices, denies substance abuse. Endocrine: The patient denies thyroid disorders, denies diabetes, and denies hormonal problems. Hematologic: The patient denies a history of bruising, denies bleeding, and denies anemia, denies blood clots. Infections: The patient denies a history of measles and mumps, denies rheumatic fever, and denies sexually transmitted diseases. Musculoskeletal: The patient denies back pain/injury, denies back problems, denies sciatica, deniesknee/foot trouble, denies arthritis, or NOTES gout. When was patient's last Mammogram screening? N/A Last Colonoscopy: 2017 Akua Reddy RN documented in this encounterSelect [facility] [place] History of Present illness Narrative* Grisel Florence PA-C - 06/23/2023 8:23 AM EDT HISTORY AND PHYSICAL Hubert Burris 1965 REFERRING PHYSICIAN: Ayo Mirza, * CHIEF COMPLAINT: Consult (Colonoscopy consult. ) HPI: The patient is a 58 year old male referred for endoscopy. Hubert notes no colon complaints. Patient denies any change in bowel habits, weight changes, blood in stools, black tarry stools or abdominal pain. Denies family history of colon issues. The patient notes no upper GI complaints. Hubert has undergone prior endoscopy. Last colonoscopy 06/17/[address] Gallo with removal of an adenomatous polyp, 5 year follow-up recommended. PAST MEDICAL HISTORY Diagnosis Date Dysmetabolic syndrome impaired fasting glucose History of hypertension Hyperlipidemia Tubular adenoma of colon 2017 PAST SURGICAL HISTORY Procedure Laterality Date COLONOSCOPY FLX DX W/COLLJ SPEC WHEN PFRMD 06/17/2018 Colonoscopy FOOT/TOES SURGERY PROC UNLISTED 08/2012 left great toe fusion PRO TENNIS ELBOW STRAP 2001 left side RPR UMBILICAL HRNA 5 YRS/> REDUCIBLE 06/19/11 Hernia repair, umbilical with mesh SHOULDER ARTHROSCOPY/SURGERY 2006 & 2008 both shoulders Current Outpatient Medications Medication Sig allopurinol (ZYLOPRIM) 300 mg tablet Take 1 tablet by mouth once daily. predniSONE (DELTASONE) 5 mg tablet take 4 tablets by mouth daily for 3 days then 2 for 3 days then 1 for 4 days (Patient not taking: Reported on 04/23/2022) colchicine (COLCRYS) 0.6 mg tablet Take 1 tablet by mouth once daily. (Patient not taking: Reportedon 04/23/2022 ) allopurinol (ZYLOPRIM) 300 mg tablet Take 300 mg by mouth once daily. (Patient not taking: Reportedon 10/04/2021 ) sildenafil (VIAGRA) 100 mg tablet Take 30 min to 1 hour before sexual activity. (Patient not taking: Reported on 10/04/2021 ) No current facility-administered medications for this visit. ALLERGIES: Chantix [Varenicline], Lexapro [Escitalopram], and Symbicort [Budesonide-Formoterol] PERSONAL HISTORY: Social History Tobacco Use Smoking status: Never Smokeless tobacco: Former Types: Snuff Quit date: 06/07/2010 Vaping Use Vaping Use: Never used Substance Use Topics Alcohol use: Yes Alcohol/week: 15.0 standard drinks of alcohol Types: 6 Cans of Beer (12oz) per week Comment: history of heavier alcohol use Drug use: No FAMILY HISTORY: FAMILY HISTORY Problem Relation Age of Onset Ischemic Heart Disease Mother CABG ~69yo other (HODGKINS DISEASE) Father REVIEW OF SYMPTOMS: The review of systems data was entered by the nurse and reviewed by me Nursing Notes: Akua Reddy RN 06/23/2023 8:28 AM Signed REVIEW OF SYSTEMS: General: The patient denies fatigue, denies weight loss, denies weight gain, denies feeling hot, and denies feelings of cold. Eyes: The patient denies glaucoma, denies eye injury/surgery, does not wear glasses or contacts. Ear/Nose/Throat: The patient NOTES allergies, denies hayfever, denies ear infections, and denies bloody noses. Cardiovascular: The patient denies chest pain, denies heart disease, NOTES high blood pressure,denies cardiac stent, denies prior heart attack, denies irregular heart beat, NOTES high cholesterol, denies poor circulation, denies heart failure, other cardiac issues, denies claudication, denies cold feet, denies peripheral arterial stent. Respiratory: The patient denies tuberculosis, denies pneumonia, denies frequent cough, denies pulmonary embolism, denies shortness of breath, and denies coughing up blood. Gastrointestinal: The patient denies difficulty swallowing, denies acid reflux, denies ulcers, denies vomiting, denies jaundice/hepatitis, denies gallbladder problems, denies black or tarry stools, denies hemorrhoids, denies bleeding from rectum, denies diverticulitis, denies constipation, denies diarrhea, denies loss of stool control, and denies hernias. Kidney/Bladder: The patient denies kidney stones, denies urine infections, and denies bloody urine. Skin: The patient denies a history of skin cancer, denies bleeding/changing moles, and denies a history of skin rash. Neurologic: The patient denies a history of epilepsy/convulsions, denies headaches, denies head/spinal injuries, and denies stroke/TIA. Psychiatric: The patient denies psychiatric medications, denies depression, and denies voices, denies substance abuse. Endocrine: The patient denies thyroid disorders, denies diabetes, and denies hormonal problems. Hematologic: The patient denies a history of bruising, denies bleeding, and denies anemia, denies blood clots. Infections: The patient denies a history of measles and mumps, denies rheumatic fever, and denies sexually transmitted diseases. Musculoskeletal: The patient denies back pain/injury, denies back problems, denies sciatica, deniesknee/foot trouble, denies arthritis, or NOTES gout. When was patient's last Mammogram screening? N/A Last Colonoscopy: 2018 Akua Reddy RN I have confirmed and edited as necessary, the PFSH and ROS obtained by others. Grisel Florence PA-C PHYSICAL EXAMINATION: General: The patient is 58 year old male, well nourished, well hydrated in no acute distress. The patient is oriented to time, place, and person. VITALS: Blood pressure 122/80, pulse 96, temperature 37 C (98.6 F), height 177.8 cm (5' 10), weight 112.7 kg (248 lb 6.4 oz), SpO2 99 %. Body mass index is 35.64 kg/m . HEENT: Normal cephalic, ataumatic, pupils are equally round, sclera are anicteric, mucous membranesare moist, oropharynx is clear. Neck has no masses, asymmetry or lymphadenopathy. Respiratory: Clear to auscultation and percussion. Normal respiratory excursion and pattern. Cardiac: Examination is regular rate and rhythm. Normal S1/S2 Abdominal exam: Soft, nontender, with no palpable masses. No hepatosplenomegaly. No palpable hernias. Extremities: no clubbing, cyanosis or edema. No adenopathy. LABORATORY VALUES: As Noted RADIOLOGIC STUDIES: As Noted Assessment IMPRESSION: encounter for high-risk surveillance colonoscopy, personal history of polyps PLAN: I have reviewed my findings with the surgeon. Will plan for lower endoscopy. We discussed therisks and benefits of the planned endoscopy. I have informed the patient that complications can occur including failure to complete the endoscopy and perforation. The patient had the opportunity to ask questions concerning the planned endoscopy. My staff has also explained the procedure to the patient in understandable terms and has given the patient printed material concerning the procedure. Thepatient freely consents to surgery. I plan to use Golytely bowel preparation I have explained to the patient the difference between IV conscious sedation and MAC anesthesia - and I have offered either, according to the patient's wishes. I have explained that with IV conscioussedation there is no anesthesia provider available and therefore there is a limitation of the amount of IV medications that can be given and that the patient may wake up in the middle of the procedure and/or experience pain/discomfort during the procedure. Further discussion was done and the patient was given the opportunity to ask questions and all questions were answered. The patient chooses IVconscious sedation. Current med list shows lorazepam, per patient this is not something he takes reg ularly Diagnoses: (Z86.010) History of colonic polyps (primary encounter diagnosis) Consultation requested by Dr. Mirza for an opinion regarding screening colonoscopy. My final recommendations will be communicated back to the requesting physician by way of shared Medical record or letter to requesting physician via [place] mail. Grisel Florence PA-C documented in this encounterSelect [facility] [place] Telephone encounter Note * Telephone Encounter - Jessi Boothe - 01/06/2023 12:35 PM EDT Patient has no work up, or prior imaging. Please schedule SM. [id number] Miscellaneous Notes* Telephone Encounter - Jessi Boothe - 01/06/2023 12:35 PM EDT Patient has no work up, or prior imaging. Please schedule SM. * Telephone Encounter - Marina Parker - 01/06/2023 12:26 PM EDT Name of Caller: Hubert Contact Reason for Appointment: We received a web request for Hubert, he was requesting an apt with Dr. Davidson for severe hip pain. I attempted top call him and left him a voicemail with a number to the office and responded to his email. Office Name: Ortho Web Request Info: FirstName : Carlos LastName : Fatuma Pronouns : PronounsOther : Email : [email or web address] Phone : [phone] Birthdate : 1965 12:00:00 AM BestTimeToCallBack : any AppointmentDate : [facility] PhysicianRequested : OSVALDO DAVIDSON MD Symptoms : Severe hip pain OptIn : False documented in this encounterSSCCI Hospital [id number] Telephone encounter Note* Telephone Encounter - Marina Keith - 01/06/2023 12:26 PM EDT Name of Caller: Hubert Contact Reason for Appointment: We received a web request for Hubert, he was requesting an apt with Dr. Davidson for severe hip pain. I attempted top call him and left him a voicemail with a number to the office and responded to his email. Office Name: Ortho Web Request Info: FirstName : Carlos LastName : Fatuma Pronouns : PronounsOther : Email : [email or web address] Phone : [phone] Birthdate : 1965 12:00:00 AM BestTimeToCallBack : any AppointmentDate : [facility] PhysicianRequested : OSVALDO DAVIDSON MD Symptoms : Severe hip pain OptIn : False [id number] NoteI don't see a referral. I didn't refer him anywhere. I asked him to see if his primary care doc could take over rx for his medicine or else he has to see me back (he's not seen me in 2+ years). Can you call patient and ask about this? Who is this doctor, if he wants last notes sent, then I think it's ok to fax them. If she is a primary care doc, she doesn't need a referral from me.[employer] [place] [id number] Telephone encounter Note* Telephone Encounter - Rui Espinosa - 08/29/2022 11:22 AM EDT Left vm msg. Please complete medical release form for MH. Form will need to be scanned in media andthen faxed over to medical records. [id number] Miscellaneous Notes* Telephone Encounter - Rui Espinosa - 08/29/2022 11:22 AM EDT Left vm msg. Please complete medical release form for MH. Form will need to be scanned in media andthen faxed over to medical records. * Telephone Encounter - Misty Man LPN - 08/20/2022 10:21 AM EDT Most recent visit in Rheumatology was on 05/09/2020 with Marina Mandujano MD * Telephone Encounter - Misty Man LPN - 08/20/2022 10:21 AM EDTFrom: Hubert Olmedo Fatuma To: Marina Mandujano MD Sent: 08/20/2022 6:29 AM EDT Subject: Allopurinol I am on my last refill for Allopurinol. Should I be scheduling an appointment for follow up or willnew script be able to be sent? Seems to be working very well after a rough start. Thank You documented in this [id number] Telephone encounter Note* Telephone Encounter - Misty Man LPN - 08/20/2022 10:21 AM EDT Most recent visit in Rheumatology was on 05/09/2020 with Marina Mandujano MD [facility] Work Phone: [phone] 431-795510-26-2022 Telephone encounter Note* Telephone Encounter - Misty Man LPN - 08/20/2022 10:21 AM EDTFrom: Hubert Burris To: Marina Mandujano MD Sent: 08/20/2022 6:29 AM EDT Subject: Allopurinol I am on my last refill for Allopurinol. Should I be scheduling an appointment for follow up or willnew script be able to be sent? Seems to be working very well after a rough start. [facility] History of colonic polyps- Primary Personal history of colonic polyps documented in this encounter [facility] note* Diagnosis History of colonic polyps- Primary Personal history of colonic polyps Tubular adenoma Benign neoplasm of unspecified site documented in this encounter [facility] note* Diagnosis Screening for colon cancer- Primary Special screening for malignant neoplasms, colon History of colonic polyps Personal history of colonic polyps documented in this encounter [facility] noteNo assessment information availableWTriHealth [facility] Work Phone: Reason for referral (narrative)* Outpatient Procedure (Routine) - Closed Specialty Diagnoses / Procedures Referred By Marychuy t Referred To Contact [facility] Diagnoses History of colonic polyps Procedures COLONOSCOPY SCREENING COLONOSCOPY FLX DX W/COLLJ SPEC WHEN PFRMD Grisel Florence PA-C [address] [place] [address] [facility] [address] [place] [id number] Referral ID Status Reason Start Date Expiration Date V isits Requested Visits Authorized [id number] Closed Auto-Generate d Referral 06/23/2023 06/23/2024 1 1 [facility] for referral (narrative)No reason for referral information availableWTriHealth [facility] Work Phone: Reason for visit Narrative* Outpatient Procedure (Routine) - Closed Specialty Diagnoses / Procedures Referred By Contac t Referred To Contact [facility] Diagnoses History of colonic polyps Procedures COLONOSCOPY SCREENING COLONOSCOPY FLX DX W/COLLJ SPEC WHEN PFRMD Grisel Florence PA-C [address] [place] [address] [facility] [address] [place] [address] Referral ID Status Reason Start Date Expiration Date V isits Requested Visits Authorized [id number] Closed Auto-Generate d Referral 06/23/2023 06/23/2024 1 1 [facility] Instructions Instruction Description Start Date Please follow-up with Primar y Care Physician or Owner Manager for treatment or adjustment of medication regarding elevated blood pressure.Patient advised to follow-up with Primary Care Physician for BMI management. Advance Directives There may be information available, but it has not been provided by the sender. No Advanced Directives Records FoundNo Advanced Directives Records FoundNo Advanced Directives Records FoundNo Advanced Directives Records FoundNo Advanced Directives Records FoundNo Advanced Directives Records FoundNo Advanced Directives Records Found Assessments There may be information available, but it has not been provided by the sender. Review of System There may be information available, but it has not been provided by the sender. Family History No Family History Records Found Relationship Condition Age at Onset Recorded Date/T jose rafael father Malignant neoplasm Unknown Relationship Condition Age at Onset Recorded Date/T jose rafael father Malignant neoplasm Unknown mother Dementia Unknown Summary Purpose Medications Administered Section Inactive Administered Medications - up to 3 most recent administrations Medication Order MAR Action Action Date Dose Rate Site diphenhydrAMINE 12.5-50 mg injection (BENADRYL) 12.5-50 mg, INTRAVENOUS, DIRECTED, Starting on Thu08/07/23 at 1030, Until Thu08/07/23 at 1429, DOSING DIRECTED BY PHYSICIAN FOR PROCEDURAL SEDATION ONLY, Intraprocedure Given 08/07/2023 10:24 AM EDT 50 mg fentaNYL 50 mcg/mL 25-100 mcg injection (SUBLIMAZE) 25-100 mcg, INTRAVENOUS, DIRECTED, Starting on Thu08/07/23 at 1030, Until Thu08/07/23 at 1429, DOSING DIRECTED BY PHYSICIAN FOR PROCEDURAL SEDATION ONLY, Intraprocedure Given 08/07/2023 10:30 AM EDT 50 mcg Given 08/07/2023 10:22 AM EDT 50 mcg lactated ringers iv infusion 75 mL/hr, INTRAVENOUS, CONTINUOUS, Starting on Thu08/07/23 at 1000, Until Thu08/07/23 at 1058, Preprocedure New Bag/Syringe/Bottle 08/07/2023 9:49 AM EDT 75 mL/hr 75 mL/hr midazolam 1-5 mg injection (VERSED) 1-5 mg, INTRAVENOUS, DIRECTED, Starting on Thu08/07/23 at 1030, Until Thu08/07/23 at 1429, DOSING DIRECTED BY PHYSICIAN FOR PROCEDURAL SEDATION ONLY, Intraprocedure Given 08/07/2023 10:26 AM EDT 2 mg Given 08/07/2023 10:22 AM EDT 3 mg Chief Complaint and Reason for Visit Chief Complaint PAIN IN RIGHT ELBOW, SPRAIN. RX HERE Chief Complaint Admit Date CONGESTION IN CHEST / COUGH March 16 3:38pm Reason for Visit Admit Date Acute bronchitis March 16, 2025 3:38p m Headache March 16, 2025 3:38p m Additional Source Comments (unrecognized sect ion and content) No Status Records FoundNo Status Records FoundNo Status Records FoundNo Status Records FoundNo Status Records FoundNo Status Records FoundNo Status Records Found INFORMATION SOURCE (unrecogn ized section and content) DATE CREATED AUTHOR 07/26/2020 [facility] DATE CREATED AUTHOR AUTHOR'S ORGANIZ ATION 07/26/2020 [facility] DATE CREATED AUTHOR AUTHOR'S ORGANIZ ATION 08/01/2021 [facility] DATE CREATED AUTHOR AUTHOR'S ORGANIZ ATION 08/30/2022 [facility] DATE CREATED AUTHOR AUTHOR'S ORGANIZ ATION 01/07/2023 [facility] DATE CREATED AUTHOR AUTHOR'S ORGANIZ ATION 08/21/2023 [facility] DATE CREATED AUTHOR AUTHOR'S ORGANIZ ATION 05/23/2025 [facility] Care Teams (unrecognized sec tion and content) Repacker Relationship Specialty Start Date End Date Marina Mandujano MD [facility] [place] [id number] Physician Rheumatology 07/31/20 Repacker Relationship Specialty Start Date End Date Marina Mandujano MD [address] [place], [place] [id number] Physician Rheumatology 07/31/20 Repacker Relationship Specialty Start Date End Date Ayo Mirza MD [address] [place] [address] PCP - General Family Medicine 05/28/18 Repacker Relationship Specialty Start Date End Date Ayo Mirza MD [address] [place], [place] [address] PCP - General Family Medicine 05/28/18 Repacker Relationship Specialty Start Date End Date Ayo Mirza MD [address] [place] [id number] PCP - General Family Medicine 05/28/18 Repacker Relationship Specialty Start Date End Date Marina Mandujano MD [address] [place], [place] [id number] Physician Rheumatology 07/31/20 Team Status: Active Member Role Status Dates Dr. Aung Mirza MD Family Provider Active Dr. Aung Mirza MD Primary Care Provider Activ e Team Status: Inactive Member Role Status Dates Dr. Aung Mirza MD Primary Care Provider Activ e LATOYA GRIFFIN Attending Provider Active Team Status: Active Member Role Status Dates Dr. Ayo Mirza MD Family Provider Active Dr. Ayo Mirza MD Primary Care Provider Acti ve Team Status: Inactive Member Role Status Dates Dr. Ayo Mirza MD Primary Care Provider Acti ve Start: December 20, 2024 End: December 20, 2024 Dr. Ayo Mirza MD Attending Provider Active Start: December 20, 2024 End: December 20, 2024 Dr. Ayo Mirza MD Referring Provider Active Start: December 20, 2024 End: December 20, 2024 Repacker Relationship Specialty Start Date End Date Marina Mandujano MD [address] [place], [place] [id number] Physician Rheumatology 07/31/20 Team Status: Inactive Member Role Status Dates Dr. Ayo Mirza MD Primary Care Provider Acti ve Start: March 16, 2025 End: March 16, 2025 Dr. Ayo Mirza MD Referring Provider Active Start: March 16, 2025 End: March 16, 2025 JAVON Christianson Attending Provider Active Sta rt: March 16, 2025 End: March 16, 2025 Team Status: Inactive Member Role Status Dates Dr. Ayo Mirza MD Primary Care Provider Acti ve Start: April 10, 2025 End: April 10, 2025 Dr. Ayo Mirza MD Attending Provider Active Start: April 10, 2025 End: April 10, 2025 Dr. Ayo Mirza MD Referring Provider Active Start: April 10, 2025 End: April 10, 2025 Reason for Visit (unrecogniz ed section and content) Reason Onset Date Comments [employer] Apt request severe hip pain 01/06/2023 Reason Comments Consult Colonoscopy consult. Reason Comments Follow Up Review colonoscopy r esults. Source Comments (unrecognize d section and content) In the event this informatio n is protected by the Federal Confidentiality of Alcohol and Drug Abuse Patient Records regulations: The Federal rules restrict any use of the information to criminally investigate or prosecute any alcohol or drug abuse patient.[facility] the event this information is protected by the Federal Confidentiality of Alcohol and Drug Abuse Patient Records regulations: The Federal rules restrict any use of the information to criminally investigate or prosecute any alcohol or drug abuse patient.[facility] the event this information is protected by the Federal Confidentiality of Alcohol and Drug Abuse Patient Records regulations: The Federal rules restrict any use of the information to criminally investigate or prosecute any alcohol or drug abuse patient.[facility] Goals (unrecognized section and content) Goals may be documented in a n alternate sectionGoals may be documented in an alternate sectionGoals may be documented in an alternate section FOR RECORDS PERTAINING TO PATIENTS WHO ARE OR HAVE BEEN ENROLLED IN A CHEMICAL DEPENDENCY/SUBSTANCEABUSE PROGRAM, SOME INFORMATION MAY BE OMITTED. This clinical summary was aggregated from multiple sources. Caution should be exercised in using it in the provision of clinical care. This summary normalizes information from multiple sources, and as a consequence, information in this document may materially change the coding, format and clinical context of patient data. In addition, data may be omitted in some cases. CLINICAL DECISIONS SHOULD BE BASED ON THE PRIMARY CLINICAL RECORDS. [facility]. provides no warranty or guarantee of the accuracy or completeness of information in this document.
--- OUTSIDE RECORDS SUMMARY | 2025-06-02 07:40 | XMS RPT_ITS | CCD ---
Author Organization [facility] Care Team Providers Care Senior Mechanical Designer Name Role Phone Hermes SHAW, Naren Luo Unavailable BENIGNO NORRIS MD Attending Unavailable BENIGNO NORRIS MD Primary Care Unavailable BENIGNO NORRIS MD Admitting Unavailable Marina Mandujano MD Unavailable Unavailable Primary Care Provider UnavailAyo Lawrence MD Primary Care Provider AYO MIRZA Primary Care UnavailNEEMA Oliva Referring Unavailable GRISEL FLORENCE Attending Unavailable AYO MIRZA Primary Care UnavailNEEMA Oliva Attending Unavailable GRISEL FLORENCE Referring Unavailable AYO MIRZA Referring UnavailAYO Lawrence Primary Care UnavailGRISEL Alexander Attending Unavailable Marina Mandujano MD Unavailable [phone] Ayo Mirza MD Primary Care Provider Dr. Ayo Mirza MD Attending Provider Dr. Ayo Mirza MD Referring Provider John Baird Attending Provider Ayo Mirza Primary Care Unavailable Ayo Mirza Attending Unavailable Ayo Mirza Referring Unavailable Ayo Mirza Primary Care Unavailable Ayo Mirza Attending Unavailable Ayo Mirza Primary Care Unavailable McMorrow CHLORINATION OPERATOR, Augustine Attending Unavailable McMorrow CHLORINATION OPERATOR, Augustine Referring Unavailable Ayo Mirza Referring Unavailable Ayo Mirza Primary Care Unavailable John Baird Attending Unavailable Ayo Mirza Referring Unavailable Ayo Mirza Primary Care Unavailable Ayo Mirza Attending Unavailable Allergies Allergy Classification Reported Allergen(s) Allergy Type Date of Onset Reaction(s) Facility (4 sources) Budesonide / formoterol; Translations: [BUDESONIDE-FORM OTEROL] Drug Allergy 06-23-2023 Rash [facility] (4 sources) Escitalopram; Translations: [ESCITALOPRAM] Drug Allergy 06-23-2023 Other: See Comments [facility] (4 sources) varenicline; Translations: [VARENICLINE] Drug Allergy 06-23-2023 Diarrhea [facility] Medications Current Medications Medication Drug Class(es) Dates [...] 09/10/2021 Active take 2 tablets by mo [facility] once daily allopurinol (ZYLOPRIM) 100 mg tablet [...] mouth daily. 02/21/2020 Active polyethylene glycol 3350 195762 mg / potassium chloride 2970 mg / sodium bicarbonate 6740 mg / sodium chloride 5860 mg / sodium sulfate 16991 mg powder for oral solution (1 source) [...] 04-10-2025 Calcium [Mass/Vol] 9.2 mg/dL Normal 7.6-11.0 [facility] Comment on above: Order Comment: Order Date: 04/10/25 Order Info: [id number] - CA Order Info: 45701-6 - MG Order Info: 2823-3 - K Performed By: #### L 501.0895 #### [facility] [address] [place] [address], [address] Magnesiumon 04-10-2025 Magnesium [Mass/Vol] 2.3 mg/dL High 1.5-2.2 [facility] Comment on above: Order Comment: Order Date: 06/23/24 Order Info: [id number] - VITD25 Performed By: #### L 506.1000, L501.1400, L500.4100, L501.9910 #### [facility] [address] [place], [place], [address] Magnesium measurement (mass/ volume)Ordered By: Augustine Reyes on 04-10-2025 Magnesium (Unsp spec) [Mass/Vol] 2.3 mg/dL High 1.5-2.2 [facility] Potassiumon 04-10-2025 Potassium [Moles/Vol] 4.3 mmol/L Normal 3.3-5.1 [facility] Comment on above: Order Comment: Order Date: 04/10/25 Order Info: [id number] - CA Order Info: 38031-6 - MG Order Info: 2823-3 - K Performed By: #### L 501.5600 #### [facility] [address] [place], [place], [address] Potassium measurement (mass/ volume)Ordered By: Augustine Reyes on 04-10-2025 Potassium (Unsp spec) [Mass/Vol] 4.3 mmol/L 3.3-5.1 [facility] Serum or plasma calcium jadiel urement (mass/volume)Ordered By: Augustine Reyes on 04-10-2025 Calcium [Mass/Vol] 9.2 mg/dL 7.6-11.0 [facility] Vitamin B12on 04-10-2025 Cobalamin (Vitamin B12) [Mass/Vol] 416 pg/mL Normal 180-914 [facility] Comment on above: Order Comment: Order Date: 04/10/25 Order Info: [id number] - CA Order Info: 88890-8 - MG Order Info: 2823-3 - K Performed By: #### L 503.0106 #### [facility] [address] [place], [place], [address] Vitamin B12 ser/plasOrdered By: Augustine Reyes on 04-10-2025 Cobalamin (Vitamin B12) [Mass/Vol] 416 pg/mL 180-914 [facility] Care Visit Reporton 0 03-16-2025 Urgent Care Visit Report [facility] [address] , [address] [place], [place] [address] [phone] OFFICE VISIT Date of Service: 03/16/25 MR#: [id number] Acct: [id number] Name: HUBERT BURRIS Rep #: [id number] : 1965 Provider: JAVON Jeffries Age/Sex: 60/M Location: [facility] Status: Signed Intake Vital Signs 04/26/24 14:26 [...] Admin Location Dispensed Lot Number Expiration Date [facility] Man ufacturer 30 mg IM Right deltoid 1 mL [id number] 07/26/25 85495-295-79 VIS Research Coding Level of Care Code Off vis,new,level [...] Montesinos Signature: Date (if applicable) CC: Normal [facility] Allergens, Zone 8on 12-26-19 25 A. ALTERNATA <0.10 Normal Class 0 [facility] Comment on above: Order Comment: Order Date: 06/23/24 Order Info: [id number] - VITD25 Performed By: #### L 506.1000, L501.1400, L500.4100, L501.9910 #### [facility] [address] [place], [address] ASPERGILLUS FUM <0.10 Normal Class 0 [facility] Comment on above: Order Comment: Order Date: 06/23/24 Order Info: [id number] - VITD25 Performed By: #### L 506.1000, L501.1400, L500.4100, L501.9910 #### [facility] [address] [place], [address] BAHIA GRASS <0.10 Normal Class 0 [facility] Comment on above: Order Comment: Order Date: 06/23/24 Order Info: [id number] - VITD25 Performed By: #### L 506.1000, L501.1400, L500.4100, L501.9910 #### [facility] [address] [place], [address] BERMUDA GRASS <0.10 Normal Class 0 [facility] Comment on above: Order Comment: Order Date: 06/23/24 Order Info: [id number] - VITD25 Performed By: #### L 506.1000, L501.1400, L500.4100, L501.9910 #### [facility] [address] [place], [address] [place], [place] <0.10 Normal Class 0 [facility] Comment on above: Order Comment: Order Date: 06/23/24 Order Info: [id number] - VITD25 Performed By: #### L 506.1000, L501.1400, L500.4100, L501.9910 #### [facility] [address] [place], [address] CAT HAIR/DANDER <0.10 Normal Class 0 [facility] Comment on above: Order Comment: Order Date: 06/23/24 Order Info: [id number] - VITD25 Performed By: #### L 506.1000, L501.1400, L500.4100, L501.9910 #### [facility] [address] [place], [address] CLADOSPOR HERB <0.10 Normal Class 0 [facility] Comment on above: Order Comment: Order Date: 06/23/24 Order Info: [id number] - VITD25 Performed By: #### L 506.1000, L501.1400, L500.4100, L501.9910 #### [facility] [address] [place], [address] COCKROACH,AMER <0.10 Normal Class 0 [facility] Comment on above: Order Comment: Order Date: 06/23/24 Order Info: [id number] - VITD25 Performed By: #### L 506.1000, L501.1400, L500.4100, L501.9910 #### [facility] [address] [place], [address] D FARINAE MITE <0.10 Normal Class 0 [facility] Comment on above: Order Comment: Order Date: 06/23/24 Order Info: [id number] - VITD25 Performed By: #### L 506.1000, L501.1400, L500.4100, L501.9910 #### [facility] [address] [place], [address] D PTERONYSSINUS <0.10 Normal Class 0 [facility] Comment on above: Order Comment: Order Date: 06/23/24 Order Info: [id number] - VITD25 Performed By: #### L 506.1000, L501.1400, L500.4100, L501.9910 #### [facility] [address] [place], [address] DOG EPITHELIA <0.10 Normal Class 0 [facility] Comment on above: Order Comment: Order Date: 06/23/24 Order Info: [id number] - VITD25 Performed By: #### L 506.1000, L501.1400, L500.4100, L501.9910 #### [facility] [address] [place], [address] ELM,AMER WHITE <0.10 Normal Class 0 [facility] Comment on above: Order Comment: Order Date: 06/23/24 Order Info: [id number] - VITD25 Performed By: #### L 506.1000, L501.1400, L500.4100, L501.9910 #### [facility] [address] [place], [address] HAZELNUT TREE <0.10 Normal Class 0 [facility] Comment on above: Order Comment: Order Date: 06/23/24 Order Info: [id number] - VITD25 Performed By: #### L 506.1000, L501.1400, L500.4100, L501.9910 #### [facility] [address] [place], [address] HICKORY, WHITE <0.10 Normal Class 0 [facility] Comment on above: Order Comment: Order Date: 06/23/24 Order Info: [id number] - VITD25 Performed By: #### L 506.1000, L501.1400, L500.4100, L501.9910 #### [facility] [address] [place], [address] MARY GRASS <0.10 Normal Class 0 [facility] Comment on above: Order Comment: Order Date: 06/23/24 Order Info: [id number] - VITD25 Performed By: #### L 506.1000, L501.1400, L500.4100, L501.9910 #### [facility] [address] [place], [address] MAPLE/BOX ELDER <0.10 Normal Class 0 [facility] Comment on above: Order Comment: Order Date: 06/23/24 Order Info: [id number] - VITD25 Performed By: #### L 506.1000, L501.1400, L500.4100, L501.9910 #### [facility] [address] [place], [address] MOUNTAIN CEDAR <0.10 Normal Class 0 [facility] Comment on above: Order Comment: Order Date: 06/23/24 Order Info: [id number] - VITD25 Performed By: #### L 506.1000, L501.1400, L500.4100, L501.9910 #### [facility] [address] [place], [address] MUCOR RACEMOSUS <0.10 Normal Class 0 [facility] Comment on above: Order Comment: Order Date: 06/23/24 Order Info: [id number] - VITD25 Performed By: #### L 506.1000, L501.1400, L500.4100, L501.9910 #### [facility] [address] [place], [address] MUGWORT <0.10 Normal Class 0 [facility] Comment on above: Order Comment: Order Date: 06/23/24 Order Info: [id number] - VITD25 Performed By: #### L 506.1000, L501.1400, L500.4100, L501.9910 #### [facility] [address] [place], [address] MULBERRY, WHITE <0.10 Normal Class 0 [facility] Comment on above: Order Comment: Order Date: 06/23/24 Order Info: [id number] - VITD25 Performed By: #### L 506.1000, L501.1400, L500.4100, L501.9910 #### [facility] [address] [place], [address] NETTLE <0.10 Normal Class 0 [facility] Comment on above: Order Comment: Order Date: 06/23/24 Order Info: [id number] - VITD25 Performed By: #### L 506.1000, L501.1400, L500.4100, L501.9910 #### [facility] [address] [place], [address] OAK, WHITE <0.10 Normal Class 0 [facility] Comment on above: Order Comment: Order Date: 06/23/24 Order Info: [id number] - VITD25 Performed By: #### L 506.1000, L501.1400, L500.4100, L501.9910 #### [facility] [address] [place], [address] PEN CHRYSOGEN <0.10 Normal Class 0 [facility] Comment on above: Order Comment: Order Date: 06/23/24 Order Info: [id number] - VITD25 Performed By: #### L 506.1000, L501.1400, L500.4100, L501.9910 #### [facility] [address] [place], [address] PIGWEED, ROUGH <0.10 Normal Class 0 [facility] Comment on above: Order Comment: Order Date: 06/23/24 Order Info: [id number] - VITD25 Performed By: #### L 506.1000, L501.1400, L500.4100, L501.9910 #### [facility] [address] [place], [address] PLANTAIN,ENGLSH <0.10 Normal Class 0 [facility] Comment on above: Order Comment: Order Date: 06/23/24 Order Info: [id number] - VITD25 Performed By: #### L 506.1000, L501.1400, L500.4100, L501.9910 #### [facility] [address] [place], [address] RAGWEED SH/COM <0.10 Normal Class 0 [facility] Comment on above: Order Comment: Order Date: 06/23/24 Order Info: [id number] - VITD25 Performed By: #### L 506.1000, L501.1400, L500.4100, L501.9910 #### [facility] [address] [place], [address] SHEEP SORREL <0.10 Normal Class 0 [facility] Comment on above: Order Comment: Order Date: 06/23/24 Order Info: [id number] - VITD25 Performed By: #### L 506.1000, L501.1400, L500.4100, L501.9910 #### [facility] [address] [place], [address] STEMPHYLIUM HER <0.10 Normal Class 0 [facility] Comment on above: Order Comment: Order Date: 06/23/24 Order Info: [id number] - VITD25 Performed By: #### L 506.1000, L501.1400, L500.4100, L501.9910 #### [facility] [address] [place], [address] SWEET GUM <0.10 Normal Class 0 [facility] Comment on above: Order Comment: Order Date: 06/23/24 Order Info: [id number] - VITD25 Performed By: #### L 506.1000, L501.1400, L500.4100, L501.9910 #### [facility] [address] [place], [address] SYCAMORE, AMER <0.10 Normal Class 0 [facility] Comment on above: Order Comment: Order Date: 06/23/24 Order Info: [id number] - VITD25 Performed By: #### L 506.1000, L501.1400, L500.4100, L501.9910 #### [facility] [address] [place], [address] L5500.0550on 12-25-2024 BEEF <0.10 Normal Class 0 [facility] Comment on above: Order Comment: Test( s) 544827-L581-DqM Cockroach, [place]; 832806- O543-RvN Saunders, White; 866286-Q528-EpT Sweet Gum were developed and had performance characteristics determined by [facility]. These tests have not been cleared or approved by the U.S. Food and Drug Administration. The FDA has determined that such clearance or approval is not necessary. These tests are used for clinical purposes. These should not be regarded as investigational or for research. Performed By: #### L 5500.0550 #### [facility] [address] [place], [address] CHOCOLATE <0.10 Normal Class 0 [facility] Comment on above: Order Comment: Test( s) 556724-D303-VnY Cockroach, [place]; 180694- S573-CrR Saunders, White; 281972-V961-IsB Sweet Gum were developed and had performance characteristics determined by [facility]. These tests have not been cleared or approved by the U.S. Food and Drug Administration. The FDA has determined that such clearance or approval is not necessary. These tests are used for clinical purposes. These should not be regarded as investigational or for research. Performed By: #### L 5500.0550 #### [facility] [address] [place], [address] CODFISH <0.10 Normal Class 0 [facility] Comment on above: Order Comment: Test( s) 831501-X491-HwO Cockroach, [place]; 643327- B769-VpY Saunders, White; 572192-A079-TgE Sweet Gum were developed and had performance characteristics determined by [facility]. These tests have not been cleared or approved by the U.S. Food and Drug Administration. The FDA has determined that such clearance or approval is not necessary. These tests are used for clinical purposes. These should not be regarded as investigational or for research. Performed By: #### L 5500.0550 #### [facility] [address] [place], [address] COMMENT Comment Normal . [facility] Comment on above: Order Comment: Test( s) 926618-V904-NmS Cockroach, [place]; 270418- L823-HeS Saunders, White; 114927-O060-UhI Sweet Gum were developed and had performance [...] High Performed By: #### L 5500.0550 #### [facility] [address] [place], [address] CORN <0.10 Normal Class 0 [facility] Comment on above: Order Comment: Test( s) 947462-B276-NhY Cockroach, [place]; 942877- P653-PtJ Saunders, White; 229027-Z202-UhC Sweet Gum were developed and had performance characteristics determined by [facility]. These tests have not been cleared or approved by the U.S. Food and Drug Administration. The FDA has determined that such clearance or approval is not necessary. These tests are used for clinical purposes. These should not be regarded as investigational or for research. Performed By: #### L 5500.0550 #### [facility] [address] [place], [place], [id number] [phone] EGG, WHOLE <0.10 Normal Class 0 [facility] Comment on above: Order Comment: Test( s) 617176-J371-LxS Cockroach, [place]; 453050- B691-KiD Saunders, White; 033449-V823-CmK Sweet Gum were developed and had performance characteristics determined by [facility]. These tests have not been cleared or approved by the U.S. Food and Drug Administration. The FDA has determined that such clearance or approval is not necessary. These tests are used for clinical purposes. These should not be regarded as investigational or for research. Result Comment: Perf ormed at: - [facility] [address] [id number] Education General Manager: Cat Jean MD, Phone: [phone] Performed By: #### L 5500.0550 #### [facility] [address] [place], [place], [id number] [phone] (COW) <0.10 Normal Class 0 [facility] Comment on above: Order Comment: Test( s) 583954-D809-LbS Cockroach, [place]; 636083- U393-ZiQ Saunders, White; 721620-R989-ZwO Sweet Gum were developed and had performance characteristics determined by [facility]. These tests have not been cleared or approved by the U.S. Food and Drug Administration. The FDA has determined that such clearance or approval is not necessary. These tests are used for clinical purposes. These should not be regarded as investigational or for research. Performed By: #### L 5500.0550 #### [facility] [address] [place], [address] [phone] MUSSELS <0.10 Normal Class 0 [facility] Comment on above: Order Comment: Test( s) 907112-V291-SxM Cockroach, [place]; 914769- E076-ZrJ Saunders, White; 186440-K635-WnM Sweet Gum were developed and had performance characteristics determined by [facility]. These tests have not been cleared or approved by the U.S. Food and Drug Administration. The FDA has determined that such clearance or approval is not necessary. These tests are used for clinical purposes. These should not be regarded as investigational or for research. Performed By: #### L 5500.0550 #### [facility] [address] [place], [address] PEANUT <0.10 Normal Class 0 [facility] Comment on above: Order Comment: Test( s) 416009-A984-NlC Cockroach, [place]; 171118- B321-ZfB Saunders, White; 456417-G631-IgK Sweet Gum were developed and had performance characteristics determined by [facility]. These tests have not been cleared or approved by the U.S. Food and Drug Administration. The FDA has determined that such clearance or approval is not necessary. These tests are used for clinical purposes. These should not be regarded as investigational or for research. Performed By: #### L 5500.0550 #### [facility] [address] [place], [address] PORK <0.10 Normal Class 0 [facility] Comment on above: Order Comment: Test( s) 851129-V630-WrR Cockroach, [place]; 092691- X718-QoI Saunders, White; 853117-Y876-HtP Sweet Gum were developed and had performance characteristics determined by [facility]. These tests have not been cleared or approved by the U.S. Food and Drug Administration. The FDA has determined that such clearance or approval is not necessary. These tests are used for clinical purposes. These should not be regarded as investigational or for research. Performed By: #### L 5500.0550 #### [facility] [address] [place], [address] SALMON <0.10 Normal Class 0 [facility] Comment on above: Order Comment: Test( s) 584724-M311-UoQ Cockroach, [place]; 239386- X787-PsM Saunders, White; 766649-R319-VhD Sweet Gum were developed and had performance characteristics determined by [facility]. These tests have not been cleared or approved by the U.S. Food and Drug Administration. The FDA has determined that such clearance or approval is not necessary. These tests are used for clinical purposes. These should not be regarded as investigational or for research. Performed By: #### L 5500.0550 #### [facility] [address] [address] [place], [place], [id number] SHRIMP <0.10 Normal Class 0 [facility] Comment on above: Order Comment: Test( s) [id number] Cockroach, [place]; [id number] Saunders, White; [id number] Sweet Gum were developed and had performance characteristics determined by [facility]. These tests have not been cleared or approved by the U.S. Food and Drug Administration. The FDA has determined that such clearance or approval is not necessary. These tests are used for clinical purposes. These should not be regarded as investigational or for research. Performed By: #### L 5500.0550 #### [facility] [address] [place], [place], [id number] SOYBEAN <0.10 Normal Class 0 [facility] Comment on above: Order Comment: Test( s) [id number] Cockroach, [place]; [id number]- [id number] Saunders, White; [id number] Sweet Gum were developed and had performance characteristics determined by [facility]. These tests have not been cleared or approved by the U.S. Food and Drug Administration. The FDA has determined that such clearance or approval is not necessary. These tests are used for clinical purposes. These should not be regarded as investigational or for research. Performed By: #### L 5500.0550 #### [facility] [address] [place], [address] TUNA <0.10 Normal Class 0 [facility] Comment on above: Order Comment: Test( s) [id number] Cockroach, [place]; [id number]- [id number] Saunders, White; [id number] Sweet Gum were developed and had performance characteristics determined by [facility]. These tests have not been cleared or approved by the U.S. Food and Drug Administration. The FDA has determined that such clearance or approval is not necessary. These tests are used for clinical purposes. These should not be regarded as investigational or for research. Performed By: #### L 5500.0550 #### [facility] [address] [place], [address] WHEAT <0.10 Normal Class 0 [facility] Comment on above: Order Comment: Test( s) [id number] Cockroach, [place]; [id number]- [id number] Saunders, White; [id number] Sweet Gum were developed and had performance characteristics determined by [facility]. These tests have not been cleared or approved by the U.S. Food and Drug Administration. The FDA has determined that such clearance or approval is not necessary. These tests are used for clinical purposes. These should not be regarded as investigational or for research. Performed By: #### L 5500.0550 #### [facility] [address], [place], [id number] Thyroid Stim Hormone (TSH)on 12-21-2024 TSH 1.060 uIU/mL Normal 0.300-4.200 [facility] Comment on above: Order Comment: Order Date: 06/23/24 Order Info: [id number] - [id number] Performed By: #### L 506.1000, L501.1400, L500.4100, L501.9910 #### [facility] [address] [place], [place], [id number] A. alternata IgE Qn (S)Order ed By: Ayo Mirza on 12-20-2024 Alternaria alternata IgE Allergen <0.10 kU/L Class 0 [facility] Absolute lymphocyte countOrd ered By: Ayo Mirza on 12-20-2024 Lymphocytes Auto (Unsp spec) [#/Vol] 1.14 10*3/uL 0.83-4.51 [facility] Absolute neutrophil countOrd ered By: Ayo Mirza on 12-20-2024 Neutrophils (Bld) [#/Vol] 2.8 10*3/uL 2.0-7.7 [facility] [place] Cockroach IgE Qn (S )Ordered By: Ayo Mirza on 12-20-2024 [place] Cockroach Allergen <0.10 kU/L Class 0 [facility] [place] house dust mite IgE Qn (S)Ordered By: Ayo Mirza on 12-20-2024 Dermatophagoides farinae Allergen <0.10 kU/L Class 0 [facility] [place] sycamore IgE serumO rdered By: Ayo Mirza on 12-20-2024 Como Tree Allergen <0.10 kU/L Class [address] [facility] Aspergillus fumigatus IgE se rumOrdered By: Ayo Mirza on 12-20-2024 Aspergillus fumigatus Allergen <0.10 kU/L Class 0 [facility] Automated lymphocyte count a s percentage of total leukocytesOrdered By: Ayo Mirza on 12-20-2024 Lymphocytes/100 WBC Auto (Unsp spec) 24.6 % 19-41 [facility] Bahia grass IgE Qn (S)Ordere d By: Ayo Mirza on 12-20-2024 Bahia Grass Allergen <0.10 kU/L Class 0 [facility] Basophil percentageOrdered B y: Ayo Mirza on 12-20-2024 Basophils/100 WBC (Bld) 0.9 % 0-1 [facility] Beef IgE Qn (S)Ordered By: Chinedu Mirza on 12-20-2024 Beef Allergen (RAST) <0.10 kU/L Class 0 [facility] Bermuda grass IgE Qn (S)Orde red By: Ayo Mirza on 12-20-2024 Bermuda Grass Allergen <0.10 kU/L Class [address] [facility] C. herbarum IgE Qn (S)Ordere d By: Ayo Mirza on 12-20-2024 Cladosporium herbarum Allergen <0.10 kU/L Class 0 [facility] CBC W/Diff, Automatedon 11-27 Absolute Lymph 1.14 X10 3/uL Normal 0.83-4.51 [facility] Comment on above: Order Comment: Order Date: 06/23/24 Order Info: [id number] - [id number] Performed By: #### L 506.1000, L501.1400, L500.4100, L501.9910 #### [facility] [address] [place], [address] Absolute Neut 2.8 X10 3/uL Normal 2.0-7.7 [facility] Comment on above: Order Comment: Order Date: 06/23/24 Order Info: [id number] - [id number] Performed By: #### L 506.1000, L501.1400, L500.4100, L501.9910 #### [facility] [address] [place], [address] Basophils/100 WBC (Bld) 0.9 % Normal 0-1 [facility] Comment on above: Order Comment: Order Date: 06/23/24 Order Info: [id number] - VITD25 Performed By: #### L 506.1000, L501.1400, L500.4100, L501.9910 #### [facility] [address] [place], [address] Eosinophils/100 WBC (Bld) 4.1 % Normal 0-5 [facility] Comment on above: Order Comment: Order Date: 06/23/24 Order Info: [id number] - VITD25 Performed By: #### L 506.1000, L501.1400, L500.4100, L501.9910 #### [facility] [address] [place], [address] Erythrocyte distribution width (RBC) [Ratio] 13.5 % Normal 11.6-14.6 [facility] Comment on above: Order Comment: Order Date: 06/23/24 Order Info: [id number] - VITD25 Performed By: #### L 506.1000, L501.1400, L500.4100, L501.9910 #### [facility] [address] [place], [address] Hematocrit (Bld) [Volume fraction] 47.5 % Normal 40-54 [facility] Comment on above: Order Comment: Order Date: 06/23/24 Order Info: [id number] - VITD25 Performed By: #### L 506.1000, L501.1400, L500.4100, L501.9910 #### [facility] [address] [place], [address] Hemoglobin (Bld) [Mass/Vol] 15.8 g/dL Normal 13.0-16.5 [facility] Comment on above: Order Comment: Order Date: 06/23/24 Order Info: [id number] - VITD25 Performed By: #### L 506.1000, L501.1400, L500.4100, L501.9910 #### [facility] [address] [place], [address] IG% 0.200 Normal 0.0-0.9 [facility] Comment on above: Order Comment: Order Date: 06/23/24 Order Info: [id number] - VITD25 Result Comment: IG% - Immature Granulocytes (promyelocytes, myelocytes and metamyelocytes) > 1% indicates that a LEFT SHIFT is Present. Performed By: #### L 506.1000, L501.1400, L500.4100, L501.9910 #### [facility] [address] [place], [address] Lymphocytes/100 WBC (Bld) 24.6 % Normal 19-41 [facility] Comment on above: Order Comment: Order Date: 06/23/24 Order Info: [id number] - VITD25 Performed By: #### L 506.1000, L501.1400, L500.4100, L501.9910 #### [facility] [address] [place], [address] MCH (RBC) [Entitic mass] 31.2 pg Normal 27.0-32.0 [facility] Comment on above: Order Comment: Order Date: 06/23/24 Order Info: [id number] - VITD25 Performed By: #### L 506.1000, L501.1400, L500.4100, L501.9910 #### [facility] [address] [place], [address] MCHC (RBC) [Mass/Vol] 33.3 g/dL Normal 32-36 [facility] Comment on above: Order Comment: Order Date: 06/23/24 Order Info: [id number] - VITD25 Performed By: #### L 506.1000, L501.1400, L500.4100, L501.9910 #### [facility] [address] [place], [address] MCV (RBC) [Entitic vol] 93.7 fL Normal 80-94 [facility] Comment on above: Order Comment: Order Date: 06/23/24 Order Info: [id number] - VITD25 Performed By: #### L 506.1000, L501.1400, L500.4100, L501.9910 #### [facility] [address] [place], [address] Monocytes/100 WBC (Bld) 10.1 % High 0-10 [facility] Comment on above: Order Comment: Order Date: 06/23/24 Order Info: [id number] - VITD25 Performed By: #### L 506.1000, L501.1400, L500.4100, L501.9910 #### [facility] [address] [place], [address] Neutrophils/100 WBC (Bld) 60.1 % Normal 47-70 [facility] Comment on above: Order Comment: Order Date: 06/23/24 Order Info: [id number] - VITD25 Performed By: #### L 506.1000, L501.1400, L500.4100, L501.9910 #### [facility] [address] [place], [address] Nucleated RBC (Bld) [#/Vol] 0 10*3/uL Normal 0-5 [facility] Comment on above: Order Comment: Order Date: 06/23/24 Order Info: [id number] - VITD25 Performed By: #### L 506.1000, L501.1400, L500.4100, L501.9910 #### [facility] [address] [place], [address] Platelet mean volume (Bld) [Entitic vol] 10.5 fL Normal 6.2-12.0 [facility] Comment on above: Order Comment: Order Date: 06/23/24 Order Info: [id number] - VITD25 Performed By: #### L 506.1000, L501.1400, L500.4100, L501.9910 #### [facility] [address] [place], [address] Platelets (Bld) [#/Vol] 205 10*3/uL Normal 150-450 [facility] Comment on above: Order Comment: Order Date: 06/23/24 Order Info: [id number] - VITD25 Performed By: #### L 506.1000, L501.1400, L500.4100, L501.9910 #### [facility] [address] [place], [address] RBC (Bld) [#/Vol] 5.07 10*6/uL Normal 4.6-6.2 [facility] Comment on above: Order Comment: Order Date: 06/23/24 Order Info: [id number] - VITD25 Performed By: #### L 506.1000, L501.1400, L500.4100, L501.9910 #### [facility] [address] [place], [address] RDW SD 46.5 fl High 35.1-43.9 [facility] Comment on above: Order Comment: Order Date: 06/23/24 Order Info: [id number] - VITD25 Performed By: #### L 506.1000, L501.1400, L500.4100, L501.9910 #### [facility] [address] [place], [address] WBC (Bld) [#/Vol] 4.6 10*3/uL Normal 4.4-11.0 [facility] Comment on above: Order Comment: Order Date: 06/23/24 Order Info: [id number] - VITD25 Performed By: #### L 506.1000, L501.1400, L500.4100, L501.9910 #### [facility] [address] [place], [address] Cat dander IgE Qn (S)Ordered By: Ayo Mirza on 12-20-2024 Cat Dander IgE Allergen <0.10 kU/L Class 0 [facility] Chocolate IgE Qn (S)Ordered By: Ayo Mirza on 12-20-2024 Chocolate Allergen (RAST) <0.10 kU/L Class 0 [facility] Codfish IgE Qn (S)Ordered By : Ayo Mirza on 12-20-2024 Codfish Allergen (RAST) <0.10 kU/L Class [address] [facility] Elwood IgE Qn (S)Ordered By: C alisia Mirza on 12-20-2024 Elwood Allergen (RAST) <0.10 kU/L Class 0 [facility] Cow milk IgE Qn (S)Ordered B y: Ayo Mirza on 12-20-2024 Cow's Milk Allergen <0.10 kU/L Class 0 [facility] Dog epithelium IgE Qn (S)Ord ered By: Ayo Mirza on 02-25-2025 Dog Epithelia Allergen <0.10 kU/L Class [address] [facility] Eosinophil percentageOrdered By: Ayo Mirza on 12-20-2024 Eosinophils/100 WBC (Bld) 4.1 % 0-5 [facility] Erythrocyte Sed Rateon 12-20 SED RATE 14 mm/hr Normal 0-20 [facility] Comment on above: Order Comment: Order Date: 12/20/24 Order Info: [id number] - CBCD Order Info: [id number] - SED Performed By: #### L 5500.0600, L101.9900, L501.9520, L100.0100 #### [facility] [address] [place], [place], [id number] Erythrocyte distribution wid th ratioOrdered By: Ayo Mirza on 12-20-2024 Erythrocyte distribution width (RBC) [Ratio] 13.5 % 11.6-14.6 [facility] Erythrocyte distribution wid th standard deviationOrdered By: Ayo Mirza on 12-20-2024 Erythrocyte distribution width (RBC) [Entitic vol] 46.5 fL High 35.1-43.9 [facility] Erythrocyte distribution width (RBC) [Ratio] 46.5 fl High 35.1-43.9 [facility] Erythrocyte sedimentation ra teOrdered By: Ayo Mirza on 12-20-2024 ESR (Bld) [Velocity] 14 mm/h 0-20 [facility] house dust mite IgE Qn (S)Ordered By: Ayo Mirza on 12-20-2024 Dermatophagoides pteronyss Allergen <0.10 kU/L Class 0 [facility] Hazelnut Pollen IgE Qn (S)Or dered By: Ayo Mirza on 12-20-2024 Hazelnut Tree Allergen <0.10 kU/L Class [address] [facility] Hematocrit Auto (Bld) [Volum e fraction]Ordered By: Ayo Mirza on 12-20-2024 Hematocrit (Bld) [Volume fraction] 47.5 % 40-54 [facility] Hemoglobin measurementOrdere d By: Ayo Mirza on 12-20-2024 Hemoglobin (Bld) [Mass/Vol] 15.8 g/dL 13.0-16.5 [facility] Immature granulocytes/100 WB C Auto (Bld)Ordered By: Ayo Mirza on 12-20-2024 Immature granulocytes/100 WBC (Bld) 0.200 % 0.0-0.9 [facility] Comment on above: IG% - Immature Granu locytes (promyelocytes, myelocytes and metamyelocytes) > 1% indicates that a LEFT SHIFT is Present. Mary grass IgE Qn (S)Orde red By: Ayo Mirza on 12-20-2024 Mary Grass Allergen (RAST) <0.10 kU/L Class 0 [facility] blue grass IgE Qn ( S)Ordered By: Ayo Mirza on 12-20-2024 [facility] (March) Grass IgE Ab <0.10 kU/L Class 0 [facility] - Miscellaneous t estsOrdered By: Ayo Mirza on 12-20-2024 Service comment (Unsp spec) [Interp] Comment . [facility] Comment on above: Levels of Specific I [...] 12-20-2024 Lymphocytes (Bld) [#/Vol] 1.14 10*3/uL 0.83-4.51 [facility] Lymphocytes/100 WBC Auto (Un sp spec)Ordered By: Ayo Mirza on 12-20-2024 Lymphocytes/100 WBC (Bld) 24.6 % 19-41 [facility] MCV (mean corpuscular volume ) determinationOrdered By: Ayo Mirza on 12-20-2024 MCV (RBC) [Entitic vol] 93.7 fL 80-94 [facility] Mean corpuscular hemoglobin (MCH) determinationOrdered By: Ayo Mirza on 12-20-2024 MCH (RBC) [Entitic mass] 31.2 pg 27.0-32.0 [facility] Mean corpuscular hemoglobin concentration (MCHC) determinationOrdered By: Ayo Mirza on 12-20-2024 MCHC (RBC) [Mass/Vol] 33.3 g/dL 32-36 [facility] Mean platelet volume determi nationOrdered By: Ayo Mirza on 12-20-2024 Platelet mean volume (Bld) [Entitic vol] 10.5 fL 6.2-12.0 [facility] Monocyte percentageOrdered B y: Ayo Mirza on 12-20-2024 Monocytes/100 WBC (Bld) 10.1 % High 0-10 [facility] Mountain Juniper IgE Qn (S)O rdered By: Ayo Mirza on 12-20-2024 Mountain [place] Tree Allergen <0.10 kU/L Class 0 [facility] Mucor racemosus IgE Qn (S)Or dered By: Ayo Mirza on 12-20-2024 Mucor racemosus Allergen <0.10 kU/L Class 0 [facility] Mugwort IgE Qn (S)Ordered By : Ayo Mirza on 12-20-2024 Mugwort Allergen <0.10 kU/L Class 0 [facility] Nettle IgE Qn (S)Ordered By: Ayo Mirza on 12-20-2024 Nettle Allergen <0.10 kU/L Class 0 [facility] Neutrophil percentageOrdered By: Ayo Mirza on 12-20-2024 Neutrophils/100 WBC (Bld) 60.1 % 47-70 [facility] Nucleated red blood cell per centageOrdered By: Ayo Mirza on 12-20-2024 Nucleated RBC/100 WBC (Bld) [Ratio] 0 % 0-5 [facility] P. notatum IgE Qn (S)Ordered By: Ayo Mirza on 12-20-2024 Penicillium chrysogen/notatum IgE <0.10 kU/L Class 0 [facility] Peanut IgE Qn (S)Ordered By: Ayo Mirza on 12-20-2024 Peanut Allergen (RAST) <0.10 kU/L Class [address] [facility] Platelet countOrdered By: Dean Mirza on 12-20-2024 Platelets (Bld) [#/Vol] 205 10*3/uL 150-450 [facility] Pork IgE Qn (S)Ordered By: Chinedu Mirza on 12-20-2024 Pork Allergen (RAST) <0.10 kU/L Class 0 [facility] RBC Auto (Bld) [#/Vol]Ordere d By: Ayo Mirza on 12-20-2024 RBC (Bld) [#/Vol] 5.07 10*6/uL 4.6-6.2 [facility] Rough Pigweed IgE Qn (S)Orde red By: Ayo Mirza on 12-20-2024 Rough Pigweed Allergen <0.10 kU/L Class [address] [facility] Rives IgE Qn (S)Ordered By: Ayo Mirza on 12-20-2024 Rives Allergen IgE Antibody <0.10 kU/L Class 0 [facility] Serum Acer negundo specific IgE antibody assayOrdered By: Ayo Mirza on 12-20-2024 Maple ([place]) Allergen IgE Ab <0.10 kU/L Class 0 [facility] Serum Bermuda grass IgE anti body assay (units/volume)Ordered By: Ayo Mirza on 12-20-2024 Bermuda grass IgE Qn (S) <0.10 kU/L Class 0 [facility] Serum Cladosporium herbarum IgE antibody assay (units/volume)Ordered By: Ayo Mirza on 12-20-2024 C. herbarum IgE Qn (S) <0.10 kU/L Class [address] [facility] Serum Tunisian plantain speci fic IgE antibody assayOrdered By: Ayo Mirza on 12-20-2024 Tunisian Plantain Allergen (RAST) <0.10 kU/L Class 0 [facility] Serum house dust mi te IgE antibody assay (units/volume)Ordered By: Ayo Mirza on 12-20-2024 house dust mite IgE Qn (S) <0.10 kU/L Class 0 [facility] Serum Mary grass IgE anti body assay (units/volume)Ordered By: Ayo Mirza on 12-20-2024 Mary grass IgE Qn (S) <0.10 kU/L Class 0 [facility] Serum [place] blue grass Ig E antibody assay (units/volume)Ordered By: Ayo Mirza on 12-20-2024 [place] blue grass IgE Qn (S) <0.10 kU/L Class 0 [facility] Serum Morus alba IgE antibod y assay (units/volume)Ordered By: Ayo Mirza on 12-20-2024 White mulberry IgE Qn (S) <0.10 kU/L Class 0 [facility] Serum Urtica dioica IgE anti body assay (units/volume)Ordered By: Ayo Mirza on 12-20-2024 Nettle IgE Qn (S) <0.10 kU/L Class 0 [facility] Serum bahia grass IgE antibo dy assay (units/volume)Ordered By: Ayo Mirza on 12-20-2024 Bahia grass IgE Qn (S) <0.10 kU/L Class [address] [facility] Serum beef IgE antibody assa y (units/volume)Ordered By: Ayo Mirza on 12-20-2024 Beef IgE Qn (S) <0.10 kU/L Class 0 [facility] Serum cat dander IgE antibod y assay (units/volume)Ordered By: Ayo Mirza on 12-20-2024 Cat dander IgE Qn (S) <0.10 kU/L Class 0 [facility] Serum codfish IgE antibody a ssay (units/volume)Ordered By: Ayo Mirza on 12-20-2024 Codfish IgE Qn (S) <0.10 kU/L Class 0 [facility] Serum common/short ragweed s pecific IgE antibody assayOrdered By: Ayo Mirza on 12-20-2024 Common Ragweed (Short) Allergen <0.10 kU/L Class 0 [facility] Serum corn IgE antibody assa y (units/volume)Ordered By: Ayo Mirza on 12-20-2024 [place]wood IgE Qn (S) <0.10 kU/L Class 0 [facility] Serum cow milk IgE antibody assay (units/volume)Ordered By: Ayo Mirza on 12-20-2024 Cow milk IgE Qn (S) <0.10 kU/L Class 0 [facility] Serum dog epithelium IgE ant ibody assay (units/volume)Ordered By: Ayo Mirza on 12-20-2024 Dog epithelium IgE Qn (S) <0.10 kU/L Class 0 [facility] Serum hazelnut pollen IgE an tibody assay (units/volume)Ordered By: Ayo Mirza on 12-20-2024 Hazelnut Pollen IgE Qn (S) <0.10 kU/L Class 0 [facility] Serum mountain cedar specifi c IgE antibody assayOrdered By: Ayo Mirza on 12-20-2024 Mountain Juniper IgE Qn (S) <0.10 kU/L Class 0 [facility] Serum mugwort IgE antibody a ssay (units/volume)Ordered By: Ayo Mirza on 12-20-2024 Mugwort IgE Qn (S) <0.10 kU/L Class 0 [facility] Serum mussel specific IgE an tibody assayOrdered By: Ayo Mirza on 12-20-2024 Mussel Allergen IgE Antibody <0.10 kU/L Class 0 [facility] Serum peanut IgE antibody as say (units/volume)Ordered By: Ayo Mirza on 12-20-2024 Peanut IgE Qn (S) <0.10 kU/L Class 0 [facility] Serum pork IgE antibody assa y (units/volume)Ordered By: Ayo Mirza on 12-20-2024 Pork IgE Qn (S) <0.10 kU/L Class 0 [facility] Serum salmon IgE antibody as say (units/volume)Ordered By: Ayo Mirza on 12-20-2024 Rives IgE Qn (S) <0.10 kU/L Class 0 [facility] Serum sheep sorrel IgE antib kenia assay (units/volume)Ordered By: Ayo Mirza on 12-20-2024 Sheep [place] IgE Qn (S) <0.10 kU/L Class 0 [facility] Serum shrimp specific IgE an tibody assayOrdered By: Ayo Mirza on 12-20-2024 Shrimp Allergen <0.10 kU/L Class 0 [facility] Serum soybean IgE antibody a ssay (units/volume)Ordered By: Ayo Mirza on 12-20-2024 Soybean IgE Qn (S) <0.10 kU/L Class 0 [facility] Serum sweet gum IgE radioall ergosorbent test (RAST) class determinationOrdered By: Ayo Mirza on 12-20-2024 Sweet Gum Tree Allergen <0.10 kU/L Class 0 [facility] Serum tuna IgE antibody assa y (units/volume)Ordered By: Ayo Mirza on 12-20-2024 Tuna IgE Qn (S) <0.10 kU/L Class 0 [facility] Serum wheat IgE antibody ass ay (units/volume)Ordered By: Ayo Mirza on 12-20-2024 Wheat IgE Qn (S) <0.10 kU/L Class 0 [facility] Serum white elm IgE antibody assay (units/volume)Ordered By: Ayo Mirza on 12-20-2024 White [place]m IgE Qn (S) <0.10 kU/L Class 0 [facility] Serum white oak IgE antibody assay (units/volume)Ordered By: Ayo Mirza on 12-20-2024 [place] IgE Qn (S) <0.10 kU/L Class 0 [facility] Serum whole egg IgE antibody assay (units/volume)Ordered By: Ayo Mirza on 12-20-2024 Whole Egg IgE Qn (S) <0.10 kU/L Class 0 [facility] Comment on above: Performed at: [address] [id number] Director: Cat Jean MD, Phone: [phone] Service comment (Unsp spec) [Interp]Ordered By: Ayo Mirza on 12-20-2024 RAST Comment Comment . [facility] Comment on above: Levels of Specific I gE Class Description of Class ----- < 0.10 0 Negative 0.10 - 0.31 0/I Equivocal/Low 0.32 - 0.55 I Low 0.56 - 1.40 II Moderate 1.41 - 3.90 III High 3.91 - 19.00 IV Very High 19.01 - 100.00 V Very High >100.00 Very High [place]ep [place] IgE Qn (S)Order ed By: Ayo Mirza on 12-20-2024 Sheep [place] Allergen <0.10 kU/L Class 0 [facility] Soybean IgE Qn (S)Ordered By : Ayo Mirza on 12-20-2024 Soybean Allergen (RAST) <0.10 kU/L Class [address] [facility] Stemphylium botryosum IgE Qn (S)Ordered By: Ayo Mirza on 12-20-2024 Stemphylium herbarum Allergen IgE <0.10 kU/L Class 0 [facility] Stemphylium herbarum IgE ser umOrdered By: Ayo Mirza on 12-20-2024 Stemphylium botryosum IgE Qn (S) <0.10 kU/L Class 0 [facility] TSH DL <= 0.005 mIU/L QnOrde red By: Ayo Mirza on 12-20-2024 Thyroid Stimulating Hormone (TSH) 1.060 uIU/mL 0.300-4.200 [facility] TSH Qn 1.060 uIU/mL 0.300-4.200 [facility] Tuna IgE Qn (S)Ordered By: Chinedu Mirza on 12-20-2024 Tuna Allergen (RAST) <0.10 kU/L Class 0 [facility] Wheat IgE Qn (S)Ordered By: Ayo Mirza on 12-20-2024 Wheat Allergen (RAST) <0.10 kU/L Class 0 [facility] [place] IgE Qn (S)Ordered By: Ayo Mirza on 12-20-2024 [place] Allergen <0.10 kU/L Class 0 [facility] White [place] IgE Qn (S)Orde red By: Ayo Mirza on 12-20-2024 [place] Tree Allergen <0.10 kU/L Class 0 [facility] [place] IgE Qn (S)Ordered By: Ayo Mirza on 12-20-2024 [place] Tree Allergen <0.10 kU/L Class [address] [facility] White blood cell (WBC) count Ordered By: Ayo Mirza on 12-20-2024 WBC (Bld) [#/Vol] 4.6 10*3/uL 4.4-11.0 [facility] White hickory IgE serumOrder ed By: Ayo Mirza on 12-20-2024 White [place] IgE Qn (S) <0.10 kU/L Class 0 [facility] White mulberry IgE Qn (S)Ord ered By: Ayo Mirza on 12-20-2024 [place] Tree Allergen <0.10 kU/L Class [address] [facility] Whole Egg IgE Qn (S)Ordered By: Ayo Mirza on 12-20-2024 Egg Whole Allergen <0.10 kU/L Class 0 [facility] Comment on above: Performed at: [address] [id number] Director: Cat Jean MD, Phone: [phone] Lipid Profileon 06-23-2024 Cholesterol [Mass/Vol] 226 mg/dL High [address] [facility] Comment on above: Order Comment: Order Date: 06/23/24 Order Info: [id number] - LIPID Order Info: [id number] - URIC Order Info: [id number] - PSA Result Comment: <200 mg/dL Desirable 200-240 mg/dL Borderline >240 mg/dL High Risk Performed By: #### L 506.1000, L501.1400, L500.4100, L501.9910 #### [facility] [address] [place], [place], [id number] Cholesterol in HDL [Mass/Vol] 53 mg/dL Normal [facility] Comment on above: Order Comment: Order Date: 06/23/24 Order Info: - LIPID Order Info: [id number] - URIC Order Info: [id number] - PSA Result Comment: The drugs N-Acetylcysteine and Metamizole may falsely depress this assay. Reference Range HDL <40 mg/dL Low HDL Cholesterol HDL >or= 60 mg/dL High HDL Cholesterol Performed By: #### L 506.1000, L501.1400, L500.4100, L501.9910 #### [facility] [address] [place], [address] Cholesterol in LDL [Mass/Vol] 123 mg/dL Normal 0-130 [facility] Comment on above: Order Comment: Order Date: 06/23/24 Order Info: - LIPID Order Info: [id number] - URIC Order Info: [id number] - PSA Performed By: #### L 506.1000, L501.1400, L500.4100, L501.9910 #### [facility] [address], [address] Cholesterol in VLDL [Mass/Vol] 50 mg/dL High 5-40 [facility] Comment on above: Order Comment: Order Date: 06/23/24 Order Info: - LIPID Order Info: [id number] - URIC Order Info: [id number] - PSA Performed By: #### L 506.1000, L501.1400, L500.4100, L501.9910 #### [facility] [address] [place], [address] Triglyceride [Mass/Vol] 249 mg/dL High [facility] Comment on above: Order Comment: [...] #### L 506.1000, L501.1400, L500.4100, L501.9910 #### [facility] [address] [place], [address] PSA,Total - Annual Screenon 06-23-2024 PSA,TOT SCREEN 1.50 ng/mL Normal 0.00-4.00 [facility] Comment on above: Order Comment: Order Date: 06/23/24 Order Info: [id number] - LIPID Order Info: [id number] - URIC Order Info: [id number] - PSA Result Comment: This test was performed using the TPSA assay method for the [employer] chemistry system. Values obtained with different assay methods cannot be used interchangably. When changing PSA assays in the course of monitoring a patient, additional sequential testing should be carried out to confirm baseline values. Performed By: #### L 506.1000, L501.1400, L500.4100, L501.9910 #### [facility] [address] [place], [address] Uric Acidon 06-23-2024 URIC 5.4 mg/dL Normal 3.5-7.2 [facility] Comment on above: Order Comment: Order Date: 06/23/24 Order Info: [id number] - LIPID Order Info: [id number] - URIC Order Info: [id number] - PSA Result Comment: The drugs N-Acetylcysteine and Metamizole may falsely depress this assay. Performed By: #### L 506.1000, L501.1400, L500.4100, L501.9910 #### [facility] [address] [place], [address] Vitamin D,25 Hydroxyon 06-23 Vitamin D 25-OH 25.1 ng/mL Normal [facility] Comment on above: Order Comment: Order Date: 06/23/24 Order Info: [id number] - VITD25 Result Comment: Rosi min D 25(OH) Status Range Deficiency <20 ng/mL (50nmol/L) Insufficiency 20 - 30 ng/mL (50 - 75 nmol/L) Sufficiency 30 - 100 ng/mL (75 - 250 nmol/L) Toxicity >100 ng/mL (>250 nmol/L) Performed By: #### L 506.1000, L501.1400, L500.4100, L501.9910 #### [facility] [place], [address] CNOVon 08-14-2023 CNOV Office Visit (GENSWS ) HUBERT BURRIS ([id number]) 1965 M Date Time Provider Department 08/14/23 9:00 AM GRISEL FLORENCE During your visit today, we recorded the following information about you: Temperature Pulse Blood pressure Weight 97.5 degrees 80/minute 140/82 113.8 kg Grisel Florence PA-C 08/19/2023 11:52 AM Signed FOLLOW UP VISIT - ENDOSCOPY NAME: Hubert Olmedo Fatuma CLINIC NO.: [id number] DATE OF SERVICE: 08/14/2023 : 1965 REFERRING [...] which included preparing to see the patient, znjw-yv-kixo patient care, completing clinical documentation, obtaining and/or reviewing separately obtained history, counseling and educating the patient/family/caregi martín, independently interpreting results (not separately reported), and communicating results to the patient/family/caregi martín. BRITNEY Yepez Amanda, PA-C 08/14/2023 9:24 AM Signed The following instructions are important for you related to your office visit today with the [facility] Surgeons. INSTRUCTIONS FOLLOWING A POLYP FOUND [...] you should contact our office immediately @ [phone] and ask to be transferred to the General Surgery department. Referring Provider: NEEMA GALLO [[id number]] Allergies As of Date: 08/14/2023 Noted Allergy [...] to your office visit today with the [facility]. INSTRUCTIONS FOLLOWING A POLYP FOUND [...] you should contact our office immediately @ [phone] and ask to be transferred to the General Surgery department. Medications Discontinued During This Encou (more content not included)... Normal [facility] SURGICAL PATHOLOGYon 023 Case Report Surgical Pathology Report Case: [id number] Authorizing Provider: Neema Gallo MD Collected: 08/07/2023 10:38 AM Ordering Location: Ambulatory Surgery Received: 08/07/2023 02:25 PM Pathologist: Allie Zepeda MD Specimen: SIGMOID COLON POLYP [facility] FINAL DIAGNOSIS Sigmoid, polypectomy : -Tubular adenoma [facility] Gross Description A. SIGMOID COLON POLYP Received in formalin is one piece of dsouza, soft tissue measuring 0.3 x 0.2 x 0.2 cm. Totally submitted in one cassette. Gross examination performed at [facility], [address] [place] [id number] KK August 08, 2023 12:05 AM [facility] Performing Lab Diagnostic interpretation performed at [facility], [address] [place] [address] CLIA# [id number] Industrial Boilermaker: Iván Quinones M.D. [facility] COLONOSCOPY SCREENINGon 07-26 [facility] Colonoscopyon 08-07-2023 Colonoscopy [place] Gastrointestinal Endoscopy Patient Name: Hubert Burris Procedure [...] previous diet. Procedure Code(s): --- Professional --- 18261, Colonoscopy, flexible; with removal of tumor(s), polyp(s), or other lesion(s) by snare technique 53025, 59, Moderate sedation services provided by the same physician or other qualified health healthcare interpreter performing the diagnostic or therapeutic service that the sedation supports, requiring the presence of an independent trained observer to assist in the monitoring of the patient's level of consciousness and physiological status; initial 15 minutes of intraservice time, patient age 5 years or older Diagnosis Code(s): --- Professional --- D12.5, Benign neoplasm of si (more content not included)... Normal [facility] HISTORY PHYSICALon 3 HISTORY PHYSICAL HNO ID: [id number] Author: Neema Gallo MD Service: General Surgery [...] transmitted dis (more content not included)... Normal [facility] NURSING PROGon 08-07-2023 NURSING PROG HNO ID: [id number] Author: Jaja Payne RN Service: ? Author Type: Registered Nurse Type: Nursing Progress Note Filed: 08/07/2023 11:52 AM Note Text: Arrived in phase II via cart. Left lateral position. Sedated, but responds to verbal stimuli. Color normal; skin warm and dry. Respirations wnl and unlabored. Abdomen soft and with + bowel sounds in quads X 4. Patient resting comfortably. Jaja Payne RN Normal [facility] SURGICAL PATHOLOGYon 023 CASE REPORT Normal [facility] Comment on above: Order Comment: Speci men Type: TISSUE SPECIMEN Ordering Facility: [facility] Address: [address] [place] [address] Result Comment: Surg ica Pathology Report Case: [id number] Authorizing Provider: Neema Gallo MD Collected: 08/07/2023 10:38 AM Ordering Location: Ambulatory Surgery Received: 08/07/2023 02:25 PM Pathologist: Allie Zepeda MD Specimen: SIGMOID COLON POLYP Performed By: #### S #### [facility] CLIA [id number] [address] [place] [address] [place] FINAL DIAGNOSIS Normal [facility] Comment on above: Order Comment: Speci men Type: TISSUE SPECIMEN Ordering Facility: [facility] Address: [address] [place] [address] Result Comment: Sigm oid, polypectomy: -Tubular adenoma Performed By: #### S #### [facility] CLIA [id number] [address] [place] [address] [place] FINAL PERFORMING LAB Normal [facility] Comment on above: Order Comment: Speci men Type: TISSUE SPECIMEN Ordering Facility: [facility] Address: [address] [place] [address] Result Comment: Diag nostic interpretation performed at [place] [address] CLIA# [id number] Industrial Boilermaker: Iván Quinones M.D. Performed By: #### S #### [facility] CLIA [id number] [address] [place] [address] [place] GROSS DESCRIPTION Normal [facility] Comment on above: Order Comment: Speci men Type: TISSUE SPECIMEN Ordering Facility: [facility] Address: [address] [place] [address] Result Comment: A. S IGMOID COLON POLYP Received in formalin is one piece of dsouza, soft tissue measuring 0.3 x 0.2 x 0.2 cm. Totally submitted in one cassette. Gross examination performed at [facility], [address] [place] [address] August 08, 2023 12:05 AM Performed By: #### S #### [facility] CLIA [id number] [address] [place] [address] [place] CNOVon 06-23-2023 CNOV Office Visit (GENSWS ) HUBERT BURRIS ([id number]) 1965 M Date Time Provider Department 06/23/23 [...] bruising, denies (more content not included)... Normal [facility] 36on 01-06-2023 36 Patient has no work up, or prior imaging. Please schedule SM. Normal [facility] 36 Name of Caller: Hubert Contact [...] Fatuma Pronouns : PronounsOther : Email : [email or web address] Phone : [phone] Birthdate : 1965 12:00:00 AM BestTimeToCallBack : any AppointmentDate : LYNN PhysicianRequested : OSVALDO DAVIDSON MD Symptoms : Severe hip pain OptIn : False Normal [facility] Telephone Encounteron 2021 [employer] Authentication Interface Message Text Pt will complete medical release form. Primary care provider needs all records from Dr Mandujano. Normal [facility] [employer] Aut[employer] Interface Message Text Left msg. Please complete medical release form for . Form will need to be scanned in media and then faxed over to medical records. Normal [facility] [employer]ell[employer] Authentication Interface Message Text Situation: Nicole called into clinic from [facility]. Background: Nicole states she received a re ferral from provider, but she also needs the last visit summary of the patient please fax to [phone]. Assessment: n/a Recommendation: Please fax to [phone] to Nicole. Normal [facility] [employer] Telephone Encounteron 2021 Hand Eng[employer] Authentication Interface Message Text Most recent visit in Rheumatology was on 05/09/2020 with Marina Mandujano MD Normal [facility] [employer] Interface Message Text From: Hubert Burris To: Marina Mandujano MD Sent: 08/20/2022 6:29 AM EDT Subject: Allopurinol I am on my last refill for Allopurinol. Should I be scheduling an appointment for follow up or will new script be able to be sent? Seems to be working very well after a rough start. Thank You Normal [facility] [employer] Telephone Encounteron 2020 Hand Eng[employer] Authentication Interface Message Text Needs appt. Short refill given. No refills without appt. Please arrange even a phone visit. Hasn't been seen in over a year Normal [facility] [employer] Hand Engraver Authentication Interface Message Text Most recent visit [...] 0.10 1.1 90 37 24 Normal [facility] [employer] Telephone Encounteron 2020 [employer] Authentication Interface Message Text Most recent visit [...] 0.10 1.1 90 37 24 Normal [facility] [employer] GLUCOSEon 07-30-2021 Glucose [Mass/Vol] 102 mg/dL Normal 74 - 106 [facility] Comment on above: Performed By: #### 2 [id number] #### [facility],[address] [place] [address] LIPID PROFILEon 07-30-2021 Cholesterol [Mass/Vol] 224 mg/dL Normal 0 - 240 [facility] Comment on above: Performed By: #### 2 26899 #### [facility],[address] [place] [address] Cholesterol in HDL [Mass/Vol] 39 mg/dL Low 40 - 60 [facility] Comment on above: Performed By: #### 2 48131 #### [facility],[address] [place] [address] Cholesterol in LDL [Mass/Vol] 142 mg/dL High 0 - 129 [facility] Comment on above: Performed By: #### 2 67041 #### [facility],[address] [place] [address] Cholesterol.total/Mercedes sterol in HDL [Mass ratio] 5.7 {ratio} High 0.0 - 5.0 [facility] Comment on above: Performed By: #### 2 81123 #### [facility],[address] [place] [address] Lipid 1996 panel Normal [facility] Comment on above: Result Comment: LIPI D PROFILE Performed By: #### 2 47486 #### [facility],[address] [place] [address] Triglyceride [Mass/Vol] 213 mg/dL High 0 - 150 [facility] Comment on above: Performed By: #### 2 97455 #### [facility],[address] [place] [address] CNOVon 07-26-2020 CNOV Office Visit (AKURFL ) HUBERT BURRIS ([id number]) 1965 M Date Time Provider Department 07/26/20 11:30 AM STEVE MCCRARY During your visit today, we recorded the following information about you: Weight Height 104.3 kg 1.778 m Steve Mccrary MD 07/26/2020 11:48 AM Signed [facility] UROLOGY NEW PATIENT CLINIC NOTE PATIENT INFO: Hubert Burris (55 year old) Referred by: Ayo Mirza MD ([facility]) [address] [place] [address] 07/26/2020 UROLOGY DIAGNOSES: 1. Impotence of organic [...] Laterality Date - [facility] Colonoscopy - FOOT/TOES SURGERY PROC [...] Steve Mccrary MD Referring Provider: AYO MIRZA [[id number]] Allergies As of Date: 07/26/2020 (No Known Allergies) Date Reviewed: 07/26/2020 Reviewed by: Chel Downing Lunchroom Aide - Fully Assessed Reason for Visit: Erectile [...] Status:Closed by STEVE MCCRARY MD on 07/26/20 [facility] PROGRESSon 07-26-2020 PROGRESS HNO ID: [id number] Author: Steve Mccrary Service: ? Author Type: Physician Type: Progress Notes Filed: 07/26/2020 11:48 AM Note Text: [facility] UROLOGY NEW PATIENT CLINIC NOTE PATIENT INFO: Hubert Burris (55 year old) Referred by: Ayo Mirza MD ([facility]) [address] [place] [address] 07/26/2020 UROLOGY DIAGNOSES: 1. Impotence of organic [...] Laterality Date - [facility]2018 Colonoscopy - FOOT/TOES SURGERY PROC [...] labs, etc RTO PRN Steve Mccrary MD [facility]26[facility] HUBERT BURRIS ([id number]) 1965 M Date Time Provider Department 01/26/20 [...] Status:Closed by VALERIA NEWTON on 01/26/20 Normal [facility] CNOVon 12-07-2019 CNOV Office Visit (AGPOB1 ) FATUMAHUBERT ALCANTAR ([id number]) 1965 M Date Time Provider Department 12/07/19 [...] catching and popping sensations. He takes occasional zajr-gke-xbvwptv anti-phlegm through medications are not helpful. He [...] Laterality Date - [facility]COP [facility] 06/17/2018 Colonoscopy - FOOT/TOES SURGERY PROC [...] The knee is Stable in all planes. Alatf's testing is positive for pain. Range of [...] conservative treatment. He can continue to take oxqf-gmd-kmybxgr pain medication for any pain control issues. [...] Joe Anderson MD Referring Provider: JOE ANDERSON [[id number]] Allergies As of Date: 12/07/2019 (No Known Allergies) Date Reviewed: 12/07/2019 Reviewed by: Joe Anderson - Fully Assessed Reason for Visit: Established Patient [175] Primary Visit Diagnosis:Left knee pain, unspecified chronicity [M25.562] Other Visit Diagnosis:Primary osteoarthritis of left knee [M17.12] Order(s):CONSULT TO PHYSICAL THERAPY (AG) [7646201] Order #: [id number]: 1 Large Joint Arthro/Inj: L knee joint [ESU565] Order #: [id number] methylPREDNISolone acetate 80 mg injection (DEPO-Medrol)Disp: Rfl: [...] Status:Closed by JOE ANDERSON MD on 12/07/19 [facility] PROGRESSon 12-07-2019 PROGRESS HNO ID: [id number] Author: Joe Anderson Service: ? Author Type: [...] catching and popping sensations. He takes occasional hhfz-fav-dfgkpkt anti-phlegm through medications are not helpful. He [...] Laterality Date - COLON[facility]COP [facility]/ [facility] 06/17/2018 Colonoscopy - FOOT/TOES SURGERY PROC [...] conservative treatment. He can continue to take zrjb-fjr-idxhjlk pain medication for any pain control issues. [...] weeks (around 02/01/2020). Joe Anderson MD Normal [facility] PROGRESS HNO ID: [id number] Author: Giuliana Smith Service: ? Author Type: [...] for excessive bleeding, clots, bleeding disorders. Normal [facility] MRI KNEE WO IVCON LTon 12-02 MRI [...] tendinosis. 3. Joint effusion and Lopez's cyst. Hand Box Folder: PSCB Transcribe Date/Time: Dec 02 2019 1:59P Dictated by : TRU HARLEY MD This examination was interpreted and the report reviewed and electronically signed by: TRU HARLEY MD on Dec 02 2019 2:04PM EST Normal [facility] CNOVon 11-21-2019 CNOV Office Visit (AGPOB1 ) HUBERT BURRIS ([id number]) 1965 M Date Time Provider Department 11/21/19 [...] by ice and rest. He has take ytiv-ukp-vfaiiqu anti-inflammatories for pain control which are not very effective. He does not require assistive device for ambulation. He denies fevers chills nausea vomiting weight loss fatigue or malaise. His medical history is largely insignificant. 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 Work has been difficult since pain onset. Reviewed nursing note and current pain scale. PAST MEDICAL HISTORY Diagnosis Date - Dysmetabolic syndrome impaired fasting glucose - History of hypertension - Hyperlipidemia PAST SURGICAL HISTORY Procedure Laterality Date - [facility]COP [facility] 06/17/2018 Colonoscopy - FOOT/TOES SURGERY PROC [...] - Fully Assessed Reason for Visit: New [[id number]] Knee Pain [132] Primary Visit Diagnosis:Left knee pain, unspecified chronicity [M25.562] Order(s):XR KNEE POST OP 3V AP/LAT/MERCHANT LT [9823299] Order #: [id number] MRI KNEE WO IVCON LT [1400071] Order #: [id number] FUTURE Problem List As Of Date 11/21/2019 Noted Resolved History of hypertension [Z86.79] 09/26/2005 Hyperlipidemia [E78.5] 09/26/2005 Dysmetabolic syndrome X [E88.81] 09/26/2005 More... Finger pain [M79.646] 05/24/2012 Disposition: Return After MRI. Follow-up and Disposition History Recorded Encounter Status:Closed by JOE ANDERSON MD on 11/21/19 [facility] PROGRESSon 11-21-2019 PROGRESS HNO ID: [id number] Author: Joe Anderson Service: ? Author Type: [...] by ice and rest. He has take sakp-aqr-rekvbir anti-inflammatories for pain control which are not very effective. He does not require assistive device for ambulation. He denies fevers chills nausea vomiting weight loss fatigue or malaise. His medical history is largely insignificant. 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 Work has been difficult since pain onset. Reviewed nursing note and current pain scale. PAST MEDICAL HISTORY Diagnosis Date - Dysmetabolic syndrome impaired fasting glucose - History of hypertension - Hyperlipidemia PAST SURGICAL HISTORY Procedure Laterality Date - [facility] Colonoscopy - FOOT/TOES SURGERY PROC [...] plan. Return After MRI. Joe Anderson MD [facility] PROGRESS HNO ID: [id number] Author: Grisel Burns Service: ? Author Type: [...] Negative for excessive bleeding, clots, bleeding disorders. [facility] Clinical Summary: HMSPatient IDon 03-12-2018 OOP Invalid Interpretation Code [facility] Work Phone: Office Visit: New - 1st visi t with practice, Rm: 3on 03-12-2018 NEGATED: Highlighted rowDocumentation of current medications (procedure) Done Invalid Interpretation Code [facility] Work Phone: NEGATED: Highlighted rowDocumentation of current medications (procedure) T Invalid Interpretation Code [facility] Work Phone: NEGATED: Highlighted rowTobacco smoking status NHIS Tobacco smoking status NHIS Invalid Interpretation Code [facility] Work Phone: Vital Signs Date Time Vital Sign Value Performing Clinician Facility 03-16-2025 15:40-0400 Body height 177.[address] Ayo Mirza MD Work Phone: [facility] 03-16-2025 15:40-0400 Body mass index (BMI) [Ratio] 35.9 kg/m2 Dr. Ayo Mirza MD Work Phone: [facility] 03-16-2025 15:40-0400 Body temperature 97.9 [degF] Dr. Ayo Mirza MD Work Phone: [facility] 03-16-2025 15:40-0400 Body weight 113.[address] Ayo Mriza MD Work Phone: [facility] 03-16-2025 15:40-0400 Diastolic blood pressure 88 mm[Hg] Dr. Ayo Mirza MD Work Phone: [facility] 03-16-2025 15:40-0400 Heart rate 73 /min Dr. Ayo Mirza MD Work Phone: [facility] 03-16-2025 15:40-0400 SaO2% (BldA) [Mass fraction] 98 % Dr. Ayo Mirza MD Work Phone: [facility] 03-16-2025 15:40-0400 Systolic blood pressure 124 mm[Hg] Dr. Ayo Mirza MD Work Phone: [facility] 08-14-2023 08:41-0400 Body temperature 97.5 [degF] Grisel Cassopolis PA-C Work Phone: [facility] 08-14-2023 08:41-0400 Body weight 113.76 kg Grisel Naman PA-C Work Phone: [facility] 08-14-2023 08:41-0400 Diastolic blood pressure 82 mm[Hg] Grisel Cassopolis PA-C Work Phone: [facility] 08-14-2023 08:41-0400 Heart rate 80 /min Grisel Naman PA-C Work Phone: [facility] 08-14-2023 08:41-0400 SaO2% (BldA) [Mass fraction] 97 % Grisel Cassopolis PA-C Work Phone: [facility] 08-14-2023 08:41-0400 Systolic blood pressure 140 mm[Hg] Grisel Naman PA-C Work Phone: [facility] 08-07-2023 11:18-0400 Diastolic blood pressure 74 mm[Hg] Neema Gallo MD Work Phone: [facility] 08-07-2023 11:18-0400 Heart rate 58 /min Neema Gallo MD Work Phone: [facility] 08-07-2023 11:18-0400 Respiratory rate 16 /min Neema Gallo MD Work Phone: [facility] 08-07-2023 11:18-0400 SaO2% (BldA) [Mass fraction] 95 % Neema Gallo MD Work Phone: [facility] 08-07-2023 11:18-0400 Systolic blood pressure 141 mm[Hg] Neema Gallo MD Work Phone: [facility] 08-07-2023 09:53-0400 Body temperature 97.9 [degF] Neema Gallo MD Work Phone: [facility] 06-23-2023 08:11-0400 Body height 177.8 cm Grisel Naman PA-C Work Phone: [facility] 06-23-2023 08:11-0400 Body temperature 98.6 [degF] Grisel Cassopolis PA-C Work Phone: [facility] 06-23-2023 08:11-0400 Body weight 112.67 kg Grisel Naman PA-C Work Phone: [facility] 06-23-2023 08:11-0400 Diastolic blood pressure 80 mm[Hg] Grisel Cassopolis PA-C Work Phone: [facility] 06-23-2023 08:11-0400 Heart rate 96 /min Grisel Cassopolis PA-C Work Phone: [facility] 06-23-2023 08:11-0400 SaO2% (BldA) [Mass fraction] 99 % Grisel Florence PA-C Work Phone: [facility] 06-23-2023 08:11-0400 Systolic blood pressure 122 mm[Hg] Grisel ALEJANDRO-Chinedu Work Phone: [facility] NEGATED: Highlighted [id number] 11:25-0400 BMI (Body Mass Index) 33.12 kg/m2 [place] [facility] Work Phone: NEGATED: Highlighted [id number] 11:25-0400 BP Diastolic 93 mm[Hg] [place] [facility] [facility] Work Phone: NEGATED: Highlighted [id number] 11:25-0400 BP Diastolic 90 mm[Hg] [place] [facility] Work Phone: NEGATED: Highlighted [id number] 11:25-0400 BP Systolic 139 mm[Hg] [place] [facility] [facility] Work Phone: NEGATED: Highlighted [id number] 11:25-0400 BP Systolic 137 mm[Hg] [facility] Work Phone: NEGATED: Highlighted [id number] 11:25-0400 Height 177.8 cm [place] [facility] Work Phone: NEGATED: Highlighted [id number] 11:25-0400 Height 178 cm [place] [facility] Work Phone: NEGATED: Highlighted [id number] 11:25-0400 Pulse (Heart Rate) 68 /min Fernanda [facility] Work Phone: NEGATED: Highlighted [id number] 11:25-0400 Weight 104.33 kg [place] [facility] Work Phone: NEGATED: Highlighted [id number] 11: Weight 105 kg Fernanda Whitezoe [facility] Work Phone: Encounters Encounter Date Encounter Type Care Provider Facility Start: 06-02-2025 ambulatory Ayo Gomes lity:[facility] Start: 04-10-2025 End: 04-10-[address] Ayo Mirza MD Work Phone: [facility] Work Phone: Start: 04-10-2025 End: 04-10-[address] Ayo Mirza MD -Laboratory [facility] Start: 04-10-2025 End: 04-10-2025 ambulatory Ayo Mirza Facility:[facility] Start: 03-16-2025 End: 03-16-2025 Patient encounter procedure John [facility]LE[facility]ANDR[facility] Work Phone: Start: 03-16-2025 End: 03-16-2025 ambulatory Ayo Mirza Facility:[facility] Start: 12-20-2024 End: 12-20-[address] Ayo Mirza MD Work Phone: [facility] Work Phone: Start: 12-20-2024 End: 12-20-[address] Ayo Mirza MD -Laboratory, [facility] Start: 12-20-2024 End: 12-20-2024 ambulatory Ayo Mirza Facility:[facility] Start: 11-05-2024 End: 11-05-2024 Letter encounter Marina Mandujano MD Work Phone: [facility] Start: 07-31-2024 End: 07-31-2024 Letter encounter Marina Mandujano MD Work Phone: [facility] Start: 06-23-2024 End: 06-23-2024 ambulatory Ayo Mirza Facility:[facility] Start: 08-14-2023 End: 08-14-2023 ambulatory AYO MIRZA Facility:[facility] Start: 08-14-2023 End: 08-14-2023 Patient encounter procedure Grisel Florence PA-C Work Phone: General Surgery Comment on above: History of colonic p olyps (Primary Dx); Tubular adenoma Start: 08-07-2023 End: 08-07-2023 [facility] Start: 08-07-2023 End: 08-07-2023 Subsequent hospital visit by physician Neema Gallo MD Work Phone: Ambulatory Surgery Comment on above: History of colonic p olyps [Z86.010] Start: 06-23-2023 End: 06-23-2023 Discharged Recurring [facility] Work Phone: Start: 06-23-2023 End: 06-23-2023 ambulatory [place] Sub[place] MIRZA Facility:[facility] Start: 06-23-2023 End: 06-23-2023 Patient encounter procedure Grisel Florence PA-C Work Phone: General Surgery Comment on above: History of colonic p olyps (Primary Dx) Start: 01-06-2023 Telephone encounter Osvaldo renner MD Work Phone: [facility] 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 Start: 10-28-2022 Letter encounter Marina santos MD Work Phone: [facility] Start: 08-20-2022 ambulatory Marina Winn i, MD Work Phone: [facility] Rheumatology (Arthritis) Comment on above: Allopurinol Start: 08-20-2022 E-mail encounter fro m caregiver Marina Mandujano MD Work Phone: [facility] Rheumatology (Arthritis) Start: 07-30-2021 End: 07-30-2021 ambulatory BENIGNO [facility] Start: 03-12-2018 End: 03-12-2018 Patient encounter procedure Naren Mirza MD Work Phone: [facility] Work Phone: Procedures Date Procedure Procedure Detail Performing Clinician Start: 12-20-2024 Allergen spec ige qu al multiallergen screen Dr. Ayo Mirza MD Work Phone: Start: 12-20-[address] Ayo Mirza MD Work Phone: Start: 12-20-[address] [place] Ayo Mirza MD Work [...] Mirza MD Work Phone: Start: 12-20-2024 Plantain (Tunisian) RAST Dr. Ayo Mirza MD Work Phone: Start: 12-20-[address] Orlando Mirza MD Work Phone: Start: 12-20-[address] Dean Mirza MD Work Phone: Start: 12-20-[address] Dean Mirza MD Work Phone: Start: 08-07-2023 Level iv surg pathol ogy gross&microscopic exam Neema Gallo MD Work Phone: Start: 08-07-2023 Colonoscopy flx dx w /collj spec when pfrmd Grisel Florence PA-C Work Phone: Start: 08-07-2023 Colonoscopy Grisel Gra f PA-C Work Phone: Start: 06-23-2018 Colonoscopy Grisle Gra f PA-C Work Phone: Start: 03-12-2018 End: 03-12-2018 Blood pressure outside of normal parameters - follow-up documented Naren Mirza MD Work Phone: Start: 03-12-2018 End: 03-12-2018 BMI documented as above normal parameters - follow-up documented Naren Mirza [...] DTaP/Tdap/Td Vaccines (4 - Td or Tdap) [facility] Start: 04-23-2032 Tetanus vaccination Tetanus (Td or Tdap) Booster [facility] Start: 04-23-2032 Urine microalbumin profile DTaP,Tdap,Td Vaccine (4 - Td or Tdap) [facility] Start: 08-07-2028 Colonoscopy Colonoscopy [facility] Start: 08-07-2028 Colorectal Cancer Screening Colorectal Cancer Screening [facility] Start: 2025 Hepatitis B (HBV) Vaccine (optional start 60+ years) Hepatitis B (HBV) Vaccine (optional start 60+ years) [facility] Start: 06-26-2024 COVID-19 Vaccine ( season) COVID-19 Vaccine ( season) [facility] Start: 06-26-2024 COVID-19 Vaccine ( season) COVID-19 Vaccine ( season) [facility] Start: 06-26-2024 Influenza vaccination Influenza Vaccine (#1) [facility] Start: 06-26-2023 Covid-19 Vaccine ( season) Covid-19 Vaccine ( season) [facility] Start: 06-26-2023 Influenza vaccination [facility] Start: 06-23-2023 Colonoscopy COLONOSCOPY [facility] Start: 06-23-2023 COLORECTAL CANCER SCREENING COLORECTAL CANCER SCREENING [facility] Start: 04-13-2023 Urine microalbumin profile DTAP,TDAP,TD (2 - Td or Tdap) [facility] Start: 10-26-2022 DEPRESSION ASSESSMENT DEPRESSION ASSESSMENT [facility] Start: 07-26-2022 Influenza vaccination Influenza Vaccine (#1) [facility] Start: 06-26-2022 Influenza vaccination Influenza Vaccine (#1) [facility] Start: 12-29-2021 Shingles (RZV) Vaccine (2 of 2) Shingles (RZV) Vaccine (2 of 2) [facility] Start: 12-29-2021 Zoster Vaccines (2 of 2) Zoster Vaccines (2 of 2) [facility] Start: 12-18-2021 COVID-19 Vaccine (3 - Booster for Tam series) COVID-19 Vaccine (3 - Booster for Tam series) [facility] Start: 12-18-2021 COVID-19 VACCINE (4 - Moderna series) COVID-19 VACCINE (4 - Moderna series) [facility] Start: 07-31-2021 PROSTATE CANCER SCREENING DISCUSSION PROSTATE CANCER SCREENING DISCUSSION [facility] Start: 07-22-2021 Lipid 1996 panel - Serum or Plasma Lipid Screening [facility] Start: 07-22-2021 LIPID SCREEN LIPID SCREEN [facility] Start: 03-28-2021 COVID-19 Vaccine (2 - Booster for Tam series) COVID-19 Vaccine (2 - Booster for Tam series) [facility] Start: 07-22-2019 DIABETES SCREEN DIABETES SCREEN [facility] Start: 07-22-2019 Diabetes Screening Diabetes Screening [facility] Start: 03-12-2018 End: 03-12-2018 Appointment Appointment [facility] Work Phone: Start: 08-21-2017 FECAL OCCULT BLOOD FECAL OCCULT BLOOD [facility] Start: 2015 Measurement of occult blood in single stool specimen [facility] Start: 2015 Pneumococcal vaccination Pneumococcal Vaccine(s) (50+ yrs) (1 of 1 - PCV) [facility] Start: 2015 Screening for malignant neoplasm of colon [facility] Scre[facility] Start: 2015 SHINGRIX VACCINE (1 of 2) SHINGRIX VACCINE (1 of 2) [facility] Start: 2010 COLOGUARD (FIT-DNA) COLOGUARD (FIT-DNA) [facility] Start: [address] COLONOGRAPHY [facility] Start: 2010 Screening for malignant neoplasm of colon [facility] Start: 2010 SIGMOIDOSCOPY SIGMOIDOSCOPY [facility] Start: 01-25-2000 Lipid panel Cholesterol [facility] Start: 01-25-1984 Hepatitis A (HAV) Vaccine (optional start 19+ years) Hepatitis A (HAV) Vaccine (optional start 19+ years) [facility] Start: 01-25-1984 Hepatitis B vaccination Hepatitis B (HBV) Vaccine (1 of 3 - 19+ 3-dose series) [facility] Start: 1983 Hepatitis C screening [facility] Start: 1983 HEPATITIS C SCREENING HEPATITIS C SCREENING [facility] Start: 1983 HIV SCREENING HIV SCREENING [facility] Start: 01-25-1980 HIV screening HIV Test [facility] Start: 1966 MMR Vaccines (1 of 1 - Standard series) MMR Vaccines (1 of 1 - Standard series) [facility] Start: 1965 HEPATITIS B (1 of 3 - 3-dose series) HEPATITIS B (1 of 3 - 3-dose series) [facility] Start: 1965 Hepatitis B Vaccine (1 of 3 - 3-dose series) Hepatitis B Vaccine (1 of 3 - 3-dose series) [facility] Start: 1965 Hepatitis B Vaccines (1 of 3 - 3-dose series) Hepatitis B Vaccines (1 of 3 - 3-dose series) [facility] Start: 1965 HIV screening HIV Screening [facility] Start: 1965 Lipid panel Lipid Panel [facility] Start: 1965 Screening for malignant neoplasm of colon [facility] Patient Education \cps-sql1\CPS_ PtEducatio n\htn.pdf, \cps-sql1\CPS_PtEducatio n\htn.pdf, \cps-sql1\CPS_PtEducatio n\htn.pdf [facility] Work Phone: [facility] Immunizations Immunization Date Immunization Notes Care Provider [facility] 04-23-2022 tetanus toxoid, reduced diphtheria toxoid, and acellular pertussis vaccine, adsorbed Marina Mandujano MD Work Phone: [facility] 11-03-2021 zoster vaccine recombinant Marina Mandujano MD Work Phone: [facility] 07-30-2021 influenza, injectabl e, quadrivalent, preservative free Marina Mandujano MD Work Phone: [facility] 07-30-2021 influenza virus vaccine, unspecified formulation Marina Mandujano MD Work Phone: [facility] 01-31-2021 Tam SARS-COV-2 (COVID-19) vaccine, vector non-replicating, recombinant spike protein-Ad26, preservative free, 0.5 mL (PCE=748) Marina Mandujano MD Work Phone: [facility] 05-26-2018 tetanus toxoid, reduced diphtheria toxoid, and acellular pertussis vaccine, adsorbed Marina Mandujano MD Work Phone: [facility] 10-26-2013 influenza, seasonal, injectable Marina Mandujano MD Work Phone: [facility] 04-13-2013 tetanus toxoid, reduced diphtheria toxoid, and acellular pertussis vaccine, adsorbed Marina Mandujano MD Work Phone: [facility] No information available. Fernanda Hill [facility] Work Phone: Payers Date Payer Category Payer Self-pay [id number] 2018 Commercial Indemnity [employer] - HMO/PPO/POS [id number] 2018 Unknown [id number] 2014 Unknown [id number] 1965 Unknown [id number] Self-pay SELF PAY INSURANCE [id number] Unknown [facility] [id number] Unknown [id number] Unknown [id number] 62 Unknown [id number] 62 Unknown [id number] 62 Unknown [id number] Social History Date Type Detail Facility Start: 05-09-2020 End: 08-07-2023 Tobacco smoking status UTIS Never smoked tobacco [facility] Start: 05-09-2020 End: 08-07-2023 Tobacco use and exposure User of smokeless tobacco [facility] Start: 1965 Sex Assigned At Not on file [facility] Tobacco smoking status [facility] Tobacco smoking consumption unknown [facility] History of tobacco use Cigarette Smoker [facility] Start: 06-23-2023 Tobacco use and exposure Former smokeless tobacco user [facility] End: 06-07-2010 History of tobacco use Snuff User [facility] Start: 06-23-2023 End: 08-07-2023 Alcohol intake Current drinker of alcohol (finding) [facility] Start: 05-09-2020 End: 06-23-2023 Alcohol intake [facility] Start: 05-09-2020 End: 06-23-2023 Tobacco use panel [facility] National Score (1-100), lower number is lower risk Not on file [facility] Start: 04-13-2013 Alcohol Comment history of hea vier alcohol use [facility] Start: 1965 Sex Assigned At Male [facility] Start: 05-01-2020 End: 01-04-2025 Sex Male (finding) [facility] NEGATED: Highlighted rowStart: 03-12-2018 End: 03-12-2018 Alcohol intake Never smoker [facility] Work Phone: NEGATED: Highlighted rowStart: 03-12-2018 End: 03-12-2018 Alcohol use ETOH USE Yes [facility] Work Phone: NEGATED: Highlighted rowStart: 03-12-2018 End: 03-12-2018 Assertion Never smoker [facility] Work Phone: Medical Equipment Procedure Code Equipment Code Equipment Origin al Text Equipment Identifier Dates Mesh Srg Vntrlx 1.7x1.7in Umb - [id number] Start: 06-19-2011 Clinical Notes 08-20-2022 to 03-16-2025 Note Date & Type Note Facility 03-16-2025 Evaluation note Diagnosis Onset Date Resolution Acute bronchitis acute February 3:38pm Headache acute March 16, 2025 3:38pm [facility] Work Phone: [phone] NoteHNO ID: [id number] Author: Grisel Florence PA-C Service: ? Author Type: Physician Sales Representative Aircraft Type: Progress Notes Filed: 08/19/2023 11:52 AM Note Text: FOLLOW UP VISIT - ENDOSCOPY NAME: Hubert Olmedo [facility] [address] NO.: [id number] DATE OF SERVICE: 08/14/2023 : 1965 REFERRING [...] which included preparing to see the patient, [id number] patient care, completing clinical documentation, obtaining and/or reviewing separately obtained history, counseling and educating the patient/family/caregiver, independently interpreting results (not separately reported), and communicating results to the patient/family/caregiver. [facility]* Patient Instructions* Grisel Florence PA-C - 08/14/2023 9:24 AM EDT The following instructions are important for you related to your office visit today with the [facility] Surgeons. INSTRUCTIONS FOLLOWING A POLYP FOUND [...] you should contact our office immediately @ [phone] and ask to be transferred to the General Surgery department. documented in [facility] History of Present illness Narrative* Grisel Florence PA-C - 08/14/2023 9:13 AM EDT FOLLOW UP VISIT - ENDOSCOPY NAME: Hubert Olmedo [facility] [address] NO.: [id number] DATE OF SERVICE: 08/14/2023 : 1965 REFERRING [...] which included preparing to see the patient, [id number] patient care, completing clinical documentation, obtaining and/or reviewing separately obtained history, counseling and educating the patient/family/caregiver, independently interpretin g results (not separately reported), and communicating results to the patient/family/caregiver. Grisel Florence PA-C documented in this encounterCos[facility]10-[facility] Nurse Note* Jaja Payne RN - 08/07/2023 10:48 AM EDT Arrived in phase II via cart. Left lateral position. Sedated, but responds to verbal stimuli. Colornormal; skin warm and dry. Respirations wnl and unlabored. Abdomen soft and with + bowel sounds in quads X 4. Patient resting comfortably. Jaja Payne RN documented in this encounterCoshocton [facility] Center10-13-2023 History and physical note * Neema Gallo [...] entered by the nurse and reviewed by il Nursing Notes: Akua Reddy RN 06/23/2023 8:28 [...] mail. Grisel Florence PA-C documented in this encounterCoshocton [facility] Center08-29-2023 NoteHNO ID: [id number] Author: Grisel Florence PA-C Service: ? Author Type: Physician Sales Representative Aircraft Type: Progress Notes Filed: 06/23/2023 9:05 AM [...] entered by the nurse and reviewed by il Nursing Notes: Akua Reddy RN 06/23/2023 8:28 [...] back problems, denies sciatica (more content not included)...[facility]08-29-2023 Nurse Note* Akua Reddy RN - 06/23/2023 [...] 2017 Akua Reddy RN documented in this encounterCoshocton [facility] Center08-29-2023 History of Present illness Narrative* Grisel Florence [...] mail. Grisel Florence PA-C documented in this encounterCoshocton [facility]03-14-2023 Telephone encounter Note * Telephone Encounter - Jessi Boothe - 01/06/2023 12:35 PM EDT Patient has no work up, or prior imaging. Please schedule SM. [facility] [id number] Miscellaneous Notes* Telephone Encounter - Jessi Boothe [...] Fatuma Pronouns : PronounsOther : Email : [email or web address] Phone : [phone] Birthdate : 1965 12:00:00 AM BestTimeToCallBack : any AppointmentDate : LYNN PhysicianRequested : OSVALDO DAVIDSON MD Symptoms : Severe hip pain OptIn : False documented in this encounterSUniversity [facility]als [facility] Medical [id number] Telephone encounter Note* Telephone Encounter - Marina [...] Fatuma Pronouns : PronounsOther : Email : [email or web address] Phone : [phone] Birthdate : 1965 12:00:00 AM BestTimeToCallBack : any AppointmentDate : LYNN PhysicianRequested : OSVALDO DAVIDSON MD Symptoms : Severe hip pain OptIn : False [facility] [id number] NoteI don't see a referral. I didn't [...] she doesn't need a referral from me.[facility] [id number] Telephone encounter Note* Telephone Encounter - Rui Espinosa - 08/29/2022 11:22 AM EDT Left vm msg. Please complete medical release form for MH. Form will need to be scanned in media andthen faxed over to medical records. [id number] Miscellaneous Notes* Telephone Encounter - Rui Espinosa [...] rough start. Thank You documented in this [id number] Telephone encounter Note* Telephone Encounter - Misty Man LPN - 08/20/2022 10:21 AM EDT Most recent visit in Rheumatology was on 05/09/2020 with Marina Mandujano MD T [facility] Work Phone: [phone]) 709-224710-26-2022 Telephone encounter Note* Telephone Encounter - Misty [...] after a rough start. [facility] You [facility]* Diagnosis History of colonic polyps- Primary Personal history of colonic polyps documented in this encounter [facility] note* Diagnosis History of colonic polyps- Primary Personal history of colonic polyps Tubular adenoma Benign neoplasm of unspecified site documented in this encounter [facility] note* Diagnosis Screening for colon cancer- Primary Special screening for malignant neoplasms, colon History of colonic polyps Personal history of colonic polyps documented in this encounter [facility] noteNo assessment information availableWKettering Health Behavioral [facility] Work Phone: Reason for referral (narrative)* Outpatient Procedure (Routine) - Closed Specialty Diagnoses / Procedures Referred By Marychuy t Referred To Contact [facility] Diagnoses History of colonic polyps Procedures COLONOSCOPY SCREENING COLONOSCOPY FLX DX W/COLLJ SPEC WHEN PFRMD Grisel Florence PA-C [address] [place] [address] [facility] [address] [place] [id number] Referral ID Status Reason Start Date Expiration Date V isits Requested Visits Authorized [id number] Closed Auto-Generate d Referral 06/23/2023 06/23/2024 1 1 [facility] for referral (narrative)No reason for referral information availableWKettering Health Behavioral Medical Center Work Phone: Reason for visit Narrative* Outpatient Procedure (Routine) - Closed Specialty Diagnoses / Procedures Referred By Contac t Referred To Contact [facility] Diagnoses History of colonic polyps Procedures COLONOSCOPY SCREENING COLONOSCOPY FLX DX W/COLLJ SPEC WHEN PFRMD Grisel Florence PA-C [address] [place] [address] [facility] [address] [place] [place] [address] Referral ID Status Reason Start Date Expiration Date V isits Requested Visits Authorized [id number] Closed Auto-Generate d Referral 06/23/2023 06/23/2024 1 1 [facility] Instructions Instruction Description Start Date Please follow-up with Primar y Care Physician or Newsagent for treatment or adjustment of medication regarding [...] section and content) DATE CREATED AUTHOR 07/26/2020 [facility] DATE CREATED AUTHOR AUTHOR'S ORGANIZ ATION 07/26/2020 [facility] DATE CREATED AUTHOR AUTHOR'S ORGANIZ ATION 08/01/2021 [facility] DATE CREATED AUTHOR AUTHOR'S ORGANIZ ATION 08/30/2022 [employer] DATE CREATED AUTHOR AUTHOR'S ORGANIZ ATION 01/07/2023 [facility] DATE CREATED AUTHOR AUTHOR'S ORGANIZ ATION 08/21/2023 [facility] DATE CREATED AUTHOR AUTHOR'S ORGANIZ ATION 05/23/2025 [facility] Care Teams (unrecognized sec tion and content) 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 Start Date End Date Marina Mandujano MD [facility] [employer] [place] [id number] Physician Rheumatology 07/31/20 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 Start Date End Date Marina Mandujano MD [address] [place], [place] [id number] Physician Rheumatology 07/31/20 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 Start Date End Date Ayo Mirza MD [address] [place] [address] PCP - General Family Medicine 05/28/18 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 Start Date End Date Ayo Mirza MD [address] [place], [place] [id number] PCP - General Family Medicine 05/28/18 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 Start Date End Date Ayo Mirza MD [address] [place] [id number] PCP - General Family Medicine 05/28/18 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 Start Date End Date Marina Mandujano MD [address] [place], [place] [id number] Physician Rheumatology 07/31/20 Team Status: Active Member [...] December 20, 2024 End: December 20, 2024 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 Start Date End Date Marina Mandujano MD [address] [place], [place] [id number] Physician Rheumatology 07/31/20 Team Status: Inactive Member [...] section and content) 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 01/06/2023 Reason [...] or prosecute any alcohol or drug abuse patient.[facility] CenterIn the event this information is protected by the Federal Confidentiality of Alcohol and Drug Abuse Patient Records regulations: The Federal rules restrict any use of the information to criminally investigate or prosecute any alcohol or drug abuse patient.[facility] CenterIn the event this information is protected by the Federal Confidentiality of Alcohol and Drug Abuse Patient Records regulations: The Federal rules restrict any use of the information to criminally investigate or prosecute any alcohol or drug abuse patient.[facility] Goals (unrecognized section and content) Goals may [...] BE BASED ON THE PRIMARY CLINICAL RECORDS. [facility]. provides no warranty or guarantee of the accuracy or completeness of information in this document.
[2025-06-03 12:08] LABS: Lyme Scn Total Ab w/Rflx Negative (Negative)
== END | disposition home or self-care (01) ==
LOC: CVS 07:24
PROVIDERS: PCP Family Medicine
DX: R25.2 Cramp and spasm (principal); M79.10 Myalgia, unspecified site; M79.604 Pain in right leg; M79.605 Pain in left leg
CPT/HCPCS: 36415; 86618; 93922

== ENCOUNTER → 2025-10-09 | Outpatient (CLI) | payer OTHER, SELFPAY ==
[2025-10-09 10:48] LABS: Hematocrit 47.4 % (40-54); Hemoglobin 15.7 g/dL (13.0-16.5); Immature Granulocytes Count 0.020 X10^3/uL (0.0-0.0); Mean Corp Hgb Conc 33.1 g/dL (32-36); Mean Corpuscular Volume 91.7 fL (80-94); Mean Platelet Vol. 11.1 fl (6.2-12.0); NRBC Flagged by Analyzer 0 % (0-5); Platelet Count 160 K/mm3 (150-450); RBC Distribution Width CV 12.9 % (11.6-14.6); RBC Distribution Width SD 43.5 fl (35.1-43.9); Red Blood Count 5.17 M/mm3 (4.6-6.2); White Blood Count 4.8 K/mm3 (4.4-11.0)
[2025-10-09 11:34] LABS: AST(SGOT) 26 U/L (<=37); Alanine Aminotransfer ALT/SGPT 33 U/L (<=46); Albumin, Serum 4.2 g/dL (3.4-4.8); Alkaline Phosphatase 82 U/L (40-129); Anion Gap 12 (5-15); BUN 13 mg/dL (4-19); BUN/Creat Ratio 14.4 RATIO (10-20); Bilirubin, Direct 0.22 mg/dL (0.00-0.30); Calcium,Total 9.0 mg/dL (7.6-11.0); Carbon Dioxide 23.5 mmol/L (21.0-32.0); Chloride 106 mmol/L (98-108); Cholesterol 223 mg/dL (<=200); Globulin 2.7 g/dL (2.2-4.2); Glucose 108 mg/dL (70-99); Hepatitis B Surface Antigen Nonreactive (Nonreactive); Hepatitis C Antibody Nonreactive (Nonreactive); Low Density Lipoprotein Calc. 146 mg/dL; Potassium 4.1 mmol/L (3.3-5.1); Triglycerides 183 mg/dL; Very Low Density Lipoprotein 37 mg/dL (5-40); cholesterol:hdl ratio screen 5.09
[2025-10-12 10:08] LABS: QNTFERON TB Mitogen Value > 10.00 IU/mL (.); QNTFERON TB Nil Value 0.04 IU/mL (.); QNTFERON TB1+ Ag Value 0.04 IU/mL (.); QNTFERON TB2+ Ag Value 0.05 IU/mL (.); QNTIFERON TB Positive Criteria Negative (Negative)
== END | disposition home or self-care (01) ==
LOC: MTLAB 07:53
PROVIDERS: PCP Family Medicine; Referring Provider Nurse Practitioner Family; Visit Provider Nurse Practitioner Family
DX: Z79.899 Other long term (current) drug therapy (principal)
CPT/HCPCS: 36415; 80048; 80061; 80076; 85025; 86480; 86704; 86706; 86803; 87340